=== PATIENT | female | born 1980 | race Caucasian/White ===

== ENCOUNTER 2017-02-01 12:00 | Emergency (ER) | payer OTHER ==
[2017-02-01] MEDS ORDERED: SODIUM CHLORIDE 0.9% 1,000 ML IV STA (12:34)
[2017-02-01] MEDS ORDERED: HYDROmorphone 1 MG/ML 1 ML SYRINGE IVP STA (12:34)
[2017-02-01] MEDS ORDERED: ONDANSETRON 4 MG/2 ML VIAL IVP STA (12:34)
--- NOTE | 2017-02-01 12:37 | ED ---
General Adult HPI - General Chief complaint: Abdominal Pain Stated complaint: ABDOMINAL PAIN, POSS CYST Time Seen by Provider: 02/01/17 12:31 Source: patient, RN notes reviewed Mode of arrival: ambulatory Limitations: no limitations - History of Present Illness Initial comments: Patient 36-year-old female who presents emergency room today with a chief complaint of abdominal pain 4 days. Patient does admit to Some Pain Located in the Left Lower Quadrant. She States Feels Similar to Her Ovarian Cysts That She's Had in the past. She Does Admit to Feeling Nauseated. States That She Went to the Family Doctor Earlier This Morning Was Advised Coming Here to the Emergency Room for Further Evaluation. Patient Denies Any Other Complaints or Associated Symptoms. Patient denies any recent fever, chills, shortness of breath, chest pain, back pain, vomiting, numbness or tingling, dysuria or hematuria, constipation or diarrhea, headaches or visual changes, or any other complaints. - Related Data Home Medications Medication Instructions Recorded Confirmed Cetirizine HCl [Zyrtec] 10 mg PO DAILY 03/10/14 02/01/17 Cholecalciferol [Vitamin D3] 2,000 unit PO BID 02/01/17 02/01/17 Montelukast [Singulair] 10 mg PO DAILY 02/01/17 02/01/17 Omeprazole [PriLOSEC] 20 mg PO DAILY 02/01/17 02/01/17 Qvo-Qoux-Smvme Acid 1 cap PO DAILY 02/01/17 02/01/17 [-U Capsule (formulary)] Previous Rx's Medication Instructions Recorded Hydrocodone/Acetaminophen [[place] 1 each PO Q6HR PRN #10 tab 02/01/17 5-325] Allergies Allergy/AdvReac Type Severity Reaction Status Date / Time promethazine HCl AdvReac JITTERY Verified 02/01/17 12:50 [From Phenergan] topiramate [From Topamax] AdvReac ANXIETY Verified 02/01/17 12:50 Review of Systems ROS Statement: Those systems with pertinent positive or pertinent negative responses have been documented in the HPI. ROS Other: All systems not noted in ROS Statement are negative. Past Medical History Past Medical History: Hyperlipidemia History of Any Multi-Drug Resistant Organisms: None Reported Past Surgical History: Appendectomy Additional Past Surgical History / Comment(s): laproscopy, ovarian cysts removed Past Anesthesia/Blood Transfusion Reactions: No Reported Reaction Past Psychological History: Anxiety, Depression Smoking Status: Former smoker Past Alcohol Use History: None Reported Past Drug Use History: None Reported General Exam - General Exam Comments Initial Comments: General: The patient is awake and alert, in no distress, and does not appear acutely ill. Eye: Pupils are equal, round and reactive to light, extra-ocular movements are intact. No nystagmus. There is normal conjunctiva bilaterally. No signs of icterus. Ears, nose, mouth and throat: There are moist mucous membranes and no oral lesions. Neck: The neck is supple, there is no tenderness or JVD. Cardiovascular: There is a regular rate and rhythm. No murmur, rub or gallop is appreciated. Respiratory: Lungs are clear to auscultation, respirations are non-labored, breath sounds are equal. No wheezes, stridor, rales, or rhonchi. Gastrointestinal: Normal appearance them. Normal bowel sounds. Abdomen soft on palpation. Patient does have mild tenderness left lower quadrant. Mild tenderness right lower quadrant. No rebound tenderness. No Guarding. No CVA tenderness. Musculoskeletal: Normal ROM, no tenderness. Strength 5/5. Sensation intact. Pulses equal bilaterally 2+. Neurological: A&O x 3. CN II-XII intact, There are no obvious motor or sensory deficits. Coordination appears grossly intact. Speech is normal. Skin: Skin is warm and dry and no rashes or lesions are noted. Psychiatric: Cooperative, appropriate mood & affect, normal judgment. Limitations: no limitations Course Vital Signs 02/01/17 02/01/17 12:23 13:45 Temperature 98.1 F Pulse Rate 78 66 Respiratory 22 20 Rate Blood Pressure 108/68 122/71 O2 Sat by Pulse 99 99 Oximetry Medical Decision Making - Medical Decision Making Patient reexamined at this time shows no signs of stress she sitting up in bed. Patient's labs been reviewed. Ultrasound does show evidence for a right- sided ovarian cyst. Does show evidence for possible fibroid and thickened endometrium. Patient does have history of endometriosis. Patient x-ray unremarkable. Patient does have follow-up with the family doctor who is having her follow-up with [facility]. At this time was discussed about possibility of a CT of the abdomen and pelvis. Patient feels comfortable being discharged home. This felt that her symptoms are consistent with the ovarian cyst at this time as there is no nausea no vomiting or diarrhea and advised to follow-up the family doctor and [facility] over the next 2 days. Will be given short prescription of pain medication. Advised return if any symptoms increase or worsen. - Lab Data Result diagrams: 02/01/17 12:55 02/01/17 12:55 Lab Results 02/01/17 02/01/17 02/01/17 Range/Units 12:45 12:45 12:55 WBC 7.3 (3.8-10.6) k/uL RBC 5.01 (3.80-5.40) m/uL Hgb 14.5 (11.4-16.0) gm/dL Hct 41.7 (34.0-46.0) % MCV 83.2 (80.0-100.0) fL MCH 29.0 (25.0-35.0) pg MCHC 34.8 (31.0-37.0) g/dL RDW 13.3 (11.5-15.5) % Plt Count 283 (150-450) k/uL Neutrophils % 64 % Lymphocytes % 27 % Monocytes % 6 % Eosinophils % 1 % Basophils % 1 % Neutrophils # 4.7 (1.3-7.7) k/uL Lymphocytes # 1.9 (1.0-4.8) k/uL Monocytes # 0.5 (0-1.0) k/uL Eosinophils # 0.1 (0-0.7) k/uL Basophils # 0.0 (0-0.2) k/uL Sodium (137-145) mmol/L Potassium (3.5-5.1) mmol/L Chloride (98-107) mmol/L Carbon Dioxide (22-30) mmol/L Anion Gap mmol/L BUN (7-17) mg/dL Creatinine (0.52-1.04) mg/dL Est GFR (MDRD) Af Amer (>60 ml/min/1.73 sqM) Est GFR (MDRD) Non-Af (>60 ml/min/1.73 sqM) Glucose (74-99) mg/dL Calcium (8.4-10.2) mg/dL Total Bilirubin (0.2-1.3) mg/dL AST (14-36) U/L ALT (9-52) U/L Alkaline Phosphatase (38-126) U/L Total Protein (6.3-8.2) g/dL Albumin (3.5-5.0) g/dL Amylase (30-110) U/L Lipase (23-300) U/L Urine Color Light Yellow Urine Appearance Clear (Clear) Urine pH 7.0 (5.0-8.0) Ur Specific [place] 1.003 (1.001-1.035) Urine Protein Negative (Negative) Urine Glucose (UA) Negative (Negative) Urine Ketones Negative (Negative) Urine Blood Negative (Negative) Urine Nitrite Negative (Negative) Urine Bilirubin Negative (Negative) Urine Urobilinogen <2.0 (<2.0) mg/dL Ur Leukocyte Esterase Negative (Negative) Urine HCG, Qual Not Detected (Not Detectd) 02/01/17 Range/Units 12:55 WBC (3.8-10.6) k/uL RBC (3.80-5.40) m/uL Hgb (11.4-16.0) gm/dL Hct (34.0-46.0) % MCV (80.0-100.0) fL MCH (25.0-35.0) pg MCHC (31.0-37.0) g/dL RDW (11.5-15.5) % Plt Count (150-450) k/uL Neutrophils % % Lymphocytes % % Monocytes % % Eosinophils % % Basophils % % Neutrophils # (1.3-7.7) k/uL Lymphocytes # (1.0-4.8) k/uL Monocytes # (0-1.0) k/uL Eosinophils # (0-0.7) k/uL Basophils # (0-0.2) k/uL Sodium 141 (137-145) mmol/L Potassium 4.2 (3.5-5.1) mmol/L Chloride 108 H (98-107) mmol/L Carbon Dioxide 23 (22-30) mmol/L Anion Gap 10 mmol/L BUN 9 (7-17) mg/dL Creatinine 0.70 (0.52-1.04) mg/dL Est GFR (MDRD) Af Amer >60 (>60 ml/min/1.73 sqM) Est GFR (MDRD) Non-Af >60 (>60 ml/min/1.73 sqM) Glucose 72 L (74-99) mg/dL Calcium 10.1 (8.4-10.2) mg/dL Total Bilirubin 0.6 (0.2-1.3) mg/dL AST 24 (14-36) U/L ALT 35 (9-52) U/L Alkaline Phosphatase 129 H (38-126) U/L Total Protein 7.0 (6.3-8.2) g/dL Albumin 3.9 (3.5-5.0) g/dL Amylase 51 (30-110) U/L Lipase 60 (23-300) U/L Urine Color Urine Appearance (Clear) Urine pH (5.0-8.0) Ur Specific [place] (1.001-1.035) Urine Protein (Negative) Urine Glucose (UA) (Negative) Urine Ketones (Negative) Urine Blood (Negative) Urine Nitrite (Negative) Urine Bilirubin (Negative) Urine Urobilinogen (<2.0) mg/dL Ur Leukocyte Esterase (Negative) Urine HCG, Qual (Not Detectd) Disposition Clinical Impression: Abdominal pain Disposition: HOME SELF-CARE Condition: Good Instructions: Abdominal Pain (ED) Additional Instructions: Please use medication as discussed. Please follow-up with [facility]/family doctor in the next 2 days of symptoms have not improved. Please return to emergency room if the symptoms increase or worsen or for any other concerns. Prescriptions: Hydrocodone/Acetaminophen [[place] 5-325] 1 each PO Q6HR PRN #10 tab PRN Reason: Pain Referrals: Mike De León DO [Primary Care Provider] - 1-2 days Time of Disposition: 14:33
[2017-02-01 12:53] LABS: Appearance,Urine Clear (Clear); Bilirubin,Urine Negative (Negative); Glucose,Urine (UA) Negative (Negative); Ketones,Urine Negative (Negative); Leukocyte Esterase,Urine Negative (Negative); Nitrite,Urine Negative (Negative); Protein,Urine Negative (Negative); Specific Gravity,Urine 1.003 (1.001-1.035); UA Billing (MACRO vs. MICRO) CHEM; Urobilinogen,Urine <2.0 mg/dL (<2.0)
[2017-02-01 13:16] LABS: Basophils % (A) 1 %; CH 29.6; CHCM 35.8; Eosinophils # (A) 0.1 k/uL (0-0.7); Eosinophils % (A) 1 %; HCT 41.7 % (34.0-46.0); HDW 2.78; HGB 14.5 gm/dL (11.4-16.0); Luc # (Auto) 0.15; Luc % (Auto) 2; Lymphocytes # (A) 1.9 k/uL (1.0-4.8); Lymphocytes % (A) 27 %; MCHC 34.8 g/dL (31.0-37.0); MCV 83.2 fL (80.0-100.0); Mean Platelet Volume 6.6; Monocytes # (A) 0.5 k/uL (0-1.0); Monocytes % (A) 6 %; Neutrophils # (A) 4.7 k/uL (1.3-7.7); Neutrophils % (A) 64 %; RBC 5.01 m/uL (3.80-5.40); RDW 13.3 % (11.5-15.5); WBC 7.3 k/uL (3.8-10.6); WBC (Perox) 7.26
[2017-02-01 13:33] LABS: ALT 35 U/L (9-52); AST 24 U/L (14-36); Alkaline Phosphatase 129 U/L (38-126); Amylase 51 U/L (30-110); Anion Gap 10 mmol/L; Blood Urea Nitrogen 9 mg/dL (7-17); Calcium 10.1 mg/dL (8.4-10.2); Carbon Dioxide 23 mmol/L (22-30); Chloride 108 mmol/L (98-107); Glucose 72 mg/dL (74-99); Non-African American GFR(MDRD) >60 (>60 ml/min/1.73 sqM); Potassium 4.2 mmol/L (3.5-5.1); Sodium 141 mmol/L (137-145); Total Bilirubin 0.6 mg/dL (0.2-1.3)
--- NOTE | 2017-02-01 14:03 | US ---
EXAMINATION TYPE: US transvaginal DATE OF EXAM: 02/01/2017 COMPARISON: US 2014 CLINICAL HISTORY: pain. EC patient with pelvic pain x 5 days, Lt pain > Rt side; endometriosis TECHNIQUE: Transvaginal (TV) Date of LMP: 01/31/2017 EXAM MEASUREMENTS: Uterus: 7.0 x 3.9 x 3.4 cm Endometrial Stripe: 0.5 cm Right Ovary: 3.2 x 2.1 x 2.3 cm Left Ovary: 2.7 x 1.8 x 1.7 cm 1. Uterus: Anteverted; multiple Nabothian cysts in CX with largest = 0.5 x 0.5 x 0.3cm; uterine fibr oid at superior myometrium noted as oval hypoechoic mass with peripheral color flow = 0.9 x 0.8 x 0.8 cm 2. Endometrium: thickness is wnl for Day 2 LMP; hyperechoic focus in upper right = 0.2 x 0.2 x 0.2cm may be related current menstrual cycle; small complex area additionally seen in upper endo may also be related to current menses 3. Right Ovary: thick walled cyst is noted = 1.8 x 1.5 x 1.6cm 4. Left Ovary: multiple small follicles Spectral, color and waveform Doppler imaging shows good arterial and venous flow within the ovaries ; there is no evidence for ovarian torsion. 5. Bilateral Adnexa: wnl 6. Posterior cul-de-sac: wnl There is no ascites. IMPRESSION: There may be endometrioma associated with the right ovary. No ovarian torsion. Endometriu m is somewhat irregular and may be related to patient's menstrual cycle, consider short interval foll ow-up.
--- NOTE | 2017-02-01 14:04 | XR ---
Abdomen HISTORY: Left lower quadrant pain and nausea Frontal view of the abdomen submitted on 2 images and correlated to prior abdomen and CT abdomen and pelvis 05/22/2014 Lung bases are clear. There is a mild spinal curvature. There is no pneumoperitoneum or bowel obstruc tion. Bone mineralization is normal. IMPRESSION: No abnormalities evident
[2017-02-01 14:50] VITALS: BP 127/86; PULSE 64; RESP 16; TEMP 98.2
== END 2017-02-01 14:55 | disposition home or self-care (01) ==
LOC: EC 12:00
DX: R10.32 Left lower quadrant pain (principal); R10.31 Right lower quadrant pain; R11.0 Nausea; Z90.49 Acquired absence of other specified parts of digestive tract; Z87.42 Personal history of other diseases of the female genital tract; Z87.891 Personal history of nicotine dependence; Z88.8 Allergy status to other drugs, medicaments and biological substances; Z79.899 Other long term (current) drug therapy
CPT/HCPCS: 99284; 96374; 96375; 96361; 36415; 80053; 82150; 83690; 85025; 81003; 81025; 74000; 93975; 76830; J2405; J1170

== ENCOUNTER → 2017-04-07 | Outpatient (CLI) | payer OTHER ==
--- NOTE | 2017-04-07 15:44 | FL ---
EXAMINATION TYPE: FL hysterosalpingography DATE OF EXAM: 04/07/2017 HISTORY: Fallopian tube occlusion. Informed consent was obtained and all the patient's questions were answered. A speculum was introduce d and the external cervical os was localize. The external cervical os was cleansed and a Betadine so lution on 2 occasions. Hysterosalpingography catheter was introduced into the uterus and balloon ins ufflation device deployed. Approximately 8 cc of Omnipaque 240 was injected in a retrograde manner. 54 seconds of fluoroscopy time was utilized. The uterus has a normal size shape and appearance. No persistent uterine filling defects are seen. Both fallopian tubes fill with contrast normally. There is spill of contrast into the peritoneal cav ity bilaterally left greater than right. IMPRESSION: Normal hysterosalpingogram with bilateral spill of contrast into the peritoneal cavity. No evidence of occlusion.
== END | disposition home or self-care (01) ==
LOC: RADFLMAIN 13:02
PROVIDERS: ATTEND Obstetrics & Gynecology
DX: Z30.49 Encounter for surveillance of other contraceptives (principal); Z98.51 Tubal ligation status
CPT/HCPCS: 36415; 58340; 74740; 84702

== ENCOUNTER → 2019-01-17 | Outpatient (CLI) | payer OTHER ==
--- NOTE | 2019-01-17 08:31 | CT ---
EXAMINATION TYPE: CT facial bones wo/w con DATE OF EXAM: 01/17/2019 COMPARISON: None HISTORY: 38-year-old female Chronic sinusitis CT DLP: 1225.3 mGycm Automated exposure control for dose reduction was used. TECHNIQUE: Pre and postcontrast axial views of the paranasal sinuses were obtained with administratio n of 100 mL Isovue 300 IV contrast. Coronal reconstructions were performed. FINDINGS: PARANASAL SINUSES: The frontal, ethmoid, maxillary and sphenoid sinuses are clear and well pneumatized. There is no mucosal thickening or air-fluid level. Reactive nestor- osteogenesis is not seen. There is no destruction of the osseous dale of the paranasal sinuses. THE NASAL CAVITY: The osteomeatal complexes are patent. The anterior nasal septum is deviated towards the right. Visualized intracranial structures and orbits and globes appear clear. Mastoid air cells and middle ear cavities are well pneumatized. Reformatted images confirm above findings. IMPRESSION: No significant paranasal sinus disease appreciated. Focal deviation of the anterior nasal septum towa rds the right.
== END | disposition home or self-care (01) ==
LOC: RADCTMAIN 07:05
DX: J34.2 Deviated nasal septum (principal)
CPT/HCPCS: 70488

== ENCOUNTER 2019-07-15 16:07 | Emergency (ER) | payer OTHER ==
[2019-07-15 16:16] VITALS: RESP 18; TEMP 97.7
[2019-07-15] MEDS ORDERED: SODIUM CHLORIDE 0.9% 1,000 ML IV STA (17:36)
[2019-07-15] MEDS ORDERED: LORazepam 1 MG TAB PO STA (17:36)
--- NOTE | 2019-07-15 18:13 | XR ---
EXAMINATION TYPE: XR chest 2V DATE OF EXAM: 07/15/2019 COMPARISON: NONE HISTORY: Chest pain TECHNIQUE: 2 views FINDINGS: Heart and mediastinum are normal. Lungs are clear. Diaphragm is normal. Bony thorax is inta ct. IMPRESSION: Normal chest.
[2019-07-15 18:14] LABS: Appearance,Urine Clear (Clear); Bilirubin,Urine Negative (Negative); Blood,Urine Negative (Negative); Color,Urine Yellow; Glucose,Urine (UA) Negative (Negative); Ketones,Urine Negative (Negative); Leukocyte Esterase,Urine Negative (Negative); Nitrite,Urine Negative (Negative); PH, Urine 6.5 (5.0-8.0); Protein,Urine Negative (Negative); Specific Gravity,Urine 1.016 (1.001-1.035); Urobilinogen,Urine <2.0 mg/dL (<2.0)
[2019-07-15 18:28] VITALS: PULSE 90
[2019-07-15 18:38] LABS: Basophils # (A) 0.2 k/uL (0-0.2); Basophils % (A) 3 %; Eosinophils # (A) 0.1 k/uL (0-0.7); Eosinophils % (A) 2 %; HCT 43.5 % (34.0-46.0); HGB 15.1 gm/dL (11.4-16.0); Lymphocytes # (A) 2.9 k/uL (1.0-4.8); Lymphocytes % (A) 35 %; MCH 29.7 pg (25.0-35.0); MCHC 34.6 g/dL (31.0-37.0); Mean Platelet Volume 7.1; Monocytes # (A) 0.5 k/uL (0-1.0); Monocytes % (A) 6 %; Neutrophils # (A) 4.4 k/uL (1.3-7.7); Neutrophils % (A) 53 %; Platelet Count 289 k/uL (150-450); RBC 5.06 m/uL (3.80-5.40); WBC 8.2 k/uL (3.8-10.6)
[2019-07-15 18:47] LABS: ALT 91 U/L (4-34); AST 67 U/L (14-36); African American GFR (CKD) >90 (>60 ml/min/1.73 sqM); Albumin 4.1 g/dL (3.5-5.0); Alkaline Phosphatase 123 U/L (38-126); Anion Gap 8 mmol/L; Blood Urea Nitrogen 11 mg/dL (7-17); Calcium 9.5 mg/dL (8.4-10.2); Carbon Dioxide 24 mmol/L (22-30); Chloride 106 mmol/L (98-107); Glucose 95 mg/dL (74-99); Magnesium 1.8 mg/dL (1.6-2.3); Non-African American GFR(CKD) 86 (>60 ml/min/1.73 sqM); Potassium 4.4 mmol/L (3.5-5.1); Sodium 138 mmol/L (137-145); Total Bilirubin 0.5 mg/dL (0.2-1.3); Total Protein 7.5 g/dL (6.3-8.2)
[2019-07-15 18:53] LABS: D-Dimer 0.3 mg/L FEU (<0.60); INR 0.9 (<1.2); Partial Thromboplastin Time 30.3 sec (22.0-30.0); Prothrombin Time 10.2 sec (9.0-12.0)
--- NOTE | 2019-07-15 19:25 | ED ---
General Adult HPI - General Chief complaint: Chest Pain Stated complaint: chest pain Time Seen by Provider: 07/15/19 17:26 Source: patient, RN notes reviewed, old records reviewed Mode of arrival: wheelchair Limitations: no limitations - History of Present Illness Initial comments: 38-year-old female patient past history significant for anxiety presents to ED for chief complaint of evaluation of chest tightness, racing heart, some mild shortness of breath. Patient reports that she was talking to her sister on the phone about Ellery plans and became very stressed and overwhelmed. Patient reports he then began to experience these symptoms. This occurred approximately around 2 PM. Patient does believe that this may be anxiety related. Patient does report however that she had an EKG done at her primary care office that displayed a reported T-wave inversions she is supposed to see cardiology first of July. Denies any other complaints at this time. Systemic: Pt denies fatigue, fever/chills, rash. Pt denies weakness, night sweats, weight loss. Neuro: Pt denies headache, visual disturbances, syncope or pre-syncope. HEENT: Pt denies ocular discharge or irritation, otalgia, rhinorrhea, pharyngitis or notable lymphadenopathy. Cardiopulmonary: Pt denies chest pain, dyspnea on exertion. Abdominal/GI: Pt denies abdominal pain, n/v/d. : Pt denies dysuria, burning w/ urination, frequency/urgency. Denies new onset urinary or bowel incontinence. MSK: Pt denies myalgia, loss of strength or function in extremities. Neuro: Pt denies new onset weakness, paresthesias. - Related Data Home Medications Medication Instructions Recorded Confirmed Cetirizine HCl [Zyrtec] 10 mg PO DAILY 03/10/14 02/01/17 Cholecalciferol [Vitamin D3] 2,000 unit PO BID 02/01/17 02/01/17 Montelukast [Singulair] 10 mg PO DAILY 02/01/17 02/01/17 Omeprazole [PriLOSEC] 20 mg PO DAILY 02/01/17 02/01/17 Ckv-Vxej-Ovyhq Acid 1 cap PO DAILY 02/01/17 02/01/17 [-U Capsule (formulary)] Previous Rx's Medication Instructions Recorded Hydrocodone/Acetaminophen [[place] 1 each PO Q6HR PRN #10 tab 02/01/17 5-325] Allergies Allergy/AdvReac Type Severity Reaction Status Date / Time promethazine HCl AdvReac JITTERY Verified 07/15/19 16:16 [From Phenergan] topiramate [From Topamax] AdvReac ANXIETY Verified 07/15/19 16:16 Review of Systems ROS Statement: Those systems with pertinent positive or pertinent negative responses have been documented in the HPI. ROS Other: All systems not noted in ROS Statement are negative. Past Medical History Past Medical History: Hyperlipidemia History of Any Multi-Drug Resistant Organisms: None Reported Past Surgical History: Appendectomy Additional Past Surgical History / Comment(s): laproscopy, ovarian cysts removed Past Anesthesia/Blood Transfusion Reactions: No Reported Reaction Past Psychological History: Anxiety, Depression Smoking Status: Former smoker Past Alcohol Use History: None Reported Past Drug Use History: None Reported General Exam - General Exam Comments Initial Comments: Constitutional: NAD, AOX3, Pt has pleasant affect. HEENT: NC/AT, trachea midline, neck supple, no lymphadenopathy. Posterior pharynx non erythematous, without exudates. External ears appear normal, without discharge. Mucous membranes moist. Eyes PERRLA, EOM intact. There is no scleral icterus. No pallor noted. Cardiopulmonary: RRR, no murmurs, rubs or gallops, no JVD noted. Lungs CTAB in anterior and posterior [place]. No peripheral edema. Abdominal exam: Abdomen soft and non-distended. Abdomen non-tender to palpation in all 4 quadrants. Bowel sounds active in LLQ. No hepatosplenomegaly. No ecchymosis Neuro: CN II-XII grossly intact. No nuchal rigidity. No raccon eyes, no wakefield sign, no hemotympanum. No cervical spinal tenderness. MSK: No posterior calf tenderness bilaterally, homans sign negative bilaterally. Posterior tibialis and radial pulse +2 bilaterally. Sensation intact in upper and lower extremities. Full active ROM in upper and lower extremities, 5/5 str egnth. Limitations: no limitations Course Vital Signs 07/15/19 07/15/19 16:13 18:24 Temperature 97.7 F Pulse Rate 101 H 90 Respiratory 18 18 Rate Blood Pressure 123/91 123/92 O2 Sat by Pulse 98 98 Oximetry Medical Decision Making - Medical Decision Making 38-year-old female patient presents to ED for evaluation of chest tightness, some very mild shortness of breath, heart palpitations after becoming upset arranging Jennifer plans. Patient will signs are stable, afebrile. Physical exam did not display acute pathology. Laboratory investigations overall unremarkable. Mildly elevated liver enzymes, troponin negative, d-dimer negative. EKG nonischemic. No change from prior EKG July 04. Patient was administered anti anxiolytic, is presently symptom-free at this time. Believes this is most likely anxiety. Patient was discharged with follow-up with primary care riding linemarker as scheduled. Return to ER if condition worsens. Case discussed with Dr. Sol. - Lab Data Result diagrams: 07/15/19 16:25 07/15/19 16:25 Lab Results 07/15/19 07/15/19 07/15/19 Range/Units 16:25 16:25 16:25 WBC 8.2 (3.8-10.6) k/uL RBC 5.06 (3.80-5.40) m/uL Hgb 15.1 (11.4-16.0) gm/dL Hct 43.5 (34.0-46.0) % MCV 86.0 (80.0-100.0) fL MCH 29.7 (25.0-35.0) pg MCHC 34.6 (31.0-37.0) g/dL RDW 13.0 (11.5-15.5) % Plt Count 289 (150-450) k/uL Neutrophils % 53 % Lymphocytes % 35 % Monocytes % 6 % Eosinophils % 2 % Basophils % 3 % Neutrophils # 4.4 (1.3-7.7) k/uL Lymphocytes # 2.9 (1.0-4.8) k/uL Monocytes # 0.5 (0-1.0) k/uL Eosinophils # 0.1 (0-0.7) k/uL Basophils # 0.2 (0-0.2) k/uL PT 10.2 (9.0-12.0) sec INR 0.9 (<1.2) APTT 30.3 H (22.0-30.0) sec D-Dimer 0.30 (<0.60) mg/L FEU Sodium 138 (137-145) mmol/L Potassium 4.4 (3.5-5.1) mmol/L Chloride 106 (98-107) mmol/L Carbon Dioxide 24 (22-30) mmol/L Anion Gap 8 mmol/L BUN 11 (7-17) mg/dL Creatinine 0.87 (0.52-1.04) mg/dL Est GFR (CKD-EPI)AfAm >90 (>60 ml/min/1.73 sqM) Est GFR (CKD-EPI)NonAf 86 (>60 ml/min/1.73 sqM) Glucose 95 (74-99) mg/dL Calcium 9.5 (8.4-10.2) mg/dL Magnesium 1.8 (1.6-2.3) mg/dL Total Bilirubin 0.5 (0.2-1.3) mg/dL AST 67 H (14-36) U/L ALT 91 H (4-34) U/L Alkaline Phosphatase 123 (38-126) U/L Troponin I (0.000-0.034) ng/mL Total Protein 7.5 (6.3-8.2) g/dL Albumin 4.1 (3.5-5.0) g/dL Urine Color Urine Appearance (Clear) Urine pH (5.0-8.0) Ur Specific [place] (1.001-1.035) Urine Protein (Negative) Urine Glucose (UA) (Negative) Urine Ketones (Negative) Urine Blood (Negative) Urine Nitrite (Negative) Urine Bilirubin (Negative) Urine Urobilinogen (<2.0) mg/dL Ur Leukocyte Esterase (Negative) Urine HCG, Qual (Not Detectd) 07/15/19 07/15/19 07/15/19 Range/Units 16:25 17:15 17:15 WBC (3.8-10.6) k/uL RBC (3.80-5.40) m/uL Hgb (11.4-16.0) gm/dL Hct (34.0-46.0) % MCV (80.0-100.0) fL MCH (25.0-35.0) pg MCHC (31.0-37.0) g/dL RDW (11.5-15.5) % Plt Count (150-450) k/uL Neutrophils % % Lymphocytes % % Monocytes % % Eosinophils % % Basophils % % Neutrophils # (1.3-7.7) k/uL Lymphocytes # (1.0-4.8) k/uL Monocytes # (0-1.0) k/uL Eosinophils # (0-0.7) k/uL Basophils # (0-0.2) k/uL PT (9.0-12.0) sec INR (<1.2) APTT (22.0-30.0) sec D-Dimer (<0.60) mg/L FEU Sodium (137-145) mmol/L Potassium (3.5-5.1) mmol/L Chloride (98-107) mmol/L Carbon Dioxide (22-30) mmol/L Anion Gap mmol/L BUN (7-17) mg/dL Creatinine (0.52-1.04) mg/dL Est GFR (CKD-EPI)AfAm (>60 ml/min/1.73 sqM) Est GFR (CKD-EPI)NonAf (>60 ml/min/1.73 sqM) Glucose (74-99) mg/dL Calcium (8.4-10.2) mg/dL Magnesium (1.6-2.3) mg/dL Total Bilirubin (0.2-1.3) mg/dL AST (14-36) U/L ALT (4-34) U/L Alkaline Phosphatase (38-126) U/L Troponin I <0.012 (0.000-0.034) ng/mL Total Protein (6.3-8.2) g/dL Albumin (3.5-5.0) g/dL Urine Color Yellow Urine Appearance Clear (Clear) Urine pH 6.5 (5.0-8.0) Ur Specific [place] 1.016 (1.001-1.035) Urine Protein Negative (Negative) Urine Glucose (UA) Negative (Negative) Urine Ketones Negative (Negative) Urine Blood Negative (Negative) Urine Nitrite Negative (Negative) Urine Bilirubin Negative (Negative) Urine Urobilinogen <2.0 (<2.0) mg/dL Ur Leukocyte Esterase Negative (Negative) Urine HCG, Qual Not Detected (Not Detectd) Disposition Clinical Impression: Anxiety, Atypical chest pain Disposition: HOME SELF-CARE Condition: Stable Instructions (If sedation given, give patient instructions): Chest Pain (ED), Anxiety (ED) Additional Instructions: Follow-up with primary care provider tomorrow and linemarker as scheduled. Return to ER if condition worsens in any way. Is patient prescribed a controlled substance at d/c from ED?: No Referrals: [facility],Clinic [Primary Care Provider] - 1-2 days
--- NOTE | 2019-07-15 19:26 | ED ---
Medical Decision Making - Lab Data Result diagrams: 07/15/19 16:25 07/15/19 16:25 Lab Results 07/15/19 07/15/19 07/15/19 Range/Units 16:25 16:25 16:25 WBC 8.2 (3.8-10.6) k/uL RBC 5.06 (3.80-5.40) m/uL Hgb 15.1 (11.4-16.0) gm/dL Hct 43.5 (34.0-46.0) % MCV 86.0 (80.0-100.0) fL MCH 29.7 (25.0-35.0) pg MCHC 34.6 (31.0-37.0) g/dL RDW 13.0 (11.5-15.5) % Plt Count 289 (150-450) k/uL Neutrophils % 53 % Lymphocytes % 35 % Monocytes % 6 % Eosinophils % 2 % Basophils % 3 % Neutrophils # 4.4 (1.3-7.7) k/uL Lymphocytes # 2.9 (1.0-4.8) k/uL Monocytes # 0.5 (0-1.0) k/uL Eosinophils # 0.1 (0-0.7) k/uL Basophils # 0.2 (0-0.2) k/uL PT 10.2 (9.0-12.0) sec INR 0.9 (<1.2) APTT 30.3 H (22.0-30.0) sec D-Dimer 0.30 (<0.60) mg/L FEU Sodium 138 (137-145) mmol/L Potassium 4.4 (3.5-5.1) mmol/L Chloride 106 (98-107) mmol/L Carbon Dioxide 24 (22-30) mmol/L Anion Gap 8 mmol/L BUN 11 (7-17) mg/dL Creatinine 0.87 (0.52-1.04) mg/dL Est GFR (CKD-EPI)AfAm >90 (>60 ml/min/1.73 sqM) Est GFR (CKD-EPI)NonAf 86 (>60 ml/min/1.73 sqM) Glucose 95 (74-99) mg/dL Calcium 9.5 (8.4-10.2) mg/dL Magnesium 1.8 (1.6-2.3) mg/dL Total Bilirubin 0.5 (0.2-1.3) mg/dL AST 67 H (14-36) U/L ALT 91 H (4-34) U/L Alkaline Phosphatase 123 (38-126) U/L Troponin I (0.000-0.034) ng/mL Total Protein 7.5 (6.3-8.2) g/dL Albumin 4.1 (3.5-5.0) g/dL Urine Color Urine Appearance (Clear) Urine pH (5.0-8.0) Ur Specific [place] (1.001-1.035) Urine Protein (Negative) Urine Glucose (UA) (Negative) Urine Ketones (Negative) Urine Blood (Negative) Urine Nitrite (Negative) Urine Bilirubin (Negative) Urine Urobilinogen (<2.0) mg/dL Ur Leukocyte Esterase (Negative) Urine HCG, Qual (Not Detectd) 07/15/19 07/15/19 07/15/19 Range/Units 16:25 17:15 17:15 WBC (3.8-10.6) k/uL RBC (3.80-5.40) m/uL Hgb (11.4-16.0) gm/dL Hct (34.0-46.0) % MCV (80.0-100.0) fL MCH (25.0-35.0) pg MCHC (31.0-37.0) g/dL RDW (11.5-15.5) % Plt Count (150-450) k/uL Neutrophils % % Lymphocytes % % Monocytes % % Eosinophils % % Basophils % % Neutrophils # (1.3-7.7) k/uL Lymphocytes # (1.0-4.8) k/uL Monocytes # (0-1.0) k/uL Eosinophils # (0-0.7) k/uL Basophils # (0-0.2) k/uL PT (9.0-12.0) sec INR (<1.2) APTT (22.0-30.0) sec D-Dimer (<0.60) mg/L FEU Sodium (137-145) mmol/L Potassium (3.5-5.1) mmol/L Chloride (98-107) mmol/L Carbon Dioxide (22-30) mmol/L Anion Gap mmol/L BUN (7-17) mg/dL Creatinine (0.52-1.04) mg/dL Est GFR (CKD-EPI)AfAm (>60 ml/min/1.73 sqM) Est GFR (CKD-EPI)NonAf (>60 ml/min/1.73 sqM) Glucose (74-99) mg/dL Calcium (8.4-10.2) mg/dL Magnesium (1.6-2.3) mg/dL Total Bilirubin (0.2-1.3) mg/dL AST (14-36) U/L ALT (4-34) U/L Alkaline Phosphatase (38-126) U/L Troponin I <0.012 (0.000-0.034) ng/mL Total Protein (6.3-8.2) g/dL Albumin (3.5-5.0) g/dL Urine Color Yellow Urine Appearance Clear (Clear) Urine pH 6.5 (5.0-8.0) Ur Specific [place] 1.016 (1.001-1.035) Urine Protein Negative (Negative) Urine Glucose (UA) Negative (Negative) Urine Ketones Negative (Negative) Urine Blood Negative (Negative) Urine Nitrite Negative (Negative) Urine Bilirubin Negative (Negative) Urine Urobilinogen <2.0 (<2.0) mg/dL Ur Leukocyte Esterase Negative (Negative) Urine HCG, Qual Not Detected (Not Detectd) Disposition Clinical Impression: Anxiety, Atypical chest pain Disposition: HOME SELF-CARE Condition: Stable Instructions (If sedation given, give patient instructions): Chest Pain (ED), Anxiety (ED) Additional Instructions: Follow-up with primary care provider tomorrow and 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 Your liver enzymes were very mildly elevated, have them rechecked by her primary care provider. Return to ER if condition worsens in any way. Is patient prescribed a controlled substance at d/c from ED?: No Referrals: [facility],Clinic [Primary Care Provider] - 1-2 days
[2019-07-15 19:44] VITALS: BP 101/62
== END 2019-07-15 19:44 | disposition home or self-care (01) ==
LOC: EC 16:07
DX: F41.9 Anxiety disorder, unspecified (principal); R07.89 Other chest pain; R06.02 Shortness of breath; R00.0 Tachycardia, unspecified; R74.8 Abnormal levels of other serum enzymes; E78.5 Hyperlipidemia, unspecified; Z88.8 Allergy status to other drugs, medicaments and biological substances; Z87.891 Personal history of nicotine dependence
CPT/HCPCS: 36415; 71046; 80053; 81003; 81025; 83735; 84484; 85025; 85379; 85610; 85730; 93005; 99285

== ENCOUNTER → 2020-08-19 | Outpatient (CLI) | payer OTHER ==
[2020-08-19 09:14] VITALS: BP 111/70; PULSE 109; RESP 16; TEMP 98.1
--- NOTE | 2020-08-19 09:29 | P.CONS ---
History of Present Illness - Reason for Consult Consult date: 08/19/20 - Chief Complaint Headache - History of Present Illness This is a 49-year-old lady with a history of chronic headache which starts in the occipital area and radiates around her head. She describes this headache as embolize around her head. The patient has been treated for migraine headaches with no improvement. This headache is associated with nausea and photophobia. The patient failed to respond to Topamax previously she also failed to respond to Imitrex. She did not notice any exacerbating or relieving factors this headache happens frequently. The patient states that when the headache is bad she cannot touch the back of her head. The patient says that her pain does not increase by moving her neck. The patient was referred to our clinic to try occipital nerve block. Past Medical History Past Medical History: Hyperlipidemia Additional Past Medical History / Comment(s): left sided head pain primarily from front to back, interstitial cystitis, current tx. for infertility History of Any Multi-Drug Resistant Organisms: None Reported Past Surgical History: Appendectomy Additional Past Surgical History / Comment(s): laproscopy, ovarian cysts removed, colonoscopy Past Anesthesia/Blood Transfusion Reactions: No Reported Reaction Past Psychological History: Anxiety, Depression Smoking Status: Former smoker Past Alcohol Use History: Rare Additional Past Alcohol Use History / Comment(s): quit smoking 2014, smoked on & off since age of 19, usually was <ppd Past Drug Use History: None Reported Medications and Allergies Home Medications Medication Instructions Recorded Confirmed Type Cholecalciferol [Vitamin D3] 2,000 unit PO BID 02/01/17 08/13/20 History Montelukast [Singulair] 10 mg PO DAILY 02/01/17 08/13/20 History Omeprazole [PriLOSEC] 20 mg PO DAILY 02/01/17 08/13/20 History [id number] Acid 1 cap PO DAILY 02/01/17 08/13/20 History [-U Capsule (formulary)] Amitriptyline HCl [Elavil] 20 mg PO HS 08/13/20 08/13/20 History Fluticasone Nasal [place] [Flonase 2 spr EA NOSTRIL DAILY 08/13/20 08/13/20 History Nasal [place]] Loratadine [Claritin] 10 mg PO DAILY 08/13/20 08/13/20 History Pentosan Polysulfate Sodium 100 mg PO BID 08/13/20 08/13/20 History [Elmiron] clomiPHENE CITRATE 50 mg PO DIRECTED 08/13/20 08/13/20 History Allergies Allergy/AdvReac Type Severity Reaction Status Date / Time promethazine HCl AdvReac JITTERY Verified 08/13/20 12:23 [From Phenergan] topiramate [From Topamax] AdvReac ANXIETY Verified 08/13/20 12:23 Physical Exam Vitals: Vital Signs Temp Pulse Resp BP Pulse Ox 08/19/20 09:11 98.1 F 109 H 16 111/70 96 - Constitutional General appearance: morbidly obese - EENT Eyes: PERRLA - Neurologic Muscle strength exam of the upper extremities is within normal limits Postoperative tenderness in the occipital area bilaterally more on the left side than the right side. She has normal range of motion of the cervical spine. Cerebellar signs are normal in the upper extremities. Neurologic: CNII-XII intact Assessment and Plan Plan: This is a 39-year-old lady with chronic headache. The patient diagnosis includes migraine headache, occipital neuralgia. The patient's brain MRI was perfectly normal The patient will be scheduled for occipital nerve block bilaterally. The procedure was explained to the patient and her questions were answered. I thank you for the referral
== END | disposition home or self-care (01) ==
LOC: PNWHC3 08:52
PROVIDERS: ATTEND Anesthesiology
DX: Z53.9 Procedure and treatment not carried out, unspecified reason (principal)

== ENCOUNTER 2020-08-25 08:18 | Day surgery (SDC) | payer OTHER ==
[2020-08-21 15:56] VITALS: BMI 37.4
[2020-08-25] MEDS ORDERED: LIDOCAINE 1% (10MG/ML) FOR IV START INTRADERMA ONE (08:57)
[2020-08-25] MEDS ORDERED: LACTATED RINGERS 1,000 ML IV ONE (08:57)
[2020-08-25 09:00] VITALS: RESP 16; TEMP 97
[2020-08-25] MEDS ORDERED: ROPIVACAINE 5MG/ML 20ML VIAL ONE (09:02)
[2020-08-25] MEDS ORDERED: MIDAZOLAM 2 MG/2 ML VIAL ONE (09:02)
[2020-08-25] MEDS ORDERED: methylPREDNISolone ACETATE 40 MG/ML 1 ML VIAL ONE (09:02)
--- NOTE | 2020-08-25 09:11 | P.PCN ---
Date of Procedure: 08/25/20 Description of Procedure: Pre-operative diagnosis: bilateral occipital neuralgia Post Operative Diagnosis same Procedure: bilateral occipital nerve block ANESTHESIA: 2 mg versed, sedation time 5 min EBL: Minimal PROCEDURE INDICATION: The patient with neck pain and headache secondary to occipital neuralgia unresponsive to conservative treatments. PROCEDURE DESCRIPTION / TECHNIQUE: The patient was seen and identified in the preoperative area. Risks, benefits, complications, and alternatives were discussed with the patient, the patient agreed to proceed with the procedure and signed the consent. IV was started. Vital signs remained stable throughout the procedure. Patient was taken to the OR and time out was completed. The patient was placed in the seated position on the procedure table. The cervical area and bilateral occiptial area were prepped with alcohol swab. Vital signs were closely monitored during the procedure. The bilateral occiptal ridge was palpated and was then accessed with a 25 G needle. Then after negative aspiration, 3 ml of the block solution containing 5 ml of ropivacaine 0.5% and Kenalog 40 mg was injected to the region of each occipital nerve. total of 80 mg kenalog given. Needle was withdrawn intact. Patient tolerated procedure well. No acute complications.
[2020-08-25] MEDS ORDERED: IV FLUID CONTINUATION 1,000 ML IV ONE (09:15)
[2020-08-25 09:31] VITALS: BP 110/73; PULSE 85
== END 2020-08-25 09:53 | disposition home or self-care (01) ==
LOC: ORPAIN 08:18
PROVIDERS: ATTEND Anesthesiology
DX: M54.81 Occipital neuralgia (principal)
CPT/HCPCS: 81025; 64405; J2250; J1030; J2795

== ENCOUNTER 2020-09-15 09:23 | Day surgery (SDC) | payer OTHER ==
[2020-09-10 11:26] VITALS: BMI 37.4
[~2020-09-15 09:23] MED LIST: LACTATED RINGERS 1,000 ML IV SCH
[2020-09-15] MEDS ORDERED: LIDOCAINE 1% (10MG/ML) FOR IV START INTRADERMA ONE (10:16)
[2020-09-15] MEDS ORDERED: MIDAZOLAM 2 MG/2 ML VIAL ONE (11:10)
[2020-09-15] MEDS ORDERED: ROPIVACAINE 5MG/ML 20ML VIAL ONE (11:10)
[2020-09-15] MEDS ORDERED: fentaNYL (PF) 50 MCG/ML 2 ML AMP ONE (11:10)
[2020-09-15] MEDS ORDERED: methylPREDNISolone ACETATE 40 MG/ML 1 ML VIAL ONE (11:10)
--- NOTE | 2020-09-15 11:21 | P.PCN ---
Date of Procedure: 09/15/20 Procedure(s) Performed: Preoperative diagnoses= 1- Greater occipital neuralgia Postoperative diagnoses= same as preoperative diagnosis. Procedure= Bilateral Greater occipital nerve block Anesthesia= moderate sedation with Versed 2 mg and fentanyl 100 micrograms and local infiltration with lidocaine 1% 4 ml Estimated blood loss=minimal. Procedure indication= the patient had a history of severe chronic neck pain ,and headache, diagnosed with occipital neuralgia exam was positive for severe tenderness over the occipital nerve bilaterally, she will be a good candidate occipital nerve block, patient failed conservative management Procedure description= the patient was seen and identified in the preoperative holding area, risks and benefits and alternative of the procedure and possible complications discussed with the patient, and he agreed with the preceding, patient signed the consent, an IV was started, and vital signs were monitored and were stable throughout the procedure, patient was placed in the sitting position or table and the neck area was prepped and draped with a sterile fash ion, vital signs were closely monitored during the procedure, 25-gauge needle advanced 1 inch lateral to the occipital protuberance on the right side, at the location of the right occipital nerve , then after negative aspiration for heme and CSF and there was no paresthesia during the injection, 5 ml of Robivacaine 0.5% and 40 mg of Depo-Medrol injected after negative aspiration, the needle rem lottie, and the entire same procedure was repeated for the left Greater occipital nerve. Patient tolerated the procedure well without any complication, The patient returned to supine position after the back was cleaned and a Band- Aid applied, the patient transported to recovery room in stable condition and he was monitored for 30 minutes before he was discharged home and then patient was reexamined before going home and patient was discharged in stable condition and patient will follow up with the pain clinic in a few weeks.
[2020-09-15] MEDS ORDERED: IV FLUID CONTINUATION 1,000 ML IV ONE (11:26)
[2020-09-15 11:29] VITALS: RESP 18
[2020-09-15 11:42] VITALS: BP 125/77; PULSE 84
== END 2020-09-15 12:10 | disposition home or self-care (01) ==
LOC: ORPAIN 09:23
PROVIDERS: ATTEND Specialist
DX: G89.29 Other chronic pain (principal); M54.81 Occipital neuralgia; Z88.8 Allergy status to other drugs, medicaments and biological substances
CPT/HCPCS: 81025; 64405; J2250; J1030; J3010; J2795

== ENCOUNTER → 2020-09-30 | Outpatient (CLI) | payer OTHER ==
[2020-09-30 10:08] VITALS: BP 110/72; PULSE 109; RESP 18; TEMP 97.3
--- NOTE | 2020-09-30 10:09 | P.PAINPG ---
Subjective Progress Note Date: 09/30/20 - History of Present Illness This is a 49-year-old lady with a history of chronic headache which starts in the occipital area and radiates around her head. She describes this headache as embolize around her head. The patient has been treated for migraine headaches with no improvement. This headache is associated with nausea and photophobia. The patient failed to respond to Topamax previously she also failed to respond to Imitrex. Most recently had occipital nerve block x 2. Here for follow up today. She noted that she did not get much meaningful relief from occipital nerve blocks, only a few days with about 20% relief. Pain is located mostly in the frontal aspect of her head described as sharp and throbbing. Patient is over appointment with Dr. Wray at the end of the month. Currently a 7/10, at its worst a 10/10, at its best a 6/10. In addition to above, 13-point review of systems is also negative for chest pain, shortness of breath, changes in vision, changes in hearing, new onset weakness, abdominal pain, diarrhea, extreme fatigue, malaise, fever, skin changes, homicidal or suicidal ideation, or bowel or bladder incontinence. - Constitutional General appearance: morbidly obese - EENT Eyes: PERRLA - Neurologic Muscle strength exam of the upper extremities is within normal limits tenderness in the occipital area bilaterally more on the left side than the right side. She has normal range of motion of the cervical spine. Cerebellar signs are normal in the upper extremities. Neurologic: CNII-XII intact Assessment and Plan Plan: This is a 39-year-old lady with chronic headache. The patient diagnosis includes migraine headache, occipital neuralgia. The patient's brain MRI was perfectly normal Bilateral occipital nerve blocks did not provide clinically meaningful relief. She does have pain in the region of the C2-C3 and C3-C4 facet joints, I did mention that we could get a cervical MRI to see if we could consider medial branch workup. At this point patient would like to follow with Dr. Wray before getting an MRI. She has an appointment at the end of the month I spent 25 minutes on patient care today. The time was used to review medical records including relevant urine studies and prescription history (MAPs), review of the available imaging, evaluation and examination the patient, coordination of care at the medical staff and if applicable referring physicians, as well as creation of the medical record. PQRS Measure Charge Sheet PQRS Narrative: Smoking Status Former smoker Hx Alcohol Use (MH) Yes: rare Home Medications: Ambulatory Orders Cholecalciferol [Vitamin D3] 2,000 unit PO BID 02/01/17 Montelukast [Singulair] 10 mg PO DAILY 02/01/17 Omeprazole [PriLOSEC] 20 mg PO DAILY 02/01/17 [id number] Acid [-U Capsule (formulary)] 1 cap PO DAILY 02/01/17 Amitriptyline HCl [Elavil] 20 mg PO HS 08/13/20 Fluticasone Nasal [place] [Flonase Nasal [place]] 2 spr EA NOSTRIL DAILY 08/13/20 Loratadine [Claritin] 10 mg PO DAILY 08/13/20 Pentosan Polysulfate Sodium [Elmiron] 100 mg PO BID 08/13/20 Controlled Substance Measures - Controlled Substance Measures Is patient prescribed a controlled substance at discharge?: No
== END ==
LOC: PNWHC3 09:54
PROVIDERS: ATTEND Anesthesiology
DX: G43.909 Migraine, unspecified, not intractable, without status migrainosus (principal); M54.2 Cervicalgia; M54.81 Occipital neuralgia; Z87.891 Personal history of nicotine dependence; Z79.899 Other long term (current) drug therapy
CPT/HCPCS: 99211

== ENCOUNTER → 2020-11-11 | Outpatient (CLI) | payer OTHER ==
--- NOTE | 2020-11-12 07:26 | MR ---
MRI CERVICAL SPINE: CLINICAL HISTORY: Headaches and neck pain for 15 years. TECHNIQUE: Multiplanar, multisequence imaging of the cervical spine is performed without IV contrast. COMPARISON: None. FINDINGS: Exam slightly suboptimal assess degraded by patient motion. Sagittal images of the cervical spine show the craniocervical junction to appear within normal limits. The cervical and upper thora cic spinal cord is normal in course, caliber, and signal. Slight grade 1 retrolisthesis C4 on C5. Th e vertebral body and intravertebral disk heights are normal. The bone marrow signal intensity is wit hin normal limits. Axial images show C2-C3 level to appear within normal limits. Axial images at C3-C4 level showing tiny right paracentral disc protrusion mildly facing anterior the janiya sac, patent bilateral neural foramina. Axial images at C4-C5 level show less prominent tiny central disc protrusion minimally effacing anter ior thecal sac on axial image 26, patent bilateral neural foramina. Axial images at C5-C6 level showed mild uncovertebral facet degenerative changes bilaterally causing mild right greater than left bilateral neural foraminal narrowing. Axial images at C6-C7 and C7-T1 levels are within normal limits. IMPRESSION: Mild multilevel degenerative changes in the cervical spine as detailed above.
== END | disposition home or self-care (01) ==
LOC: RADMRIMAIN 19:46
PROVIDERS: ATTEND Physician Assistant Medical
DX: M47.812 Spondylosis without myelopathy or radiculopathy, cervical region (principal)
CPT/HCPCS: 72141

== ENCOUNTER → 2021-05-07 | Outpatient (CLI) | payer OTHER ==
--- NOTE | 2021-05-07 13:04 | US ---
EXAMINATION TYPE: US venous doppler duplex LE DATE OF EXAM: 05/07/2021 12:50 PM COMPARISON: NONE CLINICAL HISTORY: [id number] VARICOSE VEINS OF OTHER SPECIFIED SITES. Patient states no pain or swelling SIDE PERFORMED: Bilateral TECHNIQUE: The lower extremity deep venous system is examined utilizing real time linear array sonog jerrica with graded compression, doppler sonography and color-flow sonography. VESSELS IMAGED: Common Femoral Vein Deep Femoral Vein Greater Saphenous Vein * Femoral Vein Popliteal Vein Small Saphenous Vein * Proximal Calf Veins (* superficial vessels) Right Leg: Appears negative for DVT Left Leg: Appears negative for DVT Grayscale, color doppler, spectral doppler imaging performed of the deep veins of the bilateral lower extremities. There is normal flow, compressibility, vascular waveforms. IMPRESSION: No ultrasound evidence for acute DVT in either lower extremity.
== END | disposition home or self-care (01) ==
LOC: RADUSWWP 11:30
PROVIDERS: ATTEND Family Medicine
DX: I86.8 Varicose veins of other specified sites (principal)
CPT/HCPCS: 93970

== ENCOUNTER → 2021-05-07 | Outpatient (CLI) | payer OTHER ==
--- NOTE | 2021-05-07 10:31 | MR ---
EXAMINATION TYPE: MR pelvis wo con DATE OF EXAM: 05/07/2021 COMPARISON: CT abdomen and pelvis May 22, 2014 and pelvic ultrasound August 08, 2014 HISTORY: LLQ pelvic pain Standard multiplanar, multisequence MRI departmental protocol Multiplanar, multisequence images of the pelvis were acquired without contrast. FINDINGS: There is anteverted uterus. There is a 10 mm round T2 hypointense lesion in the uterine fun dus superiorly consistent with small intramural fibroid extending near serosal surface sagittal image 14. Junctional zone appears within normal limits. No free fluid in pelvic cul-de-sac. Cervix has lob ulated contour with central T2 hyperintense prominent component. There is multicystic appearance and prominence on axial images. No definitive solid component on noncontrast MRI. Both ovaries are seen and normal in size. Right ovary is slightly more prominent. Scattered periphera l follicles bilaterally. There is 1.1 cm dominant round T2 hyperintense lesion right ovary axial imag e 20 favoring simple ovarian cyst or prominent follicle, inferior to this there is more irregular 1.5 x 1.1 cm thin-walled cyst or cystic lesion favoring corpus luteal cyst from lobulation axial image 1 4. Small amount of free fluid posterior to the right ovary is noted axial image 19. This is no suspicious bowel dilatation. Bladder poorly distended otherwise unremarkable. No concernin g pelvic adenopathy. Visualized osseous structures are intact. IMPRESSION: Prominent multicystic appearance of the cervix. Differential includes deep nabothian cys ts, florid endocervical hyperplasia, but neoplasm such as adenoma malignum needs to be excluded. Carlos elate clinically with physical exam and more recent ultrasound is advised.
== END | disposition home or self-care (01) ==
LOC: RADMRIMAIN 09:27
DX: R10.2 Pelvic and perineal pain (principal); R10.32 Left lower quadrant pain
CPT/HCPCS: 72195

== ENCOUNTER → 2021-06-02 | Outpatient (CLI) | payer OTHER ==
--- NOTE | 2021-06-10 12:16 | MM ---
Reason for exam: screening (asymptomatic). History: Patient is nulliparous. Family history of breast cancer in maternal grandmother at age 28 and breast cancer in paternal aunt. Took hormonal contraceptives for 5 years. Physical Findings: A clinical breast exam by your physician is recommended on an annual basis and results should be correlated with mammographic findings. MG Screening Mammo w CAD Bilateral CC and MLO view(s) were taken. No prior studies available for comparison. The breast tissue is heterogeneously dense. This may lower the sensitivity of mammography. Bilateral asymmetric densities for which spot compression views are recommended. Right upper outer quadrant nodule likely intramammary lymph node. Stability can be confirmed on a 6 months follow up. ASSESSMENT: Incomplete: need additional imaging evaluation, BI-RAD 0 RECOMMENDATION: Special view mammogram of both breasts. (3D) If lesion persists on supplemental views, image directed ultrasound is recommended. [facility] will attempt to contact patient to return for supplemental views and ultrasound if indicated.
== END | disposition home or self-care (01) ==
LOC: RADMAMWWP 09:30
DX: Z12.31 Encounter for screening mammogram for malignant neoplasm of breast (principal); Z80.3 Family history of malignant neoplasm of breast
CPT/HCPCS: 77067

== ENCOUNTER → 2021-06-14 | Outpatient (CLI) | payer OTHER ==
--- NOTE | 2021-06-14 15:03 | MM ---
Reason for exam: additional evaluation requested from abnormal screening. Last mammogram was performed less than 1 month ago. History: Patient is nulliparous. Family history of breast cancer in maternal grandmother at age 28 and breast cancer in paternal aunt. Took hormonal contraceptives for 5 years. Physical Findings: Nurse did not find any significant physical abnormalities on exam. MG Work Up Mamm w CAD BILAT Bilateral spot compression CC and ML view(s) were taken. CC with magnification and ML with magnification view(s) were taken of the left breast. Prior study comparison: June 02, 2021, bilateral MG screening mammo w CAD. The breast tissue is heterogeneously dense. This may lower the sensitivity of mammography. Subareolar asymmetric density resolves. Upper outer quadrant nodule probably intrammary node, 6 month follow up. Left areas of asymmetric density disperse. 2-3 o'clock microcalcifications are very faint on magnification views and punctate. 6 month follow up recommended. These results were verbally communicated with the patient and result sheet given to the patient on 06/14/21. ASSESSMENT: Probably benign, BI-RAD 3 RECOMMENDATION: Follow-up diagnostic mammogram of both breasts in 6 months. (right upper outer quadrant nodule, left 2-3 o'clock punctate calcifications)
== END | disposition home or self-care (01) ==
LOC: RADMAMWWP 08:12
DX: N63.21 Unspecified lump in the left breast, upper outer quadrant (principal); R92.0 Mammographic microcalcification found on diagnostic imaging of breast
CPT/HCPCS: 77066

== ENCOUNTER → 2021-11-29 | Outpatient (CLI) | payer OTHER ==
--- NOTE | 2021-11-29 11:08 | MM ---
Reason for exam: follow-up at short interval from prior study. Last mammogram was performed 6 months ago. History: Patient is nulliparous. Family history of breast cancer in maternal grandmother at age 28 and breast cancer in paternal aunt. Took hormonal contraceptives for 5 years. Physical Findings: A clinical breast exam by your physician is recommended on an annual basis and results should be correlated with mammographic findings. MG Diagnostic Mammo w CAD CARLOS Bilateral CC and MLO view(s) were taken. Prior study comparison: June 14, 2021, bilateral MG work up mamm w CAD BILAT. June 02, 2021, bilateral MG screening mammo w CAD. The breast tissue is heterogeneously dense. This may lower the sensitivity of mammography. There is chronic nodularity in the right upper outer quadrant, stable. There is no discrete abnormality. Results were given to the patient verbally at the time of the exam. ASSESSMENT: Benign, BI-RAD 2 RECOMMENDATION: Routine screening mammogram of both breasts in 1 year. Some advise bilateral ultrasound surveillance in patient with dense tissue.
== END | disposition home or self-care (01) ==
LOC: RADMAMWWP 10:24
DX: R92.8 Other abnormal and inconclusive findings on diagnostic imaging of breast (principal); Z80.3 Family history of malignant neoplasm of breast
CPT/HCPCS: 77066

== ENCOUNTER 2022-02-18 10:35 | Emergency (ER) | payer OTHER ==
[2022-02-18 11:17] VITALS: BP 90/63; PULSE 72; RESP 18; TEMP 98.4
--- NOTE | 2022-02-18 11:36 | ED ---
GI Bleed HPI - General Chief complaint: GI Bleed Stated complaint: GI Bleed Time Seen by Provider: 02/18/22 11:18 Source: patient Mode of arrival: ambulatory - History of Present Illness Initial comments: Patient is a 41-year-old female presenting with chief complaint of bright red blood per rectum. Patient states that she noticed some bleeding last night as well as pain near the rectum. Patient admits to pain when she sits. She was initially wearing a sanitary napkin before the bleeding was occurring last night. States that today it has mostly resolved and there is only been some spotting after a bowel movement. Patient has known history of hemorrhoids. Denies abdominal pain, dizziness, weakness, chest pain, shortness of breath, nausea, vomiting, diarrhea, constipation, melena, dysuria, hematuria, urgency, frequency. - Related Data Home Medications Medication Instructions Recorded Confirmed Cholecalciferol [Vitamin D3] 2,000 unit PO BID 02/01/17 09/29/20 Montelukast [Singulair] 10 mg PO DAILY 02/01/17 09/29/20 Omeprazole [PriLOSEC] 20 mg PO DAILY 02/01/17 09/29/20 Ega-Zuze-Ewfyu Acid 1 cap PO DAILY 02/01/17 09/29/20 [-U Capsule (formulary)] Amitriptyline HCl [Elavil] 20 mg PO HS 08/13/20 09/29/20 Fluticasone Nasal [place] [Flonase 2 spr EA NOSTRIL DAILY 08/13/20 09/29/20 Nasal [place]] Loratadine [Claritin] 10 mg PO DAILY 08/13/20 09/29/20 Pentosan Polysulfate Sodium 100 mg PO BID 08/13/20 09/29/20 [Elmiron] Allergies Allergy/AdvReac Type Severity Reaction Status Date / Time promethazine HCl AdvReac JITTERY Verified 02/18/22 11:17 [From Phenergan] Review of Systems ROS Statement: Those systems with pertinent positive or pertinent negative responses have been documented in the HPI. ROS Other: All systems not noted in ROS Statement are negative. Past Medical History Past Medical History: Hyperlipidemia Additional Past Medical History / Comment(s): Left sided head pain primarily from front to back, interstitial cystitis, current tx. for infertility. History of Any Multi-Drug Resistant Organisms: None Reported Past Surgical History: Appendectomy Additional Past Surgical History / Comment(s): Laproscopy, ovarian cysts removed, colonoscopy. PAIN CLINIC PROCEDURE Past Anesthesia/Blood Transfusion Reactions: No Reported Reaction Past Psychological History: Anxiety, Depression Smoking Status: Former smoker Past Alcohol Use History: None Reported Past Drug Use History: None Reported - Past Family History Mother Family Medical History: No Reported History General Exam Limitations: no limitations General appearance: alert, in no apparent distress Head exam: Present: atraumatic, normocephalic, normal inspection Eye exam: Present: normal appearance, EOMI. Absent: scleral icterus, periorbital swelling GI/Abdominal exam: Present: soft. Absent: distended, tenderness, guarding, rebound, rigid Rectal exam: Present: normal rectal tone, hemorrhoids Neurological exam: Present: alert, oriented X3, CN II-XII intact Psychiatric exam: Present: normal affect, normal mood Skin exam: Present: warm, dry, intact, normal color. Absent: rash Course Vital Signs 02/18/22 11:11 Temperature 98.4 F Pulse Rate 72 Respiratory 18 Rate Blood Pressure 90/63 O2 Sat by Pulse 96 Oximetry Medical Decision Making - Medical Decision Making Patient is a 41-year-old female presenting with chief complaint of bright red blood per rectum. Patient states that last night she was having bleeding from the rectum in pain when she sat down. She states that today the bleeding has improved but there is still significant pain with sitting. She has a history of hemorrhoids. On examination there is one visible hemorrhoid with very mild bleeding. Normal rectal tone, no melena. No abdominal pain. Patient is instructed on supportive treatment for hemorrhoids, including Anusol suppositories which she has at home, fiber, MiraLAX, sitz bath. Follow-up with PCP in one to 2 days. Report back to ER with any new or worsening symptoms. Discussed return parameters answered all questions. Patient conveyed verbal understanding and agreed to the plan. I discussed this case with my attending Dr. Britton Disposition Clinical Impression: Hemorrhoid Disposition: HOME SELF-CARE Condition: Good Instructions (If sedation given, give patient instructions): Hemorrhoids (ED) Additional Instructions: Follow-up with PCP in one to 2 days. Report back to ER with any new or worsening symptoms. Utilize suppositories, Preparation H cream, [id number] fiber supplements such as Metamucil, MiraLAX, sits baths as needed. Reducing the hemorrhoid back into the rectum may help with pain. Avoid sitting for long periods of time on the toilet. Follow-up with surgery for hemorrhoid removal. Is patient prescribed a controlled substance at d/c from ED?: No Referrals: [facility],Clinic [Primary Care Provider] - 1-2 days Henna Fisher MD [STAFF PHYSICIAN] - 1-2 days Time of Disposition: 11:36
== END 2022-02-18 11:47 | disposition home or self-care (01) ==
LOC: EC 10:35
DX: K64.9 Unspecified hemorrhoids (principal); E78.5 Hyperlipidemia, unspecified; Z87.891 Personal history of nicotine dependence; Z88.8 Allergy status to other drugs, medicaments and biological substances
CPT/HCPCS: 99284

== ENCOUNTER 2022-08-10 11:01 | Emergency (ER) | payer OTHER ==
[2022-08-10 11:06] VITALS: TEMP 98.8
[2022-08-10] MEDS ORDERED: SODIUM CHLORIDE 0.9% 1,000 ML IV STA ×2 (11:16→13:49)
[2022-08-10] MEDS ORDERED: ONDANSETRON 4 MG/2 ML VIAL IVP STA (11:16)
[2022-08-10] MEDS ORDERED: HYDROmorphone 0.5 MG/0.5 ML SYRINGE IVP STA (11:23)
[2022-08-10] MEDS ORDERED: fentaNYL (PF) 50 MCG/ML 2 ML AMP IVP STA ×2 (12:08→14:55)
[2022-08-10 12:10] LABS: Basophils # (A) 0.1 k/uL (0-0.2); Basophils % (A) 1 %; Eosinophils # (A) 0.1 k/uL (0-0.7); Eosinophils % (A) 1 %; HCT 35.5 % (34.0-46.0); HGB 11.8 gm/dL (11.4-16.0); Lymphocytes # (A) 1.3 k/uL (1.0-4.8); Lymphocytes % (A) 11 %; MCH 28.5 pg (25.0-35.0); MCHC 33.3 g/dL (31.0-37.0); MCV 85.8 fL (80.0-100.0); Mean Platelet Volume 7.3; Monocytes # (A) 0.5 k/uL (0-1.0); Monocytes % (A) 4 %; Neutrophils # (A) 9.5 k/uL (1.3-7.7); Neutrophils % (A) 82 %; Platelet Count 455 k/uL (150-450); RBC 4.14 m/uL (3.80-5.40); RDW 14.2 % (11.5-15.5); WBC 11.6 k/uL (3.8-10.6)
[2022-08-10 12:23] LABS: ALT 18 U/L (4-34); AST 21 U/L (14-36); African American GFR (CKD) >90 (>60 ml/min/1.73 sqM); Albumin 4.1 g/dL (3.5-5.0); Alkaline Phosphatase 103 U/L (38-126); Anion Gap 12 mmol/L; Blood Urea Nitrogen 11 mg/dL (7-17); Calcium 8.8 mg/dL (8.4-10.2); Carbon Dioxide 21 mmol/L (22-30); Chloride 104 mmol/L (98-107); Glucose 88 mg/dL (74-99); Lipase 284 U/L (23-300); Non-African American GFR(CKD) >90 (>60 ml/min/1.73 sqM); Potassium 3.9 mmol/L (3.5-5.1); Sodium 137 mmol/L (137-145); Total Bilirubin 0.5 mg/dL (0.2-1.3); Total Protein 7.2 g/dL (6.3-8.2)
--- NOTE | 2022-08-10 13:36 | CT ---
EXAMINATION TYPE: CT abdomen pelvis w con DATE OF EXAM: 08/10/2022 COMPARISON: 05/22/2014 HISTORY: 41-year-old female pain/vomiting s/p gastric sleeve 08/02 TECHNIQUE: Contiguous axial scanning of the abdomen and pelvis following administration of 100 ml Iso vinicius 300 IV contrast. Delayed images through the kidneys and coronal/sagittal reconstructions perform ed. CT DLP: 1385.7 mGycm Automated exposure control for dose reduction was used. FINDINGS: Heart normal size without pericardial effusion. Some mild dependent hazy atelectasis in the lower lungs without pleural effusion. No focal liver lesion. Portal venous system is patent. No biliary ductal dilatation. Gallbladder, adrenal glands, kidneys, spleen, and pancreas within normal limits. There are postsurgical changes of sleeve gastrectomy. Some mild omental fat stranding along the anter ior left upper quadrant. No abnormal fluid collection is seen. No dilated small bowel, free fluid, or free air. Laparoscopy ports along the paramedian infraumbilical regions. Appears to be some mild fat stranding along the left-sided port and mild thickening here. Correlate to exclude any infection at the site. No mesenteric or retroperitoneal lymphadenopathy. Circumaortic left renal vein. Surgical material at the cecum suggesting prior appendectomy. Scattered mild stool. No some nonspecific vague 8 mm density left paracolic gutter, likely some mild inflammatory change tr acking from the left upper quadrant. Bladder partially distended. Uterus anteverted. Both ovaries are visualized. There is a 1.3 cm domina nt follicle or functional cyst right ovary. Left-sided pelvic phlebolith. No abnormal fluid collectio n in the pelvis or pelvic lymphadenopathy. Bones: Mild degenerative change of the hips. No osseous destructive process. IMPRESSION: 1. STATUS POST HYSTERECTOMY. THERE IS SOME OMENTAL FAT STRANDING IN THE ADJACENT LEFT UPPER QUADRANT THAT COULD REFLECT SOME RESIDUAL MILD POSTOPERATIVE INFLAMMATION. NO ABNORMAL FLUID COLLECTION. 2. CHANGES RELATING TO LAPAROSCOPY PORTS ALONG THE PARAMEDIAN INFRAUMBILICAL REGION. THERE IS SOME FA T STRANDING AND MILD THICKENING ALONG THE LEFT-SIDED PORT SITE. CORRELATE TO EXCLUDE ANY CELLULITIS/I NFECTION AT THIS SITE.
[2022-08-10 14:04] LABS: Appearance,Urine Clear (Clear); Bilirubin,Urine Negative (Negative); Blood,Urine Negative (Negative); Color,Urine Yellow; Glucose,Urine (UA) Negative (Negative); Ketones,Urine 4+ (Negative); Leukocyte Esterase,Urine Negative (Negative); Nitrite,Urine Negative (Negative); PH, Urine 5.5 (5.0-8.0); Protein,Urine Trace (Negative); Urobilinogen,Urine <2.0 mg/dL (<2.0)
[2022-08-10 14:08] LABS: Specific Gravity,Urine >1.050 (1.001-1.035)
[2022-08-10] MEDS ORDERED: CEPHALEXIN 250 MG CAP PO STA (14:59)
[2022-08-10] MEDS ORDERED: CEPHALEXIN 500 MG CAP PO STA (14:59)
--- NOTE | 2022-08-10 15:04 | ED ---
General Adult HPI - General Chief complaint: Nausea/Vomiting/Diarrhea Stated complaint: post op-abd pain & vomiting Time Seen by Provider: 08/10/22 11:16 Source: patient Mode of arrival: ambulatory Limitations: no limitations - History of Present Illness Initial comments: Patient is a 41-year-old female presenting with abdominal pain and vomiting s/p gastric sleeve on Aug 02, 2022. Surgeon Dr. Park at [facility]. Patient states surgery was complicated by internal bleeding and they had to perform another procedure to fix it They also gave her a unit of blood. States she has had pain since the surgery and was only told to take Tylenol. Pain not improving, mostly in her left upper abdomen. She has been nauseous since the surgery with 2 episodes of vomiting today nonbloody. Patient reports normal size bowel movements however has had difficulty going and reports hard stools, nonbloody. She denies fever, chills. Patient on clear liquid diet. She does not have any SIMBA drains anymore but did have a left-sided drain in the hospital. - Related Data Home Medications Medication Instructions Recorded Confirmed Montelukast [Singulair] 10 mg PO HS 02/01/17 08/10/22 Omeprazole [PriLOSEC] 20 mg PO DAILY 02/01/17 08/10/22 Amitriptyline HCl [Elavil] 20 mg PO HS 08/13/20 08/10/22 Fluticasone Nasal [place] [Flonase 1 spr EA NOSTRIL BID 08/13/20 08/10/22 Nasal [place]] Loratadine [Claritin] 10 mg PO DAILY 08/13/20 08/10/22 Pentosan Polysulfate Sodium 100 mg PO TID 08/13/20 08/10/22 [Elmiron] Atorvastatin [Lipitor] 80 mg PO HS 08/10/22 08/10/22 Docusate [Colace] 100 mg PO BID 08/10/22 08/10/22 Propranolol LA [Inderal LA] 60 mg PO DAILY 08/10/22 08/10/22 Rimegepant Sulfate [Nurtec Odt] 75 mg PO DAILY PRN 08/10/22 08/10/22 Rivaroxaban [Xarelto] 2.5 mg PO BID 08/10/22 08/10/22 norgestimate-ethinyl estradioL 1 tab PO DAILY 08/10/22 08/10/22 [Ortho Tri-Cyclen 28 Tablet] Previous Rx's Medication Instructions Recorded Cephalexin [Keflex] 500 mg PO Q6HR 5 Days #20 cap 08/10/22 Docusate [Colace] 100 mg PO BID #10 capsule 08/10/22 HYDROcodone/APAP 7.5-325MG [[place] 1 tab PO Q4HR PRN #18 tab 08/10/22 7.5-325] Ondansetron Odt [Zofran Odt] 4 mg PO Q8HR PRN #12 tab 08/10/22 Allergies Allergy/AdvReac Type Severity Reaction Status Date / Time niacin AdvReac flushing Verified 08/10/22 14:19 promethazine HCl AdvReac tremor/anxi Verified 08/10/22 14:19 [From Phenergan] ety topiramate [From Topamax] AdvReac See Verified 08/10/22 14:19 comment - tremor/anxiety Review of Systems ROS Statement: Those systems with pertinent positive or pertinent negative responses have been documented in the HPI. ROS Other: All systems not noted in ROS Statement are negative. Past Medical History Past Medical History: Hyperlipidemia Additional Past Medical History / Comment(s): Left sided head pain primarily from front to back, interstitial cystitis, current tx. for infertility. History of Any Multi-Drug Resistant Organisms: None Reported Past Surgical History: Appendectomy, Bariatric Surgery Additional Past Surgical History / Comment(s): Laproscopy, ovarian cysts rem lottie, colonoscopy. PAIN CLINIC PROCEDURE Past Anesthesia/Blood Transfusion Reactions: No Reported Reaction Past Psychological History: Anxiety, Depression Smoking Status: Former smoker Past Alcohol Use History: None Reported Past Drug Use History: None Reported - Past Family History Mother Family Medical History: No Reported History General Exam Limitations: no limitations General appearance: alert Head exam: Present: atraumatic, normocephalic, normal inspection Eye exam: Present: normal appearance, PERRL, EOMI. Absent: scleral icterus, conjunctival injection, periorbital swelling Respiratory exam: Present: normal lung sounds bilaterally. Absent: respiratory distress, wheezes, rales, rhonchi, stridor Cardiovascular Exam: Present: regular rate, normal rhythm, normal heart sounds. Absent: systolic murmur, diastolic murmur, rubs, gallop, clicks GI/Abdominal exam: Present: soft, tenderness (moderate LUQ and to a lesser extent, LLQ. Incisions healing nicely, no surrounding erythema, swelling, drainage ), normal bowel sounds. Absent: distended, guarding, rebound, rigid Extremities exam: Present: normal inspection Neurological exam: Present: alert, oriented X3, CN II-XII intact Psychiatric exam: Present: normal affect, normal mood Skin exam: Present: warm, dry, intact, normal color. Absent: rash Course Vital Signs 08/10/22 08/10/22 08/10/22 11:02 12:04 12:31 Temperature 98.8 F Pulse Rate 99 92 90 Respiratory 22 22 20 Rate Blood Pressure 114/78 89/61 93/56 O2 Sat by Pulse 100 97 98 Oximetry 08/10/22 08/10/22 08/10/22 12:55 13:00 14:00 Temperature Pulse Rate 95 90 90 Respiratory 20 16 20 Rate Blood Pressure 95/60 100/60 98/56 O2 Sat by Pulse 98 98 98 Oximetry 08/10/22 08/10/22 15:00 15:43 Temperature Pulse Rate 85 86 Respiratory 16 16 Rate Blood Pressure 100/58 100/60 O2 Sat by Pulse 98 98 Oximetry Medical Decision Making - Medical Decision Making Was pt. sent in by a medical professional or institution ([facility], [facility], urgent care, hospital, or detention...) When possible be specific @ -[No] Did you speak to anyone other than the patient for history (EMS, parent, family, police, friend...)? What history was obtained from this source @ -[No] Did you review nursing and triage notes (agree or disagree)? Why? @ -[I reviewed and agree with nursing and triage notes] Were old charts reviewed (outside hosp., previous admission, EMS record, old EKG, old radiological studies, urgent care reports/EKG's, detention records)? Report findings @ -[No old charts were reviewed] Differential Diagnosis (chest pain, altered mental status, abdominal pain women, abdominal pain men, vaginal bleeding, weakness, fever, dyspnea, syncope, headache, dizziness, GI bleed, back pain, seizure, CVA, palpatations, mental health)? @ -Differential Abdominal Pain Women: Appendicitis, Cholecystitis, diverticulosis, ischemic bowel, pancreatitis, hepatitis, UTI, gastroenteritis, AAA, incarcerated hernia, bowel obstruction, constipation, inflammatory bowel, hepatitis, peptic ulcer disease, splenic infarction, perforated viscus, vulvitis, ovarian torsion, PID, kidney stone, placenta abruption, this is not meant to be an all-inclusive list EKG interpreted by me (3pts min.). @ -[As above] X-rays interpreted by me (1pt min.). @ -[None done] CT interpreted by me (1pt min.). @ -Yes, CT abdomen pelvis with contrast shows some omental fat stranding in the left upper quadrant that could reflect some residual mild postoperative inflammation. There is no abnormal fluid collection. There are changes relating to laparoscopic ports along the paramedian infraumbilical region. There is some stranding and mild thickening along the left-sided port site, correlates to exclude cellulitis and infection at the site U/S interpreted by me (1pt. min.). @ -[None done] What testing was considered but not performed or refused? (CT, X-rays, U/S, labs)? Why? @ -[None] What meds were considered but not given or refused? Why? @ -[None] Did you discuss the management of the patient with other professionals (zach saleem i.e. , PA, [facility], lab, RT, psych nurse, manager social media, [employer] police coxswain, teacher, patrol community service officer, housing case manager)? Give summary @ -[No] Was smoking cessation discussed for >3mins.? @ -[No] Was critical care preformed (if so, how long)? @ -[No] Were there social determinants of health that impacted care today? How? (Homelessness, low income, unemployed, alcoholism, drug addiction, transpor tation, low edu. Level, literacy, decrease access to med. care, mcc, rehab)? @ -[No] Was there de-escalation of care discussed even if they declined (Discuss DNR or withdrawal of care, Hospice)? DNR status @ -[No] What co-morbidities impacted this encounter? (DM, HTN, Smoking, COPD, CAD, Cancer, CVA, ARF, Chemo, Hep., AIDS, mental health diagnosis, sleep apnea, morbid obesity)? @ -[None] Was patient admitted / discharged? Hospital course, mention meds given and route, prescriptions, significant lab abnormalities, going to OR and other pertinent info. @ -This is a 41-year-old female presenting with abdominal pain and vomiting status post gastric sleeve 10 days ago. Patient does appear to be in pain. Afebrile. Blood pressure on the lower end, 100/60. No tachycardia. Laboratory studies obtained. There is mild leukocytosis at 11.6. CT abdomen and pelvis with contrast shows some omental fat stranding in the left upper quadrant that could reflect some mild postoperative inflammation. There is no abnormal fluid collection. There are some changes near the left port incision which could reflect cellulitis. There is no obvious cellulitis on physical exam however patient does report possible drainage from the incision site a few days ago. Pain and nausea controlled. Patient given large fluid bolus with improvement of blood pressure. Remained stable during ED visit. I did speak to CORNELIUS García who works with patient's surgeon. We discussed the case in detail and she agrees with my plan. Patient will be discharged with short course of [place] for severe pain and Zofran for nausea. She will also be sent home with Keflex for possible cellulitis. Patient has follow-up appointment on Monday. Strict return parameters discussed. Undiagnosed new problem with uncertain prognosis? @ -[No] Drug Therapy requiring intensive monitoring for toxicity (Heparin, Nitro, Insulin, Cardizem)? @ -[No] Were any procedures done? @ -[No] Diagnosis/symptom? @ -cellulitis Acute, or Chronic, or Acute on Chronic? @ -acute Uncomplicated (without systemic symptoms) or Complicated (systemic symptoms)? @ -uncomplicated Side effects of treatment? @ -[No] Exacerbation, Progression, or Severe Exacerbation? @ -[No] Poses a threat to life or bodily function? How? (Chest pain, USA, VT, pneumonia, PE, COPD, DKA, ARF, appy, cholecystitis, CVA, Diverticulitis, Homicidal, Suicidal, threat to staff... and all critical care pts) @ -[No] Dr. Harrison is my attending, - Lab Data Result diagrams: 08/10/22 11:33 08/10/22 11:33 Lab Results 08/10/22 08/10/22 08/10/22 Range/Units 11:33 11:33 11:33 WBC 11.6 H (3.8-10.6) k/uL RBC 4.14 (3.80-5.40) m/uL Hgb 11.8 (11.4-16.0) gm/dL Hct 35.5 (34.0-46.0) % MCV 85.8 (80.0-100.0) fL MCH 28.5 (25.0-35.0) pg MCHC 33.3 (31.0-37.0) g/dL RDW 14.2 (11.5-15.5) % Plt Count 455 H (150-450) k/uL MPV 7.3 Neutrophils % 82 % Lymphocytes % 11 % Monocytes % 4 % Eosinophils % 1 % Basophils % 1 % Neutrophils # 9.5 H (1.3-7.7) k/uL Lymphocytes # 1.3 (1.0-4.8) k/uL Monocytes # 0.5 (0-1.0) k/uL Eosinophils # 0.1 (0-0.7) k/uL Basophils # 0.1 (0-0.2) k/uL Sodium 137 (137-145) mmol/L Potassium 3.9 (3.5-5.1) mmol/L Chloride 104 (98-107) mmol/L Carbon Dioxide 21 L (22-30) mmol/L Anion Gap 12 mmol/L BUN 11 (7-17) mg/dL Creatinine 0.79 (0.52-1.04) mg/dL Est GFR (CKD-EPI)AfAm >90 (>60 ml/min/1.73 sqM) Est GFR (CKD-EPI)NonAf >90 (>60 ml/min/1.73 sqM) Glucose 88 (74-99) mg/dL Plasma Lactic Acid [place] (0.7-2.0) mmol/L Calcium 8.8 (8.4-10.2) mg/dL Total Bilirubin 0.5 (0.2-1.3) mg/dL AST 21 (14-36) U/L ALT 18 (4-34) U/L Alkaline Phosphatase 103 (38-126) U/L Total Protein 7.2 (6.3-8.2) g/dL Albumin 4.1 (3.5-5.0) g/dL Lipase 284 (23-300) U/L Urine Color Yellow Urine Appearance Clear (Clear) Urine pH 5.5 (5.0-8.0) Ur Specific [place] >1.050 H (1.001-1.035) Urine Protein Trace H (Negative) Urine Glucose (UA) Negative (Negative) Urine Ketones 4+ H (Negative) Urine Blood Negative (Negative) Urine Nitrite Negative (Negative) Urine Bilirubin Negative (Negative) Urine Urobilinogen <2.0 (<2.0) mg/dL Ur Leukocyte Esterase Negative (Negative) 08/10/22 Range/Units 11:33 WBC (3.8-10.6) k/uL RBC (3.80-5.40) m/uL Hgb (11.4-16.0) gm/dL Hct (34.0-46.0) % MCV (80.0-100.0) fL MCH (25.0-35.0) pg MCHC (31.0-37.0) g/dL RDW (11.5-15.5) % Plt Count (150-450) k/uL MPV Neutrophils % % Lymphocytes % % Monocytes % % Eosinophils % % Basophils % % Neutrophils # (1.3-7.7) k/uL Lymphocytes # (1.0-4.8) k/uL Monocytes # (0-1.0) k/uL Eosinophils # (0-0.7) k/uL Basophils # (0-0.2) k/uL Sodium (137-145) mmol/L Potassium (3.5-5.1) mmol/L Chloride (98-107) mmol/L Carbon Dioxide (22-30) mmol/L Anion Gap mmol/L BUN (7-17) mg/dL Creatinine (0.52-1.04) mg/dL Est GFR (CKD-EPI)AfAm (>60 ml/min/1.73 sqM) Est GFR (CKD-EPI)NonAf (>60 ml/min/1.73 sqM) Glucose (74-99) mg/dL Plasma Lactic Acid [place] 0.7 (0.7-2.0) mmol/L Calcium (8.4-10.2) mg/dL Total Bilirubin (0.2-1.3) mg/dL AST (14-36) U/L ALT (4-34) U/L Alkaline Phosphatase (38-126) U/L Total Protein (6.3-8.2) g/dL Albumin (3.5-5.0) g/dL Lipase (23-300) U/L Urine Color Urine Appearance (Clear) Urine pH (5.0-8.0) Ur Specific [place] (1.001-1.035) Urine Protein (Negative) Urine Glucose (UA) (Negative) Urine Ketones (Negative) Urine Blood (Negative) Urine Nitrite (Negative) Urine Bilirubin (Negative) Urine Urobilinogen (<2.0) mg/dL Ur Leukocyte Esterase (Negative) Disposition Clinical Impression: Post-op pain, Cellulitis Disposition: HOME SELF-CARE Condition: Fair Instructions (If sedation given, give patient instructions): Abdominal Pain (ED), Nutrition after Bariatric Surgery (DC) Additional Instructions: Take medication as directed. Please increase fluid intake as tolerated. Follow up on Monday with your surgeon as planned. Return to the emergency department if you experience new, concerning, or worsening symptoms. Prescriptions: Docusate [Colace] 100 mg PO BID #10 capsule Cephalexin [Keflex] 500 mg PO Q6HR 5 Days #20 cap HYDROcodone/APAP 7.5-325MG [[place] 7.5-325] 1 tab PO Q4HR PRN #18 tab PRN Reason: Pain Ondansetron Odt [Zofran Odt] 4 mg PO Q8HR PRN #12 tab PRN Reason: Nausea Is patient prescribed a controlled substance at d/c from ED?: No Referrals: [facility],Clinic [Primary Care Provider] - 1-2 days
[2022-08-10 15:33] VITALS: RESP 16
[2022-08-10 15:45] VITALS: BP 100/60; PULSE 86
== END 2022-08-10 15:49 | disposition home or self-care (01) ==
LOC: EC 11:01
DX: G89.18 Other acute postprocedural pain (principal); L03.90 Cellulitis, unspecified; E78.5 Hyperlipidemia, unspecified; F41.9 Anxiety disorder, unspecified; F32.A Depression, unspecified; Z87.891 Personal history of nicotine dependence; Z88.3 Allergy status to other anti-infective agents; Z88.8 Allergy status to other drugs, medicaments and biological substances; Z79.899 Other long term (current) drug therapy
CPT/HCPCS: 36415; 80053; 83605; 83690; 85025; 81003; 87040; 74177; 99284; 96374; 96375; 96376; 96361 ×2; J2405; J3010; Q9967

== ENCOUNTER 2022-11-21 09:07 | Day surgery (SDC) | payer OTHER ==
--- NOTE | 2022-11-21 08:13 | P.GSHP ---
History of Present Illness H&P Date: 11/21/22 CHIEF COMPLAINT: GERD and colon screen HISTORY OF PRESENT ILLNESS: The patient is a 42-year-old female who presents with gastroesophageal reflux disease and need for colon screen. Upper and lower endoscopy were offered for further evaluation and management. PAST MEDICAL HISTORY: Please see list. PAST SURGICAL HISTORY: Please see list. MEDICATIONS: Please see list. ALLERGIES: Please see list. SOCIAL HISTORY: No illicit drug use FAMILY HISTORY: No reports of Crohn disease or ulcerative colitis. REVIEW OF ORGAN SYSTEMS: CONSTITUTIONAL: No reports of fevers or chills. GI: Denies any blood in stools or constipation. PHYSICAL EXAM: VITAL SIGNS: Stable GENERAL: Well-developed pleasant in no acute distress. HEENT: No scleral icterus. Extraocular movements grossly intact. Moist buccal mucosa. NECK: Supple without lymphadenopathy. CHEST: Unlabored respirations. Equal bilateral excursions. CARDIOVASCULAR: Regular rate and rhythm. Distal 2+ pulses. ABDOMEN: Soft, nondistended. MUSCULOSKELETAL: No clubbing, cyanosis, or edema. ASSESSMENT: 1. Gastroesophageal reflux disease 2. Colon screen. PLAN: 1. Recommend proceeding with an upper and lower endoscopy Past Medical History Past Medical History: Hyperlipidemia Additional Past Medical History / Comment(s): Left sided head pain primarily from front to back, interstitial cystitis, current tx. for infertility. History of Any Multi-Drug Resistant Organisms: None Reported Past Surgical History: Appendectomy, Bariatric Surgery Additional Past Surgical History / Comment(s): Laproscopy, ovarian cysts removed, colonoscopy. PAIN CLINIC PROCEDURE Past Anesthesia/Blood Transfusion Reactions: No Reported Reaction Past Psychological History: Anxiety, Depression Smoking Status: Former smoker Past Alcohol Use History: None Reported Past Drug Use History: None Reported - Past Family History Mother Family Medical History: No Reported History Medications and Allergies Home Medications Medication Instructions Recorded Confirmed Type Montelukast [Singulair] 10 mg PO HS 02/01/17 08/10/22 History Omeprazole [PriLOSEC] 20 mg PO DAILY 02/01/17 08/10/22 History Amitriptyline HCl [Elavil] 20 mg PO HS 08/13/20 08/10/22 History Fluticasone Nasal [place] [Flonase 1 spr EA NOSTRIL BID 08/13/20 08/10/22 History Nasal [place]] Loratadine [Claritin] 10 mg PO DAILY 08/13/20 08/10/22 History Pentosan Polysulfate Sodium 100 mg PO TID 08/13/20 08/10/22 History [Elmiron] Atorvastatin [Lipitor] 80 mg PO HS 08/10/22 08/10/22 History Cephalexin [Keflex] 500 mg PO Q6HR 5 Days #20 cap 08/10/22 Rx Docusate [Colace] 100 mg PO BID 08/10/22 08/10/22 History Docusate [Colace] 100 mg PO BID #10 capsule 08/10/22 Rx HYDROcodone/APAP 7.5-325MG [[place] 1 tab PO Q4HR PRN #18 tab 08/10/22 Rx 7.5-325] Ondansetron Odt [Zofran Odt] 4 mg PO Q8HR PRN #12 tab 08/10/22 Rx Propranolol LA [Inderal LA] 60 mg PO DAILY 08/10/22 08/10/22 History Rimegepant Sulfate [Nurtec Odt] 75 mg PO DAILY PRN 08/10/22 08/10/22 History Rivaroxaban [Xarelto] 2.5 mg PO BID 08/10/22 08/10/22 History norgestimate-ethinyl estradioL 1 tab PO DAILY 08/10/22 08/10/22 History [Ortho Tri-Cyclen 28 Tablet] Allergies Allergy/AdvReac Type Severity Reaction Status Date / Time niacin AdvReac flushing Verified 09/01/22 18:25 promethazine HCl AdvReac tremor/anxi Verified 09/01/22 18:25 [From Phenergan] ety topiramate [From Topamax] AdvReac See Verified 09/01/22 18:25 comment - tremor/anxiety
[2022-11-21] MEDS ORDERED: LACTATED RINGERS 1,000 ML IV ONE ×2 (10:04)
[2022-11-21 10:06] VITALS: RESP 16; TEMP 97.8
[2022-11-21] MEDS ORDERED: PROPOFOL 10 MG/ML 20 ML VIAL IV ONE (10:26)
[2022-11-21] MEDS ORDERED: LIDOCAINE 2% INJ 20 MG/ML (2 ML VIAL) ONE (10:26)
[2022-11-21 11:28] VITALS: BP 103/69; PULSE 64
--- NOTE | 2022-11-21 11:29 | P.PCN ---
Date of Procedure: 11/21/22 Description of Procedure: PREOPERATIVE DIAGNOSIS: GI bleed Status post sleeve gastrectomy. Gastroesophageal reflux disease. Epigastric abdominal pain. POSTOPERATIVE DIAGNOSIS: Acute gastritis with intermittent bleeding Gastroesophageal reflux disease. Erosive esophagitis, chronic. Diaphragmatic hiatal hernia without obstruction. Duodenitis OPERATION: Esophagogastroduodenoscopy with cold forceps biopsies along the antrum and duodenal SURGEON: Henna Fisher MD ANESTHESIA: MAC. INDICATIONS: The patient is a 42-year-old female who presents with a history of sleeve gastrectomy with abdominal pain and GI bleed. Benefits and risks of the procedure were described. Informed consent was obtained. DESCRIPTION: The patient was brought into the endoscopy suite and laid in the left lateral decubitus position. An Olympus gastroscope was passed along the posterior oropharynx down to the distal esophagus where the squamocolumnar junction was at 35 centimeters from the incisors remarkable for chronic erosive esophagitis, LA grade A without ulceration. The stomach was entered where she had a 3-cm hiatal hernia with a diaphragmatic hiatus found at 38 cm. The sleeve reservoir moderately large allowing easy retroflexion of the scope to view the lower esophageal valve. Chronic gastritis albeit mild was found along the antrum with cold biopsies obtained. The first through third portion of the duodenum was examined and unremarkable. The scope again had easily retroflexed along the antrum. The stomach was desufflated. The patient tolerated the procedure well. FINDINGS: Acute gastritis with bleeding found along slowly [place] sleeve gastrectomy. Squamocolumnar junction at 35 cm from the incisors. Diaphragmatic hiatus at 38 cm. Moderate large gastric reservoir with prior history of sleeve gastrectomy allowing easy retroflexion of the gastroscope to view the lower esophageal valve . Hiatal hernia 3 cm LA grade A erosive esophagitis. Duodenitis and biopsies obtained RECOMMENDATIONS: Upper endoscopy as needed. Increase omeprazole from 20 mg to 40 mg daily
--- NOTE | 2022-11-21 11:30 | P.PCN ---
Date of Procedure: 11/21/22 Description of Procedure: PREOPERATIVE DIAGNOSIS: GI bleed POSTOPERATIVE DIAGNOSIS: History of GI bleed OPERATION: Colonoscopy to the cecum, ileocecal valve and appendiceal orifice. SURGEON: Henna Fisher MD. ANESTHESIA: MAC. INDICATIONS: The patient is a 42-year-old female who presents with rectal bleeding, GI bleed. Benefits and risks were described and informed consent was obtained. DESCRIPTION OF PROCEDURE: The patient had undergone Sutab prep. The patient had been brought into the operating room and laid in the left lateral decubitus position. After adequate intravenous sedation, the rectum was examined with 2% lidocaine jelly. No external hemorrhoids were encountered. The rectal tone was within normal limits. No lesions were palpated in the rectal vault. An Olympus colonoscope was advanced until the cecum, ileocecal valve and appendiceal orifice were clearly viewed. The prep was excellent. No scattered diverticulosis was encountered. No colonic polyps were found. No evidence of focal colitis was found. Retroflexion of the scope demonstrated grade 1 internal hemorrhoids without active bleeding or inflammation. The colon was desufflated. The patient had tolerated the procedure well. Withdrawal time was over 6 minutes. FINDINGS: Aronchick preparation quality scale 1 (1-5) Internal hemorrhoids, grade 1 No external prolapsed hemorrhoids. No arteriovenous malformations. No adenomatous polyps. No focal colitis. RECOMMENDATIONS: Lower endoscopy in 10 years, 2032 Plan - Discharge Summary New Discharge Prescriptions: New Omeprazole [PriLOSEC] 40 mg PO DAILY #14 cap Continue Montelukast [Singulair] 10 mg PO HS Fluticasone Nasal [place] [Flonase Nasal [place]] 1 spr EA NOSTRIL BID Loratadine [Claritin] 10 mg PO DAILY Amitriptyline HCl [Elavil] 20 mg PO HS Pentosan Polysulfate Sodium [Elmiron] 100 mg PO TID norgestimate-ethinyl estradioL [Ortho Tri-Cyclen 28 Tablet] 1 tab PO DAILY Propranolol LA [Inderal LA] 60 mg PO DAILY Atorvastatin [Lipitor] 80 mg PO HS Rimegepant Sulfate [Nurtec Odt] 75 mg PO DAILY PRN PRN Reason: Migraine Headache Discontinued Omeprazole [PriLOSEC] 20 mg PO DAILY Discharge Medication List Montelukast [Singulair] 10 mg PO HS 02/01/17 [History] Amitriptyline HCl [Elavil] 20 mg PO HS 08/13/20 [History] Fluticasone Nasal [place] [Flonase Nasal [place]] 1 spr EA NOSTRIL BID 08/13/20 [His tory] Loratadine [Claritin] 10 mg PO DAILY 08/13/20 [History] Pentosan Polysulfate Sodium [Elmiron] 100 mg PO TID 08/13/20 [History] Atorvastatin [Lipitor] 80 mg PO HS 08/10/22 [History] Propranolol LA [Inderal LA] 60 mg PO DAILY 08/10/22 [History] Rimegepant Sulfate [Nurtec Odt] 75 mg PO DAILY PRN 08/10/22 [History] norgestimate-ethinyl estradioL [Ortho Tri-Cyclen 28 Tablet] 1 tab PO DAILY 08/10/22 [History] Omeprazole [PriLOSEC] 40 mg PO DAILY #14 cap 11/21/22 [Rx] Follow up Appointment(s)/Referral(s): Henna Fisher MD [STAFF PHYSICIAN] - 12/06/22 9:30 am Patient Instructions/Handouts: *Surgery [facility] - (Anesthesia) Discharge Instructions Outpatient Surgery, Gastritis (DC) Discharge Disposition: HOME SELF-CARE
== END 2022-11-21 11:49 | disposition home or self-care (01) ==
LOC: ORWHC2ENDO 09:07
PROVIDERS: ATTEND Surgery Plastic and Reconstructive Surgery
DX: K29.50 Unspecified chronic gastritis without bleeding (principal); K64.0 First degree hemorrhoids; K21.9 Gastro-esophageal reflux disease without esophagitis; K22.10 Ulcer of esophagus without bleeding; K44.9 Diaphragmatic hernia without obstruction or gangrene; F41.9 Anxiety disorder, unspecified; F32.A Depression, unspecified; E78.5 Hyperlipidemia, unspecified; Z98.84 Bariatric surgery status; Z90.49 Acquired absence of other specified parts of digestive tract; Z98.890 Other specified postprocedural states; Z87.891 Personal history of nicotine dependence; Z79.01 Long term (current) use of anticoagulants; Z88.8 Allergy status to other drugs, medicaments and biological substances; Z79.899 Other long term (current) drug therapy
CPT/HCPCS: 81025; 88305; 45378; 43239; J2704; J2001

== ENCOUNTER → 2022-12-26 | Outpatient (CLI) | payer OTHER ==
--- NOTE | 2022-12-27 19:51 | MM ---
Reason for Exam: Screening (asymptomatic). Last mammogram was performed 1 year(s) and 1 month(s) ago. Patient History: Menarche at age 10. Patient has no children. Currently using Hormonal Contraceptives, for 5 years. Maternal grandmother had breast cancer, age 28. Paternal aunt had breast cancer. Last menstrual period: 12/14/2022 Risk Values: Deya 5 year model risk: 0.7%. NCI Lifetime model risk: 12.0%. Prior Study Comparison: 06/02/2021 Bilateral Screening Mammogram, [facility]. 06/14/2021 Bilateral Diagnostic Mammogram, [facility]. 11/29/2021 Bilateral Diagnostic Mammogram, [facility]. Tissue Density: The breast tissue is heterogeneously dense. This may lower the sensitivity of mammography. Findings: Analyzed By CAD. Chronic nodularity upper outer quadrant right breast. There is no suspicious group of microcalcifications or new suspicious mass in either breast. Overall Assessment: Benign, BI-RAD 2 Management: Screening Mammogram of both breasts in 1 year. . Patient should continue monthly self-breast exams. A clinical breast exam by your physician is recommended on an annual basis. This exam should not preclude additional follow-up of suspicious palpable abnormalities. Note on Deya scores and lifetime risk: 1. A Deya score greater than 3% is considered moderate risk. If this is the case, consider specialist referral to assess eligibility for a risk reducing agent. 2. If overall lifetime risk for the development of breast cancer is 20% or higher, the patient may qualify for future screening with alternating mammogram and breast MRI. Electronically signed and approved by: Puneet Gonzales M.D. Radiologist
== END | disposition home or self-care (01) ==
LOC: RADMAMWWP 07:32
DX: Z12.31 Encounter for screening mammogram for malignant neoplasm of breast (principal); Z80.3 Family history of malignant neoplasm of breast
CPT/HCPCS: 77063; 77067

== ENCOUNTER → 2023-03-20 | Outpatient (CLI) | payer OTHER ==
[2023-03-20 15:44] LABS: HCT 45.5 % (37.2-46.3); MCH 29.3 pg (27.0-32.0); MCV 88.9 FL (80.0-97.0); Mean Platelet Volume 10.4 FL (9.5-12.2); NRBC Per 100 WBC 0 X 10*3/uL (0.00-0.01); Platelet Count 313 X 10*3/uL (140-440); RBC 5.12 X 10*6/uL (4.10-5.20); RDW 12.5 % (11.5-14.5); WBC 5.86 X 10*3/uL (4.50-10.00)
== END | disposition home or self-care (01) ==
LOC: LABPAT 09:27
PROVIDERS: ATTEND Surgery Plastic and Reconstructive Surgery
DX: Z01.818 Encounter for other preprocedural examination (principal); K46.9 Unspecified abdominal hernia without obstruction or gangrene
CPT/HCPCS: 85027

== ENCOUNTER 2023-03-23 08:16 | Day surgery (SDC) | payer OTHER ==
[~2023-03-23 08:16] MED LIST changes: +ACETAMINOPHEN TAB 500 MG TAB PO PRN; +CHLORHEXIDINE GLUCONATE 15 ML CUP MUCOUS MEM PRN; +HEPARIN SODIUM,PORCINE/PF 5,000 UNIT/0.5 ML SYRINGE SQ PRN; -LACTATED RINGERS 1,000 ML IV SCH; +ONDANSETRON 4 MG/2 ML VIAL IVP PRN; +PANTOPRAZOLE 40 MG/10 ML VIAL IVP PRN
[2023-03-23] MEDS ORDERED: MIDAZOLAM 2 MG/2 ML VIAL IV PRN (08:28)
--- NOTE | 2023-03-23 09:04 | P.GSHP ---
History of Present Illness H&P Date: 03/23/23 CHIEF COMPLAINT: Paraesophageal hiatal hernia with gastroesophageal reflux disease. HISTORY OF PRESENT ILLNESS: The patient is a 42-year-old female who presents with symptomatic paraesophageal hiatal hernia over one year with gastroesophageal reflux disease. She has completed upper endoscopy workup. Now she presents for surgical intervention. PAST MEDICAL HISTORY: Please see list. PAST SURGICAL HISTORY: Please see list. MEDICATIONS: Please see list. ALLERGIES: Please see list. AC SOCIAL HISTORY: No illicit drug use FAMILY HISTORY: No reports of Crohn disease or ulcerative colitis. REVIEW OF ORGAN SYSTEMS: CONSTITUTIONAL: No reports of fevers or chills. GI: Denies any blood in stools or constipation. PHYSICAL EXAM: VITAL SIGNS: Stable GENERAL: Well-developed pleasant and in no acute distress. HEENT: No scleral icterus. Extraocular movements grossly intact. Moist buccal mucosa. NECK: Supple without lymphadenopathy. CHEST: Unlabored respirations. Equal bilateral excursions. CARDIOVASCULAR: Regular rate and rhythm. Distal 2+ pulses. ABDOMEN: Soft, nondistended. No peritoneal signs. MUSCULOSKELETAL: No clubbing, cyanosis, or edema. SKIN: Well-perfused. Good skin turgor. REPORTS: Upper endoscopy demonstrates paraesophageal hiatal hernia BARIUM SWALLOW: Images reviewed demonstrating paraesophageal hiatal hernia. This is my independent interpretation. REPORTS: Cardiology risk assessment obtained. Please see chart. ASSESSMENT: 1. Diaphragmatic paraesophageal hiatal hernia with severe gastroesophageal reflux disease. PLAN: 1. Recommend proceeding with a robotic paraesophageal hiatal hernia with possible mesh. 2. Benefits and risks of surgical intervention was discussed including possibility of open technique. 3. Inpatient hospitalization recommended of 2 nights 4. DVT prophylaxis. 5. Antibiotic prophylaxis. 6. She has also completed a very low caloric high-protein diet to address underlying hepatomegaly. 7. Non narcotic pain management including abdominal wall block described 8. Blood sugar glucose described. 9. Weight loss management described. Past Medical History Past Medical History: GERD/Reflux Additional Past Medical History / Comment(s): SEASONAL ALLERGIES. HX HEMMORHAGE POST GASTRIC SLEEVE-08/02/22. MIGRAINES. ENDOMETRIOSIS. INTERSTITAL CYSTITIS History of Any Multi-Drug Resistant Organisms: None Reported Past Surgical History: Appendectomy, Bariatric Surgery Additional Past Surgical History / Comment(s): MULTIPLE LaproscopIES, ovarian cysts removed, colonoscopy. PAIN CLINIC PROCEDURE, EGD, GASTRIC SLEEVE, Past Anesthesia/Blood Transfusion Reactions: No Reported Reaction Smoking Status: Former smoker - Past Family History Mother Family Medical History: Cancer Medications and Allergies Home Medications Medication Instructions Recorded Confirmed Type Montelukast [Singulair] 10 mg PO HS 02/01/17 03/17/23 History Amitriptyline HCl [Elavil] 20 mg PO HS 08/13/20 03/17/23 History Fluticasone Nasal [place] [Flonase 1 spr EA NOSTRIL BID 08/13/20 03/17/23 History Nasal [place]] Loratadine [Claritin] 10 mg PO DAILY 08/13/20 03/17/23 History Pentosan Polysulfate Sodium 100 mg PO BID 08/13/20 03/17/23 History [Elmiron] Rimegepant Sulfate [Nurtec Odt] 75 mg PO DAILY PRN 08/10/22 03/17/23 History norgestimate-ethinyl estradioL 1 tab PO DAILY 08/10/22 03/17/23 History [Ortho Tri-Cyclen 28 Tablet] Omeprazole [PriLOSEC] 40 mg PO DAILY #14 cap 11/21/22 03/17/23 Rx Acetaminophen [Tylenol Extra 1,000 mg PO BID 03/17/23 03/17/23 History Strength] Calcium Citrate/Vitamin D3 1 each PO TID 03/17/23 03/17/23 History [Calcium Cit 315-Vit D3 6.25 Mcg (250 Iu)] Magnesium 250 mg PO HS 03/17/23 03/17/23 History Multivit with Calcium,Iron,Min 1 each PO DAILY 03/17/23 03/17/23 History [Women's Multivitamin] Propranolol [Inderal] 10 mg PO BID 03/17/23 03/17/23 History Topiramate [Topiramate ER] 75 mg PO DAILY 03/17/23 03/17/23 History ursodioL [Ursodiol] 300 mg PO BID 03/17/23 03/17/23 History Allergies Allergy/AdvReac Type Severity Reaction Status Date / Time niacin AdvReac flushing Verified 03/17/23 10:57 promethazine HCl AdvReac tremor/anxi Verified 03/17/23 10:57 [From Phenergan] ety Surgical - Exam Vital Signs Temp Pulse Resp BP Pulse Ox 97.7 F 76 16 107/80 99 03/23/23 08:50 03/23/23 08:50 03/23/23 08:50 03/23/23 08:50 03/23/23 08:50
[2023-03-23] MEDS ORDERED: droPERidol 5 MG/2 ML VIAL IVP ONE (09:05)
[2023-03-23] MEDS: LACTATED RINGERS 1,000 ML IV SCH (09:08)
[2023-03-23] MEDS ORDERED: DEXAMETHASONE SOD PHOSPHATE 4 MG/ML 1 ML VIAL IVP ONE (09:11)
[2023-03-23] MEDS ORDERED: SCOPOLAMINE 1 MG/72 HR PATCH TRANSDERM SCH (09:15)
[2023-03-23] MEDS ORDERED: MIDAZOLAM 2 MG/2 ML VIAL IVP ONE (09:38)
[2023-03-23 09:43] LABS: Basophils % (A) 1 %; Eosinophils # (A) 0.1 k/uL (0-0.7); Eosinophils % (A) 1 %; HCT 46.4 % (34.0-46.0); HGB 15.9 gm/dL (11.4-16.0); Lymphocytes # (A) 1.9 k/uL (1.0-4.8); Lymphocytes % (A) 25 %; MCH 30.1 pg (25.0-35.0); MCHC 34.3 g/dL (31.0-37.0); MCV 87.9 fL (80.0-100.0); Mean Platelet Volume 7.7; Monocytes # (A) 0.4 k/uL (0-1.0); Monocytes % (A) 6 %; Neutrophils # (A) 4.8 k/uL (1.3-7.7); Neutrophils % (A) 66 %; Platelet Count 240 k/uL (150-450); RBC 5.28 m/uL (3.80-5.40); WBC 7.3 k/uL (3.8-10.6)
[2023-03-23 10:03] LABS: ALT 23 U/L (4-34); AST 28 U/L (14-36); African American GFR (CKD) >90 (>60 ml/min/1.73 sqM); Albumin 4.2 g/dL (3.5-5.0); Alkaline Phosphatase 75 U/L (38-126); Anion Gap 10 mmol/L; Blood Urea Nitrogen 16 mg/dL (7-17); Calcium 9.9 mg/dL (8.4-10.2); Carbon Dioxide 25 mmol/L (22-30); Chloride 104 mmol/L (98-107); Glucose 79 mg/dL (74-99); Non-African American GFR(CKD) 85 (>60 ml/min/1.73 sqM); Potassium 4.7 mmol/L (3.5-5.1); Sodium 139 mmol/L (137-145); Total Bilirubin 0.5 mg/dL (0.2-1.3); Total Protein 7.8 g/dL (6.3-8.2)
[2023-03-23] MEDS ORDERED: GLYCOPYRROLATE 0.2 MG/ML 2 ML VIAL ONE (10:34)
[2023-03-23] MEDS ORDERED: NEOSTIGMINE 1 MG/ML 10 ML VIAL ONE (10:34)
[2023-03-23] MEDS ORDERED: LIDOCAINE 2% INJ 20 MG/ML (2 ML VIAL) ONE (10:34)
[2023-03-23] MEDS ORDERED: SUCCINYLCHOLINE CHLORIDE 200 MG/10 ML VIAL IV ONE (10:34)
[2023-03-23] MEDS ORDERED: MIDAZOLAM 2 MG/2 ML VIAL ONE (10:34)
[2023-03-23] MEDS ORDERED: PROPOFOL 10 MG/ML 20 ML VIAL IV ONE (10:34)
[2023-03-23] MEDS ORDERED: HYDROmorphone (PF) 1 MG/ML ONE (10:34)
[2023-03-23] MEDS ORDERED: fentaNYL (PF) 50 MCG/ML 2 ML AMP ONE (10:34)
[2023-03-23] MEDS ORDERED: ROCURONIUM 10 MG/ML (5 ML VIAL) IV ONE (10:34)
[2023-03-23] MEDS ORDERED: LIDOCAINE 1%-EPI 1:100,000 50 ML VIAL SQ ONE (11:02)
[2023-03-23] MEDS ORDERED: LACTATED RINGERS 1,000 ML IV ONE ×2 (11:23)
--- NOTE | 2023-03-23 12:03 | P.OP ---
Date of Procedure: 03/23/23 Description of Procedure: SURGEON: KATHLEEN ASHER MD PREOPERATIVE DIAGNOSES: 1. Symptomatic paraesophageal diaphragmatic hiatal hernia. 2. Gastroesophageal reflux disease. 3. Hypertensive heart disease 4. Generalized anxiety disorder POSTOPERATIVE DIAGNOSES: 1. Paraesophageal midline diaphragmatic hernia, 3 cm, without incarceration. 2. Gastroesophageal reflux disease. 3. Hypertensive heart disease 4. Generalized anxiety disorder 5. Esophageal dysmotility with ineffective esophageal motility OPERATION: 1. Robotic-assisted da Robert Xi laparoscopic repair of incarcerated paraesophageal hiatal hernia, 3 x 3 cm, with Hope Biopatch A 8 x 8 cm. 2. Intraoperative esophagogastroduodenoscopy ANESTHESIA: General with local anesthetic. ESTIMATED BLOOD LOSS: 5 mL SPECIMENS REMOVED: None COMPLICATIONS: None. Condition: stable Disposition: floor FINDINGS: 1. Midline incarcerated paraesophageal hiatal hernia 2 x 2 cm 2. Intraoperative upper endoscopy confirms complete closure of hiatal hernia from Hill grade 3 to Hill grade 1 3. Intraesophageal length over 2 cm Large sleeve gastrectomy Severe [erigastric adhesions INDICATIONS: The patient is a 42-year-old female who presents with gastroesophageal reflux disease poorly controlled despite medications, and a symptomatic diaphragmatic hiatal hernia. Preoperative workup including upper endoscopy demonstrated a sliding hiatal hernia. The patient completed an esophageal manometry. Given the severity of symptoms, the patient had elected for surgical intervention. Benefits and risks including bleeding, infection, recurrence, dysphagia, injury to the lung, need for further surgery was described at length. Informed consent was obtained. DESCRIPTION: The patient was brought into the operating room and placed in supine position. Preoperatively the patient had received heparin subcutaneously for DVT pr ophylaxis. After general induction, the abdomen was prepped and draped in standard sterile fashion. The patient had previously voided prior to coming to the operating room. Ioban draping was placed along the abdomen. A timeout protocol was confirmed with the surgical team, for which the patient's name, procedure to be performed including DVT prophylaxis with bilateral SCDs, and preoperative antibiotics were also confirmed. A robotic da Robert Xi system was prepped and primed. At 12 cm from the xiphoid to just below the umbilicus, proposed port sites were marked with indelible marker along the left axillary line, left mid-clavicular line with each ports were marked 10 cm from each other. A 5 mm 0 degrees laparoscopic trocar entry was performed along the left upper quadrant. The abdomen was insufflated to 15 mmHg pressure was tolerated well. Diagnostic laparoscopy demonstrated no injury to bowel, viscera, or mesentery. No injury had occurred to the small bowel or viscera. The liver was smooth consistent with two-week high-protein low-carb diet. Previous trochar sites from cholecystectomy were used. Next, one 8 mm robotic port was placed along the right upper abdomen. An 8-mm port was were placed along the right lateral lateral abdominal wall. The camera 8-mm port was maintained along the epigastrium. Another 12 mm port was placed along the left upper abdominal wall after exchanging the 5 mm port. Please note that the ports were placed at least 20 cm away from the target anatomy. Care was taken to check that each robotic arm were safely away from collision with the bed or the patient. At the epigastrium, a medium sized Marv liver retractor was placed under direct visualization with the Iron Seam Closer placed under the right shoulder of the patient. All robotic arms were used. The patient was repositioned in reverse Trendelenburg position at 21-degrees after lowering the bed. The robot was docked above the right side of the patient. Using a grasper for arm 3, a grasper for arm 1, including vessel sealer for arm 2, the robotic system was docked and primed as described. Instruments were interchanged by the urgent care physician assistant. I had sat at the console. The gastrohepatic ligament was cleaved using a vessel sealer. Next, the phrenoesophageal ligament was mobilized and the distal esophagus was mobilized circumferentially. The left and right cru ra was identified. Circumferentially, the hernia sac was excised and brought into the peritoneal cavity. Moderate dissection into the mediastinum was performed to release the esophagus into the abdominal cavity. The paraesophageal hiatal hernia sac was also incised and divided from the esophagus. Care was taken to avoid any gastrotomy. The measured defect was consistent with 3 cm axial length and 3 cm in width. After dissection, the distal esophagus of 2+ cm was brought into the abdominal cavity. Once the hiatus and crura was dissected, 2-0 VLOC nonabsorbable suture was placed to reapproximate the diaphragmatic hiatus posteriorly. To buttress the repair, a Hope Biopatch A was prepared along the back table and cut in half of a ferguson-hole fashion as to reinforce the repair as an underlay. The mesh was placed along the crural repair and tagged using horizontal mattress sutures using 2-0 VLOC. I went to the head of the bed to perform intraoperative esophagogastroduodenoscopy and placement of a 56Fr bougie. The bougie was passed along the posterior oropharynx into the stomach to address pre-existing esophageal dysmotility for 2 minutes then removed. An Olympus gastroscope was passed through posterior oropharynx. Retroflexion of the scope confirmed a Hill grade 1 lower esophageal valve. The stomach had been desufflated. No evidence of leaks were found of the esophagus or stomach. The GI tract with desufflated This concluded the endoscopic portion of the case. The robot was undocked from the patient. I re-scrubbed into the case. All instruments and pneumoperitoneum and specimens were evacuated from the abdominal cavity. Incisions were reapproximated using 4-0 Monocryl in an interrupted subcuticular fashion. Liquid glue was applied to the skin. Local anesthetic was infiltrated in all wounds for postop analgesia. At the end of the procedure, needle, sponge, and instrument count was verified correct by the surgical services director. The patient had tolerated the procedure well and was taken to the postanesthesia unit in stable condition.
[2023-03-23] MEDS: HYDROmorphone 0.5 MG/0.5 ML SYRINGE IVP PRN ×3 (12:16→21:57)
[2023-03-23] MEDS: ONDANSETRON 4 MG/2 ML VIAL IVP SCH ×3 (12:37→17:30)
[2023-03-23] MEDS ORDERED: KETOROLAC 15 MG/ML 1 ML VIAL IVP ONE (12:38)
[2023-03-23] MEDS ORDERED: diphenhydrAMINE 50 MG/ML 1 ML VIAL IVP ONE (13:40)
[2023-03-23] MEDS: DEXAMETHASONE SOD PHOSPHATE 4 MG/ML 1 ML VIAL IVP SCH ×2 (14:28→17:30)
[2023-03-23] MEDS: METOCLOPRAMIDE 5 MG/ML 2 ML VIAL IVP SCH ×2 (14:28→17:30)
[2023-03-23] MEDS: SIMETHICONE 80 MG CHEWABLE PO SCH ×3 (15:13→22:03)
[2023-03-23 15:24] VITALS: RESP 16
[2023-03-23] MEDS: ACETAMINOPHEN IV (For NPO) 1,000 MG in EMPTY BAG 1 BAG IVPB SCH ×2 (15:40→22:03)
[2023-03-23] MEDS: KETOROLAC 15 MG/ML 1 ML VIAL IVP SCH (17:30)
[2023-03-23] MEDS ORDERED: HYDROmorphone 1 MG/ML 1 ML SYRINGE IVP PRN (22:09)
[2023-03-23] MEDS: traMADol 50 MG TAB PO SCH (22:46)
[2023-03-24] MEDS: KETOROLAC 15 MG/ML 1 ML VIAL IVP SCH ×3 (00:46→13:37)
[2023-03-24] MEDS: ONDANSETRON 4 MG/2 ML VIAL IVP SCH ×3 (00:46→13:38)
[2023-03-24] MEDS: DEXAMETHASONE SOD PHOSPHATE 4 MG/ML 1 ML VIAL IVP SCH ×3 (00:46→13:39)
[2023-03-24] MEDS: METOCLOPRAMIDE 5 MG/ML 2 ML VIAL IVP SCH ×3 (00:46→13:39)
[2023-03-24] MEDS: ACETAMINOPHEN IV (For NPO) 1,000 MG in EMPTY BAG 1 BAG IVPB SCH ×2 (03:18→09:10)
[2023-03-24 07:41] VITALS: PULSE 74
[2023-03-24] MEDS ORDERED: ENOXAPARIN 30 MG/0.3 ML SYRINGE SQ SCH (09:00)
--- NOTE | 2023-03-24 09:00 | FL ---
EXAMINATION TYPE: FL esophagus cervic/pharynx DATE OF EXAM: 03/24/2023 HISTORY: Postsurgical changes from Yarely fundoplication. Prior gastric sleeve. COMPARISON: CT abdomen pelvis 08/10/2022 TECHNIQUE: A single contrast limited esophagram is performed utilizing 2 ounces [id number]-370. A total of 1 second of fluoroscopic time was utilized during procedure and 86 images obtained. Total dose a pepe product (DAP) in uGy*m?, mGy*cm? (or similar) : 2104.08. FINDINGS: Postsurgical changes from Yarely fundoplication and gastric sleeve. Normal motility and emptying into the stomach identified. No hiatal hernia or stricture noted. No evidence for obstruction or leak. IMPRESSION: Postsurgical changes without evidence for obstruction or leak.
[2023-03-24] MEDS: traMADol 50 MG TAB PO SCH ×2 (09:09→13:38)
[2023-03-24] MEDS: SIMETHICONE 80 MG CHEWABLE PO SCH ×2 (09:11→13:39)
[2023-03-24] MEDS: LACTATED RINGERS 1,000 ML IV SCH (09:18)
--- NOTE | 2023-03-24 12:12 | P.DS ---
Providers Expected date of discharge: 03/24/23 Attending physician: Henna Fisher Primary care physician: [facility] Hospital Course: Discharge diagnosis 1. Paraesophageal midline diaphragmatic hernia, 3 cm, without incarceration. 2. Gastroesophageal reflux disease. 3. Hypertensive heart disease 4. Generalized anxiety disorder 5. Esophageal dysmotility with ineffective esophageal motility Hospital course This is a 42-year-old female with history of GERD and symptomatic diaphragmatic hernia. She is status post Robotic-assisted da Robert Xi laparoscopic repair of incarcerated paraesophageal hiatal hernia with Gilbert Biopatch. Patient is tolerating diet. Upper GI showed no evidence for leak or obstruction. Her pain is controlled. She is having flatus. She has been up and ambulate in. She is stable for discharge. Physician Silver Wrapper note has been reviewed by physician. Signing provider agrees with the documented findings, assessment, and plan of care. Patient Condition at Discharge: Stable Plan - Discharge Summary Discharge Rx Participant: Yes New Discharge Prescriptions: New bisacodyL [Dulcolax] 5 mg PO DAILY PRN #10 tab PRN Reason: Constipation Simethicone 40 mg/0.6 ml Drops [Mylicon Drops] 40 mg PO PCHS PRN #30 ml PRN Reason: Gas Omeprazole [PriLOSEC] 40 mg PO DAILY #30 cap Acetaminophen Tab [Tylenol] 1,000 mg PO Q6HR PRN #30 tablet PRN Reason: Pain Ondansetron Odt [Zofran Odt] 4 mg PO Q8HR PRN #9 tab PRN Reason: Nausea Continue Montelukast [Singulair] 10 mg PO HS Fluticasone Nasal [place] [Flonase Nasal [place]] 1 spr EA NOSTRIL BID Loratadine [Claritin] 10 mg PO DAILY Amitriptyline HCl [Elavil] 20 mg PO HS norgestimate-ethinyl estradioL [Ortho Tri-Cyclen 28 Tablet] 1 tab PO DAILY Rimegepant Sulfate [Nurtec Odt] 75 mg PO DAILY PRN PRN Reason: Migraine Headache Omeprazole [PriLOSEC] 40 mg PO DAILY #14 cap Propranolol [Inderal] 10 mg PO BID Discontinued Pentosan Polysulfate Sodium [Elmiron] 100 mg PO BID Calcium Citrate/Vitamin D3 [Calcium Cit 315-Vit D3 6.25 Mcg (250 Iu)] 1 each PO TID Topiramate [Topiramate ER] 75 mg PO DAILY Multivit with Calcium,Iron,Min [Women's Multivitamin] 1 each PO DAILY Acetaminophen [Tylenol Extra Strength] 1,000 mg PO BID ursodioL [Ursodiol] 300 mg PO BID Magnesium 250 mg PO HS Discharge Medication List Montelukast [Singulair] 10 mg PO HS 02/01/17 [History] Amitriptyline HCl [Elavil] 20 mg PO HS 08/13/20 [History] Fluticasone Nasal [place] [Flonase Nasal [place]] 1 spr EA NOSTRIL BID 08/13/20 [History] Loratadine [Claritin] 10 mg PO DAILY 08/13/20 [History] Rimegepant Sulfate [Nurtec Odt] 75 mg PO DAILY PRN 08/10/22 [History] norgestimate-ethinyl estradioL [Ortho Tri-Cyclen 28 Tablet] 1 tab PO DAILY 08/10/22 [History] Omeprazole [PriLOSEC] 40 mg PO DAILY #14 cap 11/21/22 [Rx] Propranolol [Inderal] 10 mg PO BID 03/17/23 [History] Acetaminophen Tab [Tylenol] 1,000 mg PO Q6HR PRN #30 tablet 03/24/23 [Rx] Omeprazole [PriLOSEC] 40 mg PO DAILY #30 cap 03/24/23 [Rx] Ondansetron Odt [Zofran Odt] 4 mg PO Q8HR PRN #9 tab 03/24/23 [Rx] Simethicone 40 mg/0.6 ml Drops [Mylicon Drops] 40 mg PO PCHS PRN #30 ml 03/24/23 [Rx] bisacodyL [Dulcolax] 5 mg PO DAILY PRN #10 tab 03/24/23 [Rx] Follow up Appointment(s)/Referral(s): Henna Fisher MD [STAFF PHYSICIAN] - 03/28/23 Activity/Diet/Wound Care/Special Instructions: Liquid diet only for 2 weeks No lifting over 4 pounds in 4 weeks May Shower. No soaking in bath tubs for 2 weeks Please notify your surgeon if you develop nausea and vomiting including new onset of abdominal pain. Continue to use incentive spirometry to prevent pneumonias. Please continue to ambulate at home to prevent blood clots in legs. Follow-up at the bariatric center. May shower. Dressings to be discontinued by surgeon in the office. Drink 64 oz of fluid daily. Start protein shakes on . Notify Surgeon for temp over 101.0, increased pain, drainage from incisions. No straws or carbonated beverages. Liquid diet only. Sugar content should be less than 6 g to avoid dumping syndrome. Take MOM for constipation. CRUSH, OPEN, OR CUT TABLETS LARGER THAN A SIZE OF A TIC TAC Discharge Disposition: HOME SELF-CARE
[2023-03-24 13:41] VITALS: BP 97/62; TEMP 98.4
[2023-03-24 13:45] VITALS: BMI 28.3
== END 2023-03-24 15:15 | disposition home or self-care (01) ==
LOC: OR 08:16 → 4SSUR 14:49 → OR 03-24 15:15
PROVIDERS: ATTEND Surgery Plastic and Reconstructive Surgery
DX: K44.0 Diaphragmatic hernia with obstruction, without gangrene (principal); K21.9 Gastro-esophageal reflux disease without esophagitis; I11.9 Hypertensive heart disease without heart failure; F41.8 Other specified anxiety disorders; Z90.49 Acquired absence of other specified parts of digestive tract; Z98.890 Other specified postprocedural states; Z87.891 Personal history of nicotine dependence; Z88.8 Allergy status to other drugs, medicaments and biological substances; Z79.899 Other long term (current) drug therapy
CPT/HCPCS: 81025; 80053; 85025; 74210; 43281; C1781; J2250; J1200; J1100 ×2; J2765 ×2; J0690 ×2; J2405 ×2; J1650; J1170 ×2; J0131 ×2; J1885 ×2; C9113; Q9967; J1644

== ENCOUNTER → 2023-11-06 | Outpatient (CLI) | payer OTHER ==
--- NOTE | 2023-11-07 21:37 | MR ---
EXAMINATION TYPE: MR lumbar spine wo con DATE OF EXAM: 11/06/2023 COMPARISON: None HISTORY: Low back pain into buttocks CONTRAST: 0 mL intravenous Gadavist. TECHNIQUE: Multiplanar, multisequence images of the lumbar spine were acquired. FINDINGS: L5-S1: Is some left paracentral disc bulging. This has left S1 nerve root contact. Correlate with lef t S1 radicular symptoms. Disc desiccation is present. No spinal canal stenosis. Moderate narrowing o f the left foramen. L4-L5: No significant disc bulge or disc herniation. No spinal canal stenosis. No foraminal stenosi s. L3-L4: No significant disc bulge or disc herniation. No spinal canal stenosis. No foraminal stenosi s. L2-L3: No significant disc bulge or disc herniation. No spinal canal stenosis. No foraminal stenosi s. L1-L2: No significant disc bulge or disc herniation. No spinal canal stenosis. No foraminal stenosi s. T12-L1: No significant disc bulge or disc herniation. No spinal canal stenosis. No foraminal stenos is. IMPRESSION: 1. Small left paracentral disc bulge L5-S1 has contact with the left S1 exiting nerve root. Correlate with radicular symptoms. Moderate left foraminal narrowing is present at this level.
== END | disposition home or self-care (01) ==
LOC: RADMRIMAIN 10:49
PROVIDERS: ATTEND Family Medicine
DX: M99.73 Connective tissue and disc stenosis of intervertebral foramina of lumbar region (principal); M51.37 Other intervertebral disc degeneration, lumbosacral region
CPT/HCPCS: 72148

== ENCOUNTER → 2023-12-14 | Outpatient (CLI) | payer OTHER ==
[2023-12-14 11:13] VITALS: BP 106/62; PULSE 82; RESP 16
--- NOTE | 2023-12-14 14:48 | P.PAINPG ---
PQRS Measure Charge Sheet Comment: HISTORY OF PRESENT ILLNESS: A 43 yr oldfemale as a referral from the [facility] presents today w severe and chronic LBP > 1 yr secondary to DDD, spondylosis and facet arthropathy without myelopathy for evaluation. Pt states pain level is provoked at 6 /10 in intensity, constant, localized in the lower lumbar spine, predominantly axial, sharp in character w occasional shooting pain towards the R hip > L. Pain is provoked by walking/ standing for periods > 20 min. Pain is alleviated by PT x 6-8 wks in 2022, chiropractic treatments monthly x 1 yr w last visit in Sep 2023, physician guided home exercises/ stretches 5 times weekly since Jul 2023, heat, ice, medications (Tyl), topical CBD oil, repositioning and rest . Oswestry axial pain score at 25. PMH: OA, GERD, Endometriosis, IC, Seasonal Allergies, Migraines PSH: HH Repair (2022), Multiple Laparoscopies, Ovarian Cystectomy, Appendectomy, Gastric Sleeve Surgery, Colonoscopy/ EGD SH: Former tobacco user, No ETOH abuse, No illicit drug use FH: Mo- [place] All: See list Meds: See list REVIEW OF ORGAN SYSTEMS: CONSTITUTIONAL: No fevers or chills. No recent weight loss. NEUROLOGICAL: + numbness and tingling along the distal extremities. No seizure disorders or headaches. MUSCULOSKELETAL: + pain PSYCHIATRIC: Denies current depression or suicidal thoughts. Physical Examinations : Constitutional : Cooperative , not in acute distress . Neurologic : Cranial nerve II to XII intact. No focal neurological deficits. Psychiatric : alert & oriented x 3. Matching mood & appropriate affect. Judgment & insight intact. Musculoskeletal : Cervical Spine Motor strength in the deltoid and biceps: Normal right side. Normal Left side Motor strength biceps and the wrist extensors: Normal right side . Normal left side Motor strength in the triceps muscle: Normal right side. Normal left side Deep tendon reflexes: Normal at the biceps. Normal at Brachioradialis. Normal at triceps Vertebral body tenderness to deep palpation over Cervical facet loading test: positive bilaterally Spurling test: positive bilaterally Neck distraction test: positive bilaterally Renee sign: positive bilaterally Lumbar spine Motor strength lower extremities ,thigh and legs 5/5 Right side , 5/5 Left side Deep tendon reflexes : Normal Knee Jerk. Normal Ankle Jerk Vertebral body tenderness over Kidd Test positive Lumbar facet Loading Test: positive Right / positive Left Range of motion of the lumbar spine Flexion 30 degrees, extension 10 degrees Straight Leg Raise test: Left/ Right positive at degrees Rohith test: positive right / positive left. Severe tenderness over the Sacroiliac joint on the Right / Left sides Gaenslen test: positive bilaterally Seated flexion test: positive bilaterally. Sacral spine : Severe tenderness over the Sacroiliac joint: right side / left side Range of motion: Flexion of the lumbar spine <60 degrees Range of motion: Extension of the lumbar spine <20 degrees Gaenslen's Test positive BL Rohith test: positive right side < left side Thigh Thrust Test +BL positive Sacral Thrust Test Imaging: MRI noncontrast of the lumbar spine from 11/06/2023 reviewed Assessment/ Plan : Lumbar DDD, BL Sacroiliitis Recommendation of BL SI injection #1. May need a series of injections for optimal pain relief. Risks, benefits of procedure discussed and patient verbalized understanding. Admits to anti- coagulant use or medical history of diabetes. Protocol for discontinuation/ continuation of medications annel procedure discussed. All questions answered. I have spent greater than 30 minutes on patient care today. Dr Lyle was available by phone for the evaluation of this patient. The time was used to review the medical records including relevant urine studies and Prescription history (MAPs), review of the available imaging, evaluation and examination of the patient, coordination of care with the medical staff and if applicable referring physicians, as well as creation of the medical record PQRS Narrative: Smoking Status Former smoker Hx Alcohol Use (MH) Yes: rare Home Medications: Ambulatory Orders Montelukast [Singulair] 10 mg PO HS 02/01/17 Amitriptyline HCl [Elavil] 20 mg PO HS 08/13/20 Fluticasone Nasal [place] [Flonase Nasal [place]] 1 spr EA NOSTRIL BID 08/13/20 Loratadine [Claritin] 10 mg PO DAILY 08/13/20 Rimegepant Sulfate [Nurtec Odt] 75 mg PO DAILY PRN 08/10/22 norgestimate-ethinyl estradioL [Ortho Tri-Cyclen 28 Tablet] 1 tab PO DAILY 08/10/22 Omeprazole [PriLOSEC] 40 mg PO DAILY #14 cap 11/21/22 Propranolol [Inderal] 10 mg PO BID 03/17/23 Acetaminophen Tab [Tylenol] 1,000 mg PO Q6HR PRN #30 tablet 03/24/23 Omeprazole [PriLOSEC] 40 mg PO DAILY #30 cap 03/24/23 Ondansetron Odt [Zofran Odt] 4 mg PO Q8HR PRN #9 tab 03/24/23 Simethicone 40 mg/0.6 ml Drops [Mylicon Drops] 40 mg PO PCHS PRN #30 ml 03/24/23 bisacodyL [Dulcolax] 5 mg PO DAILY PRN #10 tab 03/24/23 Controlled Substance Measures - Controlled Substance Measures Is patient prescribed a controlled substance at discharge?: No
== END ==
LOC: PNWHC3 09:01
PROVIDERS: ATTEND Specialist
DX: M51.36 Other intervertebral disc degeneration, lumbar region (principal); Z87.891 Personal history of nicotine dependence; Z88.8 Allergy status to other drugs, medicaments and biological substances; Z88.1 Allergy status to other antibiotic agents
CPT/HCPCS: 99211

== ENCOUNTER → 2023-12-26 | Day surgery (SDC) | payer OTHER ==
[2023-12-21 18:49] VITALS: BMI 30.2
[~2023-12-26] MED LIST changes: -ACETAMINOPHEN TAB 500 MG TAB PO PRN; -CHLORHEXIDINE GLUCONATE 15 ML CUP MUCOUS MEM PRN; -HEPARIN SODIUM,PORCINE/PF 5,000 UNIT/0.5 ML SYRINGE SQ PRN; +LACTATED RINGERS 1,000 ML IV SCH; -ONDANSETRON 4 MG/2 ML VIAL IVP PRN; -PANTOPRAZOLE 40 MG/10 ML VIAL IVP PRN; +ROPIVACAINE 5MG/ML 20ML VIAL ONE; +TRIAMCINOLONE ACETONIDE 40 MG/ML 1 ML VIAL ONE
[2023-12-26 08:16] VITALS: RESP 16; TEMP 97.7
--- NOTE | 2023-12-26 09:04 | P.PCN ---
Date of Procedure: 12/26/23 Surgeon: Leonarda Vo Pathology: none sent Condition: stable Disposition: PACU Description of Procedure: Preoperative diagnoses= bilateral sacroiliac joint dysfunction and sacroiliitis Postoperative diagnoses= same as preoperative diagnosis. Procedure= bilateral sacroiliac joint steroid injection under fluoroscopic guidance. Anesthesia= local anesthesia only with lidocaine 1% Estimated blood loss=minimal. Procedure indication= the patient had a history of severe chronic low back pain, diagnosed with sacroiliitis and lumbar sacral facet arthropathy unresponsive to conservative treatment. Procedure description= the patient was seen and identified in the preoperative holding area, risks and benefits and alternative of the procedure and possible complications discussed with the patient, patient signed the consent. an IV was started, and vital signs were monitored and were stable throughout the procedure, patient was placed in the prone position or table and the lumbosacral area was prepped and draped with a sterile fashion, vital signs were closely monitored during the procedure.The sacroiliac joint was identified on the AP view of fluoroscopy then the C-arm was tilted to the contralateral oblique position to superimpose the anterior and posterior joint lines on each other and to have a unified joint line with the target point at the inferior one third of this line. I used 22-gauge 3-1/2 inch Quincke spinal needle for this procedure and after getting into the sacroiliac joint I injected 20 mg of Kenalog +2 MLS of Ropivacaine 0.5%. Patient tolerated the procedure well without any complication,the opposite side was done in the same manner. The patient returned to supine position after the back was cleaned and a Band- Aid applied, the patient transported to recovery room in stable condition and he was monitored for 30 minutes before she was discharged home in stable condition . patient will follow up with the pain clinic in a few weeks. A copy of the needle placement was saved to the C-arm machine.
[2023-12-26 09:36] VITALS: BP 115/77; PULSE 65
--- NOTE | 2023-12-26 12:32 | FL ---
EXAMINATION TYPE: FL guided pain mgmt statistic DATE OF EXAM: 12/26/2023 FLUOROSCOPY Fluoroscopy time of 8.8 seconds was used during bilateral SI joint injections. 2 image/s document/s the procedure. DAP [id number] mGycm2.
== END ==
LOC: ORPAIN 07:41
PROVIDERS: ATTEND Anesthesiology
DX: M46.1 Sacroiliitis, not elsewhere classified (principal); Z79.899 Other long term (current) drug therapy
CPT/HCPCS: 81025; 27096; J3301; J2795

== ENCOUNTER → 2023-12-28 | Outpatient (CLI) | payer OTHER ==
--- NOTE | 2023-12-28 13:23 | MM ---
Reason for Exam: Screening (asymptomatic). Last screening mammogram was performed 12 month(s) ago. Patient History: Menarche at age 10. Patient has no children. Currently using Hormonal Contraceptives, for 5 years. Maternal grandmother had breast cancer, age 28. Paternal aunt had breast cancer. Risk Values: Deya 5 year model risk: 0.8%. NCI Lifetime model risk: 11.9%. Prior Study Comparison: 06/14/2021 Bilateral Diagnostic Mammogram, [facility]. 11/29/2021 Bilateral Diagnostic Mammogram, [facility]. 12/26/2022 Bilateral MG 3D screening mammo w/cad, [facility]. Tissue Density: The breasts are heterogeneously dense, which may obscure small masses. Findings: Analyzed By CAD. Right breast: There is no suspicious group of microcalcifications or new suspicious mass. Left breast: There is no suspicious group of microcalcifications or new suspicious mass. Overall Assessment: Negative, BI-RAD 1 Management: Screening Mammogram of both breasts in [address] [facility] will attempt to contact patient to return for supplemental views and ultrasound if indicated. Patient should continue monthly self-breast exams. A clinical breast exam by your physician is recommended on an annual basis. This exam should not preclude additional follow-up of suspicious palpable abnormalities. Note on Deya scores and lifetime risk: 1. A Deya score greater than 3% is considered moderate risk. If this is the case, consider specialist referral to assess eligibility for a risk reducing agent. 2. If overall lifetime risk for the development of breast cancer is 20% or higher, the patient may qualify for future screening with alternating mammogram and breast MRI. Electronically signed and approved by: Kannan Zambrano DO
== END | disposition home or self-care (01) ==
LOC: RADMAMWWP 09:27
PROVIDERS: ATTEND Family Medicine
DX: Z12.31 Encounter for screening mammogram for malignant neoplasm of breast (principal); Z80.3 Family history of malignant neoplasm of breast
CPT/HCPCS: 77063; 77067

== ENCOUNTER → 2024-01-11 | Outpatient (CLI) | payer OTHER ==
[2024-01-11 09:34] VITALS: BP 104/72; PULSE 86; RESP 16
--- NOTE | 2024-01-11 14:18 | P.PAINPG ---
PQRS Measure Charge Sheet Comment: HISTORY OF PRESENT ILLNESS: A 43 yr old female presents today w severe and chronic LBP > 1 yr secondary to DDD, spondylosis and facet arthropathy without myelopathy for evaluation s/p BL SI injection #1. Pt states she experienced 0 % pain relief x 2-3 wks s/p procedure. Pt states pain level is provoked at 6 /10 in intensity, constant, localized in the lower lumbar spine, predominantly axial, sharp in character w occasional shooting pain towards the R hip > L. Pain is provoked by sitting for periods > 20 min. Pain is alleviated by PT x 6-8 wks in 2022, chiropractic treatments monthly x 1 yr w last visit in Sep 2023, physician guided home exercises/ stretches 5 times weekly since Jul 2023, heat, ice, medications, topical, repositioning and rest . Oswestry axial pain score at 25. Interventional procedures include BL SI injection x1 (Dec 2023) Medications include Tyl, CBD Oil REVIEW OF ORGAN SYSTEMS: CONSTITUTIONAL: No fevers or chills. No recent weight loss. NEUROLOGICAL: + numbness and tingling along the distal extremities. No seizure disorders or headaches. MUSCULOSKELETAL: + pain PSYCHIATRIC: Denies current depression or suicidal thoughts. Physical Examinations : Constitutional : Cooperative , not in acute distress . Neurologic : Cranial nerve II to XII intact. No focal neurological deficits. Psychiatric : alert & oriented x 3. Matching mood & appropriate affect. Judgment & insight intact. Musculoskeletal : Cervical Spine Motor strength in the deltoid and biceps: Normal right side. Normal Left side Motor strength biceps and the wrist extensors: Normal right side . Normal left side Motor strength in the triceps muscle: Normal right side. Normal left side Deep tendon reflexes: Normal at the biceps. Normal at Brachioradialis. Normal at triceps Vertebral body tenderness to deep palpation over Cervical facet loading test: positive bilaterally Spurling test: positive bilaterally Neck distraction test: positive bilaterally Renee sign: positive bilaterally Lumbar spine Motor strength lower extremities ,thigh and legs 5/5 Right side , 5/5 Left side Deep tendon reflexes : Normal Knee Jerk. Normal Ankle Jerk Vertebral body tenderness over L5 Kidd Test positive BL L5-S1 L> R Lumbar facet Loading Test: positive Right / positive Left Range of motion of the lumbar spine Flexion 30 degrees, extension 10 degrees Straight Leg Raise test: Left/ Right positive at degrees Rohith test: positive right / positive left. Severe tenderness over the Sacroiliac joint on the Right / Left sides Gaenslen test: positive bilaterally Seated flexion test: positive bilaterally. Sacral spine : Severe tenderness over the Sacroiliac joint: right side / left side Range of motion: Flexion of the lumbar spine <60 degrees Range of motion: Extension of the lumbar spine <20 degrees Gaenslen's Test positive BL Rohith test: positive right side < left side Thigh Thrust Test +BL positive Sacral Thrust Test Imaging: MRI noncontrast of the lumbar spine from 11/06/2023 reviewed Assessment/ Plan : Lumbar DDD, BL Sacroiliitis Recommendation of BL TFESI L5-S1 #1. May need a series of injections for optimal pain relief. Risks, benefits of procedure discussed and patient verbalized understanding. Admits to anti- coagulant use or medical history of diabetes. Protocol for discontinuation/ continuation of medications annel procedure discussed. Minimal anesthesia including Fentanyl and Versed if clinically indicated. All questions answered. I have spent greater than 30 minutes on patient care today. Dr Lyle was available by phone for the evaluation of this patient. The time was used to review the medical records including relevant urine studies and Prescription history (MAPs), review of the available imaging, evaluation and examination of the patient, coordination of care with the medical staff and if applicable referring physicians, as well as creation of the medical record PQRS Narrative: Smoking Status Former smoker Hx Alcohol Use (MH) Yes: rare Home Medications: Ambulatory Orders Montelukast [Singulair] 10 mg PO HS 02/01/17 Amitriptyline HCl [Elavil] 20 mg PO HS 08/13/20 Fluticasone Nasal [place] [Flonase Nasal [place]] 1 spr EA NOSTRIL BID 08/13/20 Loratadine [Claritin] 10 mg PO DAILY 08/13/20 Rimegepant Sulfate [Nurtec Odt] 75 mg PO DAILY PRN 08/10/22 Acetaminophen Tab [Tylenol] 1,000 mg PO Q6HR PRN #30 tablet 03/24/23 Omeprazole [PriLOSEC] 40 mg PO DAILY #30 cap 03/24/23 Atorvastatin Calcium 80 mg PO DAILY 12/21/23 Calcium Carb-Vit D 250Mg-125Un [Oscal 250+D 3.125 Mcg (125 Iu)] 1 each PO BID 12/21/23 Magnesium 250 mg PO DAILY 12/21/23 Pentosan Polysulfate Sodium [Elmiron] 100 mg PO BID 12/21/23 Vit No.179/Iron/Folic [ Tablet] 1 each PO DAILY 12/21/23 Controlled Substance Measures - Controlled Substance Measures Is patient prescribed a controlled substance at discharge?: No
== END ==
LOC: PNWHC3 08:58
PROVIDERS: ATTEND Specialist
DX: M46.1 Sacroiliitis, not elsewhere classified (principal); M51.36 Other intervertebral disc degeneration, lumbar region; Z87.891 Personal history of nicotine dependence; Z88.1 Allergy status to other antibiotic agents; Z88.8 Allergy status to other drugs, medicaments and biological substances
CPT/HCPCS: 99212

== ENCOUNTER 2024-02-09 07:42 | Day surgery (SDC) | payer OTHER ==
[2024-02-09] MEDS: IV FLUID CONTINUATION 1,000 ML IV ONE ×2 (08:04→09:14)
[2024-02-09 08:16] VITALS: TEMP 98.1
[2024-02-09] MEDS: LACTATED RINGERS 1,000 ML IV SCH (08:31)
[2024-02-09 08:36] LABS: Glucose,Whole Blood 83 mg/dL (70-110)
[2024-02-09] MEDS ORDERED: MIDAZOLAM 2 MG/2 ML VIAL ONE (08:47)
[2024-02-09] MEDS ORDERED: fentaNYL (PF) 50 MCG/ML 2 ML AMP ONE (08:47)
[2024-02-09] MEDS ORDERED: IOPAMIDOL M200 10 ML VIAL ONE (08:47)
[2024-02-09] MEDS ORDERED: DEXAMETHASONE SOD PHOSPHATE 10 MG/ML 1 ML VIAL ONE (08:47)
--- NOTE | 2024-02-09 09:09 | P.PCN ---
Date of Procedure: 02/09/24 Description of Procedure: PREOPERATIVE DIAGNOSIS: Lumbar radiculopathy POSTOPERATIVE DIAGNOSIS: Lumbar radiculopathy PROCEDURES: 1. bilateral L5-S1 Transforaminal epidural steroid injection under fluoroscopic guidance 2. Lumbar epidurogram. SURGEON: Dewey Barrera WORKERS COMPENSATION PARALEGAL: None ANESTHESIA: Local , IV sedation : Versed 2 mg, and fentanyl 100 g Patient was reevaluated before the signal maintainer Sedation supervision times: [phone]- [phone] EBL: None. PROCEDURE INDICATIONS: This patient with a history of lumbar radiculopathy. Failed with conservative therapy came here for intervention procedure management. So came here for the intervention procedure . PROCEDURE DESCRIPTION: The patient was seen and identified in the preoperative area. Risks, benefits, complications, and alternatives were discussed with the patient. The patient agreed to proceed with the procedure and signed the consent. IV was started, and vital signs were stable. Patient was taken to the OR and time out was completed. The patient was placed in the prone position on procedure table and a pillow was placed under the abdomen to reduce lumbar lordosis. The lumbosacral area was prepped with [id number] and draped in the usual sterile fashion. Critical pause was taken. Vital signs were closely monitored during the procedure. Using oblique fluoroscopy, the chin of the Fabian dog at right side L5 and the skin and deeper tissues just below was localized with 1% lidocaine. Subsequently, a 22-gauge 5- spinal needle was advanced under a tunneled view fluoroscopic guidance just underneath the chin of the Fabian dog at left L5. Under lateral fluoroscopy, the needle was then advanced to the posterior border of the L5 interforaminal space. After negative aspiration of CSF and blood and with no paresthesias, 1 mL of [id number] dye was injected good epidurogram and outlining of the L5 nerve root. After negative aspiration of CSF, blood and with no paresthesia 3 mL of block solution containing 10 MG of dexamethasone, mixed with 2 mL of normal saline preservative-free was injected. Needle was removed intact. entire procedure repeated on the left side L5 level. Needle was removed intact. Skin was cleansed, and bandages were applied. COMPLICATIONS: None. PREPROCEDURE VAS: 5 out of 10 postprocedure Procedure VAS;5 out of 10 DISPOSITION / PLANS: The patient was placed in a supine position and transferred to the recovery area in a stable condition for observation. There was no evidence of lower extremity motor or sensory deficit after the procedure. Patient was discharged from the recovery room after meeting discharge criteria. Home discharge instructions were given to the patient by the staff. The patient was reexamined prior to discharge. Patient can follow up with the pain clinic in 4 weeks duration.
[2024-02-09 09:16] VITALS: RESP 16
[2024-02-09 09:28] VITALS: BP 126/87; PULSE 82
--- NOTE | 2024-02-09 13:06 | FL ---
EXAMINATION TYPE: FL guided pain mgmt statistic DATE OF EXAM: 02/09/2024 FLUOROSCOPY Carlo Transforaminal Inj 25 sec fluoro time .[id number] Barrera 4 images submitted.
== END 2024-02-09 09:48 | disposition home or self-care (01) ==
LOC: ORPAIN 07:42
DX: M54.16 Radiculopathy, lumbar region (principal); G43.909 Migraine, unspecified, not intractable, without status migrainosus; K21.9 Gastro-esophageal reflux disease without esophagitis; Z79.899 Other long term (current) drug therapy; Z79.02 Long term (current) use of antithrombotics/antiplatelets; Z88.8 Allergy status to other drugs, medicaments and biological substances; Z88.1 Allergy status to other antibiotic agents
CPT/HCPCS: 81025; 64483; 99152; J2250; J1100; J3010; Q9966

== ENCOUNTER → 2024-02-28 | Outpatient (CLI) | payer OTHER | LOC: PNWHC3 08:52 | DX: M54.14 Radiculopathy, thoracic region | CPT/HCPCS: 99211 ==

== ENCOUNTER → 2024-07-03 | Outpatient (CLI) | payer OTHER ==
--- NOTE | 2024-07-04 09:02 | US ---
EXAMINATION TYPE: US abdomen limited DATE OF EXAM: 07/03/2024 COMPARISON: NONE CLINICAL INDICATION: Female, 43 years old with history of R10.10 ABD PAIN; RUQ and rt shoulder pain x months. Pt states concern for GB TECHNIQUE: Grayscale and color Doppler imaging of the right upper quadrant was performed. FINDINGS: EXAM MEASUREMENTS: Liver Length: 13.3 cm Gallbladder Wall: 0.30 cm CBD: 0.50 cm Right Kidney: 8.4 x 4.4 x 4.2 cm ANALYTICS SENIOR MANAGER NOTES: Pancreas: tail obscured by bowel gas, parts seen appear wnl Liver: wnl Gallbladder: wall appears upper limits of normal Evidence for sonographic Zavala's sign: No CBD: wnl Right Kidney: wnl IMPRESSION: 1. Borderline thickening of the gallbladder wall. Consider cholecystitis. No additional changes such as pericholecystic fluid or positive Zavala sign is a identified. [facility], , 07/04/2024 9:00 AM
== END | disposition home or self-care (01) ==
LOC: RADUSWWP 11:04
PROVIDERS: ATTEND Family Medicine
DX: K81.9 Cholecystitis, unspecified (principal); K82.8 Other specified diseases of gallbladder
CPT/HCPCS: 76705

== ENCOUNTER → 2024-07-11 | Day surgery (SDC) | payer OTHER ==
[~2024-07-11] MED LIST changes: +GLYCOPYRROLATE 0.2 MG/ML 2 ML VIAL ONE; +HYDROmorphone (PF) 1 MG/ML ONE; +INDOCYANINE GREEN 25 MG VIAL IV STA; -LACTATED RINGERS 1,000 ML IV SCH; +LIDOCAINE 1% (10MG/ML) FOR IV START INTRADERMA PRN; +LIDOCAINE 1% INJ 10MG/ML (20 ML MDV) ONE; +MEPERIDINE 50 MG/ML SYRINGE IVP ONE; +MIDAZOLAM 2 MG/2 ML VIAL ONE; +NEOSTIGMINE 1 MG/ML 10 ML VIAL ONE; +PROPOFOL 10 MG/ML 20 ML VIAL IV ONE; +ROCURONIUM 10 MG/ML (5 ML VIAL) IV ONE; -ROPIVACAINE 5MG/ML 20ML VIAL ONE; +SUCCINYLCHOLINE CHLORIDE 200 MG/10 ML VIAL IV ONE; -TRIAMCINOLONE ACETONIDE 40 MG/ML 1 ML VIAL ONE; +fentaNYL (PF) 50 MCG/ML 2 ML AMP IVP PRN; +fentaNYL (PF) 50 MCG/ML 2 ML AMP ONE
--- NOTE | 2024-07-11 07:06 | P.GSHP ---
History of Present Illness H&P Date: 07/11/24 CHIEF COMPLAINT: Cholecystitis HISTORY OF PRESENT ILLNESS: The patient is a 43-year-old female who presents with history of epigastric including right upper quadrant abdominal pain. She underwent diagnostic studies for her gallbladder. Separately her clinical picture was consistent with cholecystitis. Now she presents for surgical intervention. PAST MEDICAL HISTORY: Please see list PAST SURGICAL HISTORY: Please see list MEDICATIONS: Please see list ALLERGIES: Please see list SOCIAL HISTORY: Please see list FAMILY HISTORY: Please see list REVIEW OF ORGAN SYSTEMS: CONSTITUTIONAL: No reports of fevers or chills. HEENT: Denies any troubles with the vision or hearing. ENDOCRINE: No reports of hypothyroidism. No diabetes. RESPIRATORY: No recent pneumonias. CARDIOVASCULAR: Denies chest pain or palpitations GI: No blood in stools or constipation. MUSCULOSKELETAL: Has occasional joint pain including back pain. NEURO: No seizure disorders or headaches. No recent stroke. PSYCH: No depression or suicidal ideation. GENITOURINARY: No active blood in urine. No urinary hesitancy. HEMATOLOGIC: No personal or family history of DVTs or pulmonary emboli. SKIN: No skin cancer. PHYSICAL EXAM: VITAL SIGNS: Afebrile vital signs stable GENERAL: Well-developed pleasant in no acute distress. HEENT: No scleral icterus. Extraocular movements grossly intact. Moist buccal mucosa. NECK: Supple without lymphadenopathy. CHEST: Unlabored respirations. Equal bilateral excursions. CARDIOVASCULAR: Regular rate regular rhythm rhythm. Distal 2+ pulses. ABDOMEN: Soft, nondistended. Tender along the epigastrium and right upper quadrant. MUSCULOSKELETAL: No clubbing, cyanosis, or edema. NEURO: Cranial nerves II to XII within normal limits. No focal or lateralizing signs. PSYCH: Alert and oriented to person, place and time. SKIN: Well-perfused good skin turgor. ASSESSMENT: 1. Epigastric and right upper quadrant abdominal pain 2. Chronic cholecystitis 3. Symptomatic gallstones. PLAN: 1. Will need a robotic cholecystectomy possible open. Benefits and risks were described. 2. Heparin for DVT prophylaxis 5000 units. 3. Antibiotic prophylaxis. 4. CBC and CMP on day of procedure 5. Non-narcotic pre and post op pain management reviewed. 6. Indocyanine green for biliary imaging. Past Medical History Past Medical History: GERD/Reflux, Hyperlipidemia Additional Past Medical History / Comment(s): Chronic back pain,ovarian cysts,SEASONAL ALLERGIES. mild upper abd pain with eating and some nausea. HX HEMMORHAGE POST GASTRIC SLEEVE-08/02/22. MIGRAINES. ENDOMETRIOSIS. INTERSTITAL CYSTITIS History of Any Multi-Drug Resistant Organisms: None Reported Past Surgical History: Appendectomy, Bariatric Surgery Additional Past Surgical History / Comment(s): MULTIPLE LaproscopIES, ovarian cysts removed, colonoscopy. PAIN CLINIC PROCEDURE, EGD, GASTRIC SLEEVE Past Anesthesia/Blood Transfusion Reactions: No Reported Reaction Smoking Status: Former smoker - Past Family History Mother Family Medical History: Cancer Medications and Allergies Home Medications Medication Instructions Recorded Confirmed Type Montelukast [Singulair] 10 mg PO HS 02/01/17 07/09/24 History Amitriptyline HCl [Elavil] 20 mg PO HS 08/13/20 07/09/24 History Fluticasone Nasal [place] [Flonase 1 spr EA NOSTRIL BID 08/13/20 07/09/24 History Nasal [place]] Loratadine [Claritin] 10 mg PO DAILY 08/13/20 07/09/24 History Rimegepant Sulfate [Nurtec Odt] 75 mg PO DAILY PRN 08/10/22 07/09/24 History Acetaminophen Tab [Tylenol] 1,000 mg PO Q6HR PRN #30 tablet 03/24/23 07/09/24 Rx Omeprazole [PriLOSEC] 40 mg PO DAILY #30 cap 03/24/23 07/09/24 Rx Atorvastatin Calcium 80 mg PO HS 12/21/23 07/09/24 History Calcium Carb-Vit D 250Mg-125Un 1 each PO BID 12/21/23 07/09/24 History [Oscal 250+D 3.125 Mcg (125 Iu)] Magnesium 500 mg PO DAILY 12/21/23 07/09/24 History Pentosan Polysulfate Sodium 100 mg PO BID 12/21/23 07/09/24 History [Elmiron] Vit No.179/Iron/Folic 1 each PO DAILY 12/21/23 07/09/24 History [ Tablet] Allergies Allergy/AdvReac Type Severity Reaction Status Date / Time niacin AdvReac flushing Verified 07/09/24 15:26 promethazine HCl AdvReac tremor/anxi Verified 07/09/24 15:26 [From Phenergan] ety
[2024-07-11] MEDS: IV FLUID CONTINUATION 1,000 ML IV ONE ×2 (11:25→14:21)
[2024-07-11] MEDS: LACTATED RINGERS 1,000 ML IV SCH (11:34)
[2024-07-11] MEDS: ONDANSETRON 4 MG/2 ML VIAL IVP ONE (11:35)
[2024-07-11] MEDS: ACETAMINOPHEN TAB 500 MG TAB PO PRN (11:35)
[2024-07-11] MEDS: DEXAMETHASONE SOD PHOSPHATE 4 MG/ML 1 ML VIAL IV ONE (11:36)
[2024-07-11] MEDS: HEPARIN SODIUM,PORCINE 5,000 UNIT/ML 1 ML VIAL SQ PRN (11:36)
[2024-07-11] MEDS: FAMOTIDINE 20 MG/2 ML VIAL IV STA (11:37)
[2024-07-11 11:40] LABS: Basophils # (A) 0.1 k/uL (0-0.2); Basophils % (A) 1 %; Eosinophils # (A) 0.1 k/uL (0-0.7); Eosinophils % (A) 1 %; HCT 42.6 % (34.0-46.0); HGB 14.3 gm/dL (11.4-16.0); Lymphocytes # (A) 2.2 k/uL (1.0-4.8); Lymphocytes % (A) 32 %; MCH 29.2 pg (25.0-35.0); MCHC 33.4 g/dL (31.0-37.0); MCV 87.5 fL (80.0-100.0); Mean Platelet Volume 6.9; Monocytes # (A) 0.4 k/uL (0-1.0); Monocytes % (A) 5 %; Neutrophils # (A) 3.9 k/uL (1.3-7.7); Neutrophils % (A) 58 %; Platelet Count 242 k/uL (150-450); RBC 4.87 m/uL (3.80-5.40); RDW 12.9 % (11.5-15.5); WBC 6.7 k/uL (3.8-10.6)
[2024-07-11] MEDS: MIDAZOLAM 2 MG/2 ML VIAL IV PRN (11:49)
[2024-07-11 12:00] VITALS: TEMP 98.5
[2024-07-11 12:20] LABS: ALT 28 U/L (4-34); African American GFR (CKD) >90 (>60 ml/min/1.73 sqM); Anion Gap 7 mmol/L; Blood Urea Nitrogen 8 mg/dL (7-17); Calcium 9.5 mg/dL (8.4-10.2); Carbon Dioxide 25 mmol/L (22-30); Chloride 107 mmol/L (98-107); Glucose 73 mg/dL (74-99); Non-African American GFR(CKD) >90 (>60 ml/min/1.73 sqM); Sodium 139 mmol/L (137-145); Total Bilirubin 0.9 mg/dL (0.2-1.3)
[2024-07-11 12:32] LABS: AST 39 U/L (14-36); Albumin 4.7 g/dL (3.5-5.0); Alkaline Phosphatase 84 U/L (38-126)
[2024-07-11] MEDS: LIDOCAINE 1%-EPI 1:100,000 20 ML VIAL SQ ONE (12:38)
[2024-07-11] MEDS: HYDROmorphone 0.5 MG/0.5 ML SYRINGE IVP PRN (13:31)
[2024-07-11] MEDS: ONDANSETRON 4 MG/2 ML VIAL IVP PRN (13:41)
[2024-07-11] MEDS: MEPERIDINE 50 MG/ML SYRINGE IVP STA (14:00)
[2024-07-11] MEDS: MEPERIDINE 25 MG/ML SYRINGE IVP ONE (14:29)
[2024-07-11] MEDS: diphenhydrAMINE 50 MG/ML 1 ML VIAL IVP STA (14:34)
[2024-07-11 14:59] VITALS: RESP 14
[2024-07-11 15:09] VITALS: BP 111/74; PULSE 98
--- NOTE | 2024-07-11 21:50 | P.OP ---
Date of Procedure: 07/11/24 Description of Procedure: SURGEON: HENNA FISHER MD PREOPERATIVE DIAGNOSES: 1. Chronic cholecystitis 2. Right upper quadrant abdominal pain 3. Status post sleeve gastrectomy 4. Obesity excess calories, BMI 32.0 5. History esophageal reflux disease 6. Seasonal allergies 7. Hyperlipidemia 8. Intractable nausea vomiting 9. Generalized anxiety disorder 10. Depressive disorder 11. Chronic back pain 12. Migraines 13. Endometriosis POSTOPERATIVE DIAGNOSES: 1. Chronic cholecystitis 2. Right upper quadrant abdominal pain 3. Status post sleeve gastrectomy 4. Obesity excess calories, BMI 32.0 5. History esophageal reflux disease 6. Seasonal allergies 7. Hyperlipidemia 8. Intractable nausea vomiting 9. Generalized anxiety disorder 10. Depressive disorder 11. Chronic back pain 12. Migraines 13. Endometriosis 14. Peritoneal adhesions with pericholecystic adhesions 15. Mildly patent abdomen with fatty liver disease OPERATION: 1. Robotic-assisted da Robert Xi laparoscopic lysis of adhesions over 50% of the case 2. Robotic-assisted da Robert Xi laparoscopic cholecystectomy, multiport with FIREFLY ESTIMATED BLOOD LOSS: 5 mL. SPECIMENS REMOVED: Gallbladder. COMPLICATIONS: None. OPERATIVE FINDINGS: 1. Moderate scarring over entire gallbladder with peritoneal adhesions, pericholecystic with features of chronic cholecystitis, over 50% of the case 2. Mildly cardiomegaly with fatty liver disease INDICATIONS: The patient is a 43-year-old female who presents with chronic cholecystitis including tractable nausea and vomiting, gastroesophageal reflux disease and history of sleeve gastrectomy status post weight loss. Robotic assisted laparoscopic approach was described. Benefits and risks of the procedure including but not limited to bleeding, infection, injury to the biliary tree was described. Informed consent was obtained. DESCRIPTION OF PROCEDURE: Patient was brought to the operating room, placed in supine position. After general induction, the abdomen had been prepped and draped in standard sterile fashion. The robotic da Robert XI system was primed. After a timeout protocol was performed, the patient had been prepped and draped in standard sterile fashion. The patient was injected with indocyanine green. A 5 mm 0 degrees laparoscopic trocar entry was performed along the left upper quadrant. The abdomen insufflated to 15 mmHg pressure which was tolerated well. Diagnostic laparoscopy demonstrated no injury to bowel viscera or mesentery. The liver surface was unremarkable. Next, two 8 mm robotic ports were placed along the right upper abdomen. The camera 8-mm port was maintained along the epigastrium. Another 8 mm port was placed along the left upper abdominal wall after exchanging the 5 mm port. Please note that the ports were placed at least 10 to 15 cm away from the target anatomy of the gallbladder. The robot was docked along the left lateral abdomen. The patient was repositioned in reverse Trendelenburg position. Using a grasper for arm 3, a grasper for arm 4, including hook cautery for arm 1, the robotic system was docked and primed as described. Instruments were interchanged by the legal document assistant including hook cautery, Bovie cautery and clip appliers. I had sat at the console. The gallbladder was scarred with peritoneal adhesions. Lysis of adhesions was performed to free the gallbladder from the surrounding tissues was performed using hook artery involving pericholecystic adhesions as well as right upper quadrant peritoneal adhesions over 50% of the case. Down technique was performed from the gallbladder fundus toward the infundibulum. Next attention was brought to the infundibulum and cystic structures. The infundibulum and cystic duct were dissected free from surrounding tissues. The cystic duct was isolated. FIREFLY was used to identify the cystic artery and cystic structures. A critical view of safety was obtained. Large PLASTIC clips were used throughout the entire case. Using a clip wood and wood products labourer, 3 clips were placed at the junction of the infundibulum and cystic duct. The cystic duct was divided between clips. Next, the cystic artery was cauterized. Electro-Bovie cautery was used to remove the gallbladder from the hepatic fossa. Hemostasis was checked and found to be adequate. The robot was undocked. I re-scrubbed into the case. Using a 10 mm Endo Catch bag via the left upper quadrant incision, the specimen was removed from the abdominal cavity. All pneumoperitoneum instruments were evacuated from the abdominal cavity. The incisions were reapproximated using 4-0 Monocryl in an interrupted subcuticular fashion. Fascial defects were less than 8 mm in size. Please note along the trocar sites, local anesthetic was placed as a field block prior to insertion of all instruments. Liquid glue was applied to the skin. At the end of the procedure needle, sponge, and instrument count had been verified correct by the surgical elastic knitter. The patient was transferred to postanesthesia care unit in stable condition. Intraoperative films were shared with the patient's family. Plan - Discharge Summary Discharge Rx Participant: No New Discharge Prescriptions: New Simethicone [Gas-X] 125 mg PO AC-TID PRN #20 capsule PRN Reason: Pain Acetaminophen Tab [Tylenol Tab] 1,000 mg PO Q6HR PRN #30 tablet PRN Reason: Pain Continue Montelukast [Singulair] 10 mg PO HS Fluticasone Nasal [place] [Flonase Nasal [place]] 1 spr EA NOSTRIL BID Loratadine [Claritin] 10 mg PO DAILY Amitriptyline HCl [Elavil] 20 mg PO HS Vit No.179/Iron/Folic [ Tablet] 1 each PO DAILY Atorvastatin Calcium 80 mg PO HS Rimegepant Sulfate [Nurtec Odt] 75 mg PO DAILY PRN PRN Reason: Migraine Headache Omeprazole [PriLOSEC] 40 mg PO DAILY #30 cap Acetaminophen Tab [Tylenol] 1,000 mg PO Q6HR PRN #30 tablet PRN Reason: Pain Calcium Carb-Vit D 250Mg-125Un [Oscal 250+D 3.125 Mcg (125 Iu)] 1 each PO BID Pentosan Polysulfate Sodium [Elmiron] 100 mg PO BID Magnesium 500 mg PO DAILY Discharge Medication List Montelukast [Singulair] 10 mg PO HS 02/01/17 [History] Amitriptyline HCl [Elavil] 20 mg PO HS 08/13/20 [History] Fluticasone Nasal [place] [Flonase Nasal [place]] 1 spr EA NOSTRIL BID 08/13/20 [History] Loratadine [Claritin] 10 mg PO DAILY 08/13/20 [History] Rimegepant Sulfate [Nurtec Odt] 75 mg PO DAILY PRN 08/10/22 [History] Acetaminophen Tab [Tylenol] 1,000 mg PO Q6HR PRN #30 tablet 03/24/23 [Rx] Omeprazole [PriLOSEC] 40 mg PO DAILY #30 cap 03/24/23 [Rx] Atorvastatin Calcium 80 mg PO HS 12/21/23 [History] Calcium Carb-Vit D 250Mg-125Un [Oscal 250+D 3.125 Mcg (125 Iu)] 1 each PO BID 12/21/23 [History] Magnesium 500 mg PO DAILY 12/21/23 [History] Pentosan Polysulfate Sodium [Elmiron] 100 mg PO BID 12/21/23 [History] Vit No.179/Iron/Folic [ Tablet] 1 each PO DAILY 12/21/23 [History] Acetaminophen Tab [Tylenol Tab] 1,000 mg PO Q6HR PRN #30 tablet 07/11/24 [Rx] Simethicone [Gas-X] 125 mg PO AC-TID PRN #20 capsule 07/11/24 [Rx] Follow up Appointment(s)/Referral(s): Henna Fisher MD [STAFF PHYSICIAN] - 07/15/24 6:00 pm (Telehealth) Patient Instructions/Handouts: *[facility] - Managing Your Pain After Surgery Without Opioids, *[facility] - (Anesthesia) Discharge Instructions Outpatient Surgery, Low Fat Diet (DC), Laparoscopic Cholecystectomy (DC) Activity/Diet/Wound Care/Special Instructions: TELEHEALTH - DR WILL CALL YOU BETWEEN 9 am to 8 pm NO LONG DRIVES OR AIRPLANE RIDES OVER 60 MINUTES FOR THE NEXT 2 WEEKS, 07/25/24, DUE TO HIGH RISK OF PULMONARY EMBOLISM/DVTs May drive in 72 hrs, 07/13/24 Recommend low-fat diet for the next 2 days. No lifting over 10 pounds in 2 weeks until 07/25/24 May shower. No bath tub soaks for two weeks until 07/25/24 Diet as tolerated. Use Tylenol, simethicone scheduled for the next 24-48 hours for best pain re lief. Use ice along incisions for today to prevent swelling. Discharge Disposition: HOME SELF-CARE
== END | disposition home or self-care (01) ==
LOC: OR 10:28
PROVIDERS: ATTEND Surgery Plastic and Reconstructive Surgery
DX: K81.1 Chronic cholecystitis (principal); E66.811 Obesity, class 1; E78.5 Hyperlipidemia, unspecified; F32.A Depression, unspecified; F41.1 Generalized anxiety disorder; G89.29 Other chronic pain; K21.9 Gastro-esophageal reflux disease without esophagitis; J30.2 Other seasonal allergic rhinitis; K66.0 Peritoneal adhesions (postprocedural) (postinfection); N80.9 Endometriosis, unspecified; K76.0 Fatty (change of) liver, not elsewhere classified; Z68.32 Body mass index [BMI] 32.0-32.9, adult; Z79.899 Other long term (current) drug therapy; Z87.891 Personal history of nicotine dependence; Z88.8 Allergy status to other drugs, medicaments and biological substances; Z90.49 Acquired absence of other specified parts of digestive tract; Z98.84 Bariatric surgery status
CPT/HCPCS: 47562; S2900; 80053; 81025; 85025; 88304

== ENCOUNTER → 2024-07-18 | Outpatient (CLI) | payer OTHER ==
--- NOTE | 2024-07-18 09:51 | FL ---
EXAMINATION TYPE: FL barium swallow DATE OF EXAM: 07/18/2024 COMPARISON: CLINICAL INDICATION: Female, 43 years old with history of R13.10 DYSPHAGIA, UNSPECIFIED; PHH, TECHNIQUE: A double contrast esophagram is performed utilizing air and barium. A total of 1 minute and 8 seconds of fluoroscopic time was utilized during procedure and 29 images obtained. Total dose area product (DAP) in uGy*m?, mGy*cm? (or similar) Provided. COMPARISON: None FINDINGS: The esophagus shows normal motility and emptying into the stomach. No evidence of hiatal h ernia or stricture noted. No significant gastroesophageal reflux was seen during real time performanc e of this study. IMPRESSION: No significant abnormality is seen to account for patient's symptoms. [facility], , 07/18/2024 9:49 AM
== END | disposition home or self-care (01) ==
LOC: RADFLMAIN 08:57
PROVIDERS: ATTEND Surgery Plastic and Reconstructive Surgery
DX: R13.10 Dysphagia, unspecified (principal)
CPT/HCPCS: 74220

== ENCOUNTER → 2024-08-05 | Outpatient (CLI) | payer OTHER ==
[2024-08-05 11:47] VITALS: BP 96/62; PULSE 80; RESP 16
--- NOTE | 2024-08-05 15:43 | P.PAINPG ---
PQRS Measure Charge Sheet Comment: HISTORY OF PRESENT ILLNESS: A 43 yr old female presents today w severe and chronic LBP > 1 yr secondary to radiculopathy, spondylosis and facet arthropathy without myelopathy for evaluation. Pt states pain level is provoked at 6 /10 in intensity, constant, localized in the lower lumbar spine, predominantly axial, sharp in character w occasional shooting pain towards the hips, buttocks and LEs. Pain is provoked by sitting/ walking for periods > 20 min. Pain is alleviated by PT x 6-8 wks in 2022, chiropractic treatments monthly x 1 yr w last visit in Sep 2023, physician guided home exercises/ stretches 5 times weekly since Jul 2023, heat, ice, medications, topical, repositioning and rest . Interventional procedures include BL SI injection x1 (Dec 2023), BL TFESI L5-S1 x1 (Jan 2024) Medications include Tyl, CBD Oil REVIEW OF ORGAN SYSTEMS: CONSTITUTIONAL: No fevers or chills. No recent weight loss. NEUROLOGICAL: + numbness and tingling along the distal extremities. No seizure disorders or headaches. MUSCULOSKELETAL: + pain PSYCHIATRIC: Denies current depression or suicidal thoughts. Physical Examinations : Constitutional : Cooperative , not in acute distress . Neurologic : Cranial nerve II to XII intact. No focal anthony rological deficits. Psychiatric : alert & oriented x 3. Matching mood & appropriate affect. Judgment & insight intact. Musculoskeletal : Cervical Spine Motor strength in the deltoid and biceps: Normal right side. Normal Left side Motor strength biceps and the wrist extensors: Normal right side . Normal left side Motor strength in the triceps muscle: Normal right side. Normal left side Deep tendon reflexes: Normal at the biceps. Normal at Brachioradialis. Normal at triceps Vertebral body tenderness to deep pal pation over Cervical facet loading test: positive bilaterally Spurling test: positive bilaterally Neck distraction test: positive bilaterally Renee sign: positive bilaterally Lumbar spine Motor strength lower extremities ,thigh and legs 5/5 Right side , 5/5 Left side Deep tendon reflexes : Normal Knee Jerk. Normal Ankle Jerk Vertebral body tenderness over L5 Kidd Test positive BL L5-S1 L> R Lumbar facet Loading Test: positive Right / positive Left Range of motion of the lumbar spine Flexion 30 degrees, extension 10 degrees Straight Leg Raise test: Left/ Right positive at degrees Rohith test: positive right / positive left. Severe tenderness over the Sacroiliac joint on the Right / Left sides Gaenslen test: positive bilaterally Seated flexion test: positive bilaterally. Sacral spine : Severe tenderness over the Sacroiliac joint: right side / left side Range of motion: Flexion of the lumbar spine <60 degrees Range of motion: Extension of the lum bar spine <20 degrees Gaenslen's Test positive L Rohith test: positive right side < left side Thigh Thrust Test +L positive Sacral Thrust Test Imaging: MRI noncontrast of the lumbar spine from 11/06/2023 reviewed Assessment/ Plan : Lumbar radiculopathy, BL Sacroiliitis Recommendation of L SI #1. Risks, benefits of procedure discussed and patient verbalized understanding. Admits to anti- coagulant use or medical history of diabetes. Protocol for discontinuation/ continuation of medications annel procedure discussed. All questions answered. I have spent greater than 30 minutes on patient care today. Dr Lyle was available by phone for the evaluation of this patient. The time was used to review the medical records including relevant urine studies and Prescription history (MAPs), review of the available imaging, evaluation and examination of the patient, coordination of care with the medical staff and if applicable refer ring physicians, as well as creation of the medical record PQRS Narrative: Smoking Status Former smoker Hx Alcohol Use (MH) Yes: rare Home Medications: Ambulatory Orders Montelukast [Singulair] 10 mg PO HS 02/01/17 Amitriptyline HCl [Elavil] 20 mg PO HS 08/13/20 Fluticasone Nasal [place] [Flonase Nasal [place]] 1 spr EA NOSTRIL BID 08/13/20 Loratadine [Claritin] 10 mg PO DAILY 08/13/20 Rimegepant Sulfate [Nurtec Odt] 75 mg PO DAILY PRN 08/10/22 Acetaminophen Tab [Tylenol] 1,000 mg PO Q6HR PRN #30 tablet 03/24/23 Omeprazole [PriLOSEC] 40 mg PO DAILY #30 cap 03/24/23 Atorvastatin Calcium 80 mg PO HS 12/21/23 Calcium Carb-Vit D 250Mg-125Un [Oscal 250+D 3.125 Mcg (125 Iu)] 1 each PO BID 12/21/23 Magnesium 500 mg PO DAILY 12/21/23 Pentosan Polysulfate Sodium [Elmiron] 100 mg PO BID 12/21/23 Vit No.179/Iron/Folic [ Tablet] 1 each PO DAILY 12/21/23 Acetaminophen Tab [Tylenol Tab] 1,000 mg PO Q6HR PRN #30 tablet 07/11/24 Simethicone [Gas-X] 125 mg PO AC-TID PRN #20 capsule 07/11/24 Controlled Substance Measures - Controlled Substance Measures Is patient prescribed a controlled substance at discharge?: No
== END ==
LOC: PNWHC3 10:09
PROVIDERS: ATTEND Specialist
DX: M54.16 Radiculopathy, lumbar region (principal); M46.1 Sacroiliitis, not elsewhere classified; Z88.8 Allergy status to other drugs, medicaments and biological substances; Z88.1 Allergy status to other antibiotic agents; Z87.891 Personal history of nicotine dependence
CPT/HCPCS: 99211

== ENCOUNTER 2024-08-20 08:09 | Day surgery (SDC) | payer OTHER ==
[2024-08-20 08:52] VITALS: RESP 18; TEMP 98.3
[2024-08-20] MEDS: IV FLUID CONTINUATION 1,000 ML IV ONE ×2 (09:00→09:59)
[2024-08-20] MEDS: LACTATED RINGERS 1,000 ML IV SCH (09:00)
[2024-08-20] MEDS ORDERED: MIDAZOLAM 2 MG/2 ML VIAL ONE (09:44)
[2024-08-20] MEDS ORDERED: fentaNYL (PF) 50 MCG/ML 2 ML AMP ONE (09:44)
[2024-08-20] MEDS ORDERED: methylPREDNISolone ACETATE 80 MG/ML 1 ML VIAL ONE (09:44)
[2024-08-20] MEDS ORDERED: IOPAMIDOL M200 10 ML VIAL ONE (09:44)
[2024-08-20] MEDS ORDERED: ROPIVACAINE 5MG/ML 20ML VIAL ONE (09:44)
--- NOTE | 2024-08-20 09:55 | P.PCN ---
Date of Procedure: 08/20/24 Procedure(s) Performed: Procedure= Left sacroiliac joints steroid injection under fluoroscopy guidance (fluoroscopy image stored on file in the radiology Department ) Preoperative diagnosis= 1-sacroiliitis Postoperative diagnosis=Same as preop Diagnosis . Complication = none Condition= stable Anesthesia= moderate sedation with Versed 2 mg and fentanyl 100 mcg . (Sedation start time 09:44 , end time 09:50 ) Indication for the procedure= patient complaining of low back pain , examination was positive for severe tenderness over the Left sacroiliac joints , and patient diagnosed with sacroiliitis, for this reason she was good candidate for Left sacroiliac joint steroid injection. Description of the procedure= procedure risk and benefits discussed with the patient, including but not limited, risk of infection and bleeding, and ALLERGIC reaction to the medication and not complete pain relief and patient agreed with the preceding patient taken to the operating room, placed in prone position or standard monitors applied to the patient then after induction of anesthesia back prepped with chlorhexidine 3 times , the left sacroiliac joint steroid injection done under strict sterile technique local infiltration of the skin and subcu interstitial at the location of the left sacroiliac joint then a 22-gauge Quincke Needle advanced slowly under fluoroscopy time placed in the left sacroiliac joint, needle placement confirmed with AP and oblique and lateral view then after appropriate needle placement confirmed, with the AP and oblique and lateral then after negative aspiration Isovue 200 1 mL injected showed arthropathy of the left sacroiliac joint, and after negative aspiration 0.5% Ropivacaine 3 mL and 60 mg of Depo-Medrol injected in the left sacroiliac joint after negative aspiration patient tolerated the procedure well that any complications and she will follow up in clinic 3 weeks
--- NOTE | 2024-08-20 10:13 | FL ---
Intraoperative/procedural fluoroscopic services were provided for SI joint injection. Total fluorosco py time is 4.1 seconds with a total of 2 submitted images to PACS. Total DAP 0.77579 mGym2. Please s ee the operative note for further details. [facility], , 08/20/2024 10:11 AM
[2024-08-20 10:19] VITALS: BP 103/59; PULSE 82
== END 2024-08-20 10:34 | disposition home or self-care (01) ==
LOC: ORPAIN 08:09
PROVIDERS: ATTEND Specialist
DX: M46.1 Sacroiliitis, not elsewhere classified (principal)
CPT/HCPCS: 81025; 27096; J2250; J3010; Q9966; J2795; J1010

== ENCOUNTER 2024-09-13 11:17 | Day surgery (SDC) | payer OTHER ==
[2024-09-13 11:57] VITALS: TEMP 98
[2024-09-13] MEDS: LACTATED RINGERS 1,000 ML IV ONE (12:20)
[2024-09-13] MEDS: LACTATED RINGERS 1,000 ML IV SCH (12:55)
[2024-09-13] MEDS ORDERED: IOPAMIDOL M200 10 ML VIAL ONE (13:30)
[2024-09-13] MEDS ORDERED: fentaNYL (PF) 50 MCG/ML 2 ML AMP ONE (13:30)
[2024-09-13] MEDS ORDERED: methylPREDNISolone ACETATE 80 MG/ML 1 ML VIAL ONE (13:30)
[2024-09-13] MEDS ORDERED: MIDAZOLAM 2 MG/2 ML VIAL ONE (13:30)
--- NOTE | 2024-09-13 13:41 | P.PCN ---
Date of Procedure: 09/13/24 Procedure(s) Performed: PREOPERATIVE DIAGNOSIS: 1- Lumbar radiculopathy POSTOPERATIVE DIAGNOSIS: 1-lumbar radiculopathy PROCEDURE 1. Lumbar epidural steroid injection under fluoroscopic guidance at the L4-5 level. (Fluoroscopy imaging was available in radiology department) 2. Lumbar epidurogram. ANESTHESIA: Moderate sedation with Versed 2 mg and fentanyl 100 mcg , sedation was started at 13:30 ,ended at 13:37. EBL: Minimal PROCEDURE INDICATION: The patient with low back pain and radiculitis symptoms unresponsive to conservative treatment. Fluoroscopy was used to optimize visualization of the needle placement and to maximize safety. PROCEDURE DESCRIPTION / TECHNIQUE: The patient was seen and identified in the preoperative area. Risks, benefits, complications including but not limited to infections ,bleeding ,allergic reaction to the medications ,nerve damage and not complete pain releife , and alternatives were discussed with the patient. The patient agreed to proceed with the procedure and signed the consent, and vital signs were stable. Patient was taken to the OR and time out was completed. The patient was placed in the prone position on procedure table and a pillow was placed under the abdomen to reduce lumbar lordosis. The lumbosacral area was prepped and draped in the usual sterile fashion.ere closely monitored during the procedure. Vital signs was monitered during the entire procedure seadations was used to decrease the patient's anxiety. Using anterior-posterior fluoroscopy, the L4-5 interlaminar space was identified and the skin over this site was marked and then infiltrated with 1% lidocaine subcutaneously. Subsequently, a 20-gauge Tuohy epidural needle was inserted and advanced toward the epidural space using the ``Loss of resistance technique and guided by AP and lateral fluoroscopy. The correct needle position in the epidural space was verified with the injection of 2 mL of the water soluble contrast dye Isovue 200 contrast and observing an excellent epidurogram with the epidural spread of the dye, after negative aspiration for blood and CSF and in the absence of paresthesias. Again after negative aspiration, a 6 ml mixture containing 80 mg of Depo-medrol ( Preservetive Free ), and 2 ml of preservative free Normal Saline, and 2 ml of preservative free lidocaine 1% solution was injected and a washout of epidurogram was seen. Needle was withdrawn intact, skin was cleansed, and bandages were applied. COMPLICATIONS: None DISPOSITION / PLANS: The patient was placed in a supine position and transferred to the recovery area in a stable condition for observation. There was no evidence of lower extremity motor or sensory deficit after the procedure. Patient was discharged from the recovery room after meeting discharge criteria. Home discharge instructions were given to the patient by the staff. The patient was reexamined prior to discharge. The patient will schedule a follow up in the clinic in 2-4 weeks.
[2024-09-13] MEDS: IV FLUID CONTINUATION 1,000 ML IV ONE (13:47)
--- NOTE | 2024-09-13 13:49 | FL ---
Fluoroscopy INDICATION: Pain FINDINGS: Fluoroscopy time: 1.9 seconds. Total dose area product (DAP) in uGy*m?, mGy*cm? (or similar): 0.76355 Images obtained: 2. Images document needle directed towards the lumbar spine IMPRESSION: 1. Documentation of fluoroscopy. [facility], , 09/13/2024 1:47 PM
[2024-09-13 13:53] VITALS: RESP 18
[2024-09-13 14:10] VITALS: BP 102/57; PULSE 73
== END 2024-09-13 14:24 | disposition home or self-care (01) ==
LOC: ORPAIN 11:17
PROVIDERS: ATTEND Specialist
DX: M54.16 Radiculopathy, lumbar region (principal); Z88.1 Allergy status to other antibiotic agents; Z88.8 Allergy status to other drugs, medicaments and biological substances
CPT/HCPCS: 81025; 62323; J2250; J3010; Q9966; J1010

== ENCOUNTER → 2024-09-30 | Outpatient (CLI) | payer OTHER ==
[2024-09-30 08:28] VITALS: BP 109/76; PULSE 92; RESP 16; TEMP 97.3
--- NOTE | 2024-09-30 16:49 | P.PAINPG ---
PQRS Measure Charge Sheet Comment: HISTORY OF PRESENT ILLNESS: A 43 yr old female presents today w severe and chronic LBP > 1 yr secondary to radiculopathy, spondylosis and facet arthropathy without myelopathy for evaluation s/p TWILA L4-L5 #1. Pt states she experienced 50 % pain relief x 2-3 wks s/p procedure. Pt states pain level is provoked at 7 /10 in intensity, intermittent, localized in the lower lumbar spine, L> R, predominantly axial, sharp in character without shooting pain. Pain is provoked by walking for periods > 20 min. Pain is alleviated by PT x 6-8 wks in 2022, chiropractic treatments monthly x 1 yr w last visit in Jul 2024, physician guided home exercises/ stretches 5 times weekly since Jul 2023, heat, ice, medications, topical, repositioning and rest . Interventional procedures include BL SI injection x1 (Dec 2023), BL TFESI L5-S1 x1 (Jan 2024), L SI x1 Medications include Tyl, CBD Oil REVIEW OF ORGAN SYSTEMS: CONSTITUTIONAL: No fevers or chills. No recent weight loss. NEUROLOGICAL: + numbness and tingling along the distal extremities. No seizure disorders or headaches. MUSCULOSKELETAL: + pain PSYCHIATRIC: Denies current depression or suicidal thoughts. Physical Examinations : Constitutional : Cooperative , not in acute distress . Neurologic : Cranial nerve II to XII intact. No focal neurological deficits. Psychiatric : alert & oriented x 3. Matching mood & appropriate affect. Judgment & insight intact. Musculoskeletal : Cervical Spine Motor strength in the deltoid and biceps: Normal right side. Normal Left side Motor strength biceps and the wrist extensors: Normal right side . Normal left side Motor strength in the triceps muscle: Normal right side. Normal left side Deep tendon reflexes: Normal at the biceps. Normal at Brachioradialis. Normal at triceps Vertebral body tenderness to deep palpation over Cervical facet loading test: positive bilaterally Spurling test: positive bilaterally Neck distraction test: positive bilaterally Renee sign: positive bilaterally Lumbar spine Motor strength lower extremities ,thigh and legs 5/5 Right side , 5/5 Left side Deep tendon reflexes : Normal Knee Jerk. Normal Ankle Jerk Vertebral body tenderness over L4 Kidd Test positive BL L5-S1 L> R Lumbar facet Loading Test: positive Right < positive Left L5-S1 Range of motion of the lumbar spine Flexion 30 degrees, extension 10 degrees Straight Leg Raise test: Left/ Right positive at <35 degrees Rohith test: positive right / positive left. Severe tenderness over the Sacroiliac joint on the Right / Left sides Gaenslen test: positive bilaterally Seated flexion test: positive bilaterally. Sacral spine : Severe tenderness over the Sacroiliac joint: right side / left side Range of motion: Flexion of the lumbar spine <60 degrees Range of motion: Extension of the lumbar spine <20 degrees Gaenslen's Test positive L Rohith test: positive right side < left side Thigh Thrust Test +L positive Sacral Thrust Test Imaging: MRI noncontrast of the lumbar spine from 11/06/2023 reviewed Assessment/ Plan : Lumbar radiculopathy, BL Sacroiliitis Recommendation of L MBB L5-S1 #1. Risks, benefits of procedure discussed and patient verbalized understanding. Protocol for discontinuation/ continuation of medications annel procedure discussed. Minimal anesthesia including Fentanyl and Versed if clinically indicated. All questions answered. I have spent greater than 30 minutes on patient care today. Dr Lyle was available by phone for the evaluation of this patient. The time was used to revi ew the medical records including relevant urine studies and Prescription history (MAPs), review of the available imaging, evaluation and examination of the patient, coordination of care with the medical staff and if applicable referring physicians, as well as creation of the medical record PQRS Narrative: Smoking Status Former smoker Hx Alcohol Use (MH) Yes: rare Home Medications: Ambulatory Orders Montelukast [Singulair] 10 mg PO HS 02/01/17 Amitriptyline HCl [Elavil] 20 mg PO HS 08/13/20 Fluticasone Nasal [place] [Flonase Nasal [place]] 1 spr EA NOSTRIL BID 08/13/20 Loratadine [Claritin] 10 mg PO DAILY 08/13/20 Rimegepant Sulfate [Nurtec Odt] 75 mg PO DAILY PRN 08/10/22 Acetaminophen Tab [Tylenol] 1,000 mg PO Q6HR PRN #30 tablet 03/24/23 Omeprazole [PriLOSEC] 40 mg PO DAILY #30 cap 03/24/23 Atorvastatin Calcium 80 mg PO HS 12/21/23 Calcium Carb-Vit D 250Mg-125Un [Oscal 250+D 3.125 Mcg (125 Iu)] 1 each PO BID 05/30/24 Magnesium 500 mg PO DAILY 12/21/23 Pentosan Polysulfate Sodium [Elmiron] 100 mg PO BID 12/21/23 Vit No.179/Iron/Folic [ Tablet] 1 each PO DAILY 12/21/23 Controlled Substance Measures - Controlled Substance Measures Is patient prescribed a controlled substance at discharge?: No
== END ==
LOC: PNWHC3 08:05
PROVIDERS: ATTEND Specialist
DX: M54.16 Radiculopathy, lumbar region (principal); M46.1 Sacroiliitis, not elsewhere classified; F12.90 Cannabis use, unspecified, uncomplicated; Z88.8 Allergy status to other drugs, medicaments and biological substances; Z88.5 Allergy status to narcotic agent
CPT/HCPCS: 99211

== ENCOUNTER 2024-10-22 08:09 | Day surgery (SDC) | payer OTHER ==
[2024-10-18 14:59] VITALS: BMI 31.1
[2024-10-22] MEDS: IV FLUID CONTINUATION 1,000 ML IV ONE ×3 (08:40→09:46)
[2024-10-22 08:42] VITALS: TEMP 97
[2024-10-22] MEDS: LACTATED RINGERS 1,000 ML IV SCH (08:52)
[2024-10-22] MEDS ORDERED: MIDAZOLAM 2 MG/2 ML VIAL ONE (09:30)
[2024-10-22] MEDS ORDERED: ROPIVACAINE 5MG/ML 20ML VIAL ONE (09:30)
[2024-10-22] MEDS ORDERED: fentaNYL (PF) 50 MCG/ML 2 ML AMP ONE (09:30)
--- NOTE | 2024-10-22 09:43 | P.PCN ---
Date of Procedure: 10/22/24 Procedure(s) Performed: PREOPERATIVE DIAGNOSIS : 1- Lumbar spondylosis with Facet Arthropathy with out myelopathy . 2- Lumber radiculopathy POSTOPERATIVE DIAGNOSIS: 1- Lumbar spondylosis with Facet Arthropathy without myelopathy . 2- Lumber radiculopathy PROCEDURE: Diagnostic bilateral L4 , L5 medial branch block under fluoroscopy guidance(fluoroscopy images available in the radiology Department ) ( To target the facet joint between Bilateral L5-S1 )#1st ANESTHESIA:moderate sedation with intravenous Versed 4 mg and Fentanyl 100 mcg.(sedations start time 09:30, time 09:38 ) EBL: Minimal COMPLICATION: None PROCEDURE INDICATION: Chronic low back pain secondary to Facet arthropathy unresponsive to conservative treatment. PROCEDURE DESCRIPTION: the patient was seen and identified in the preop holding area , risks and benefits and possible complications of the procedure and alternative were discussed with the patient, and the patient agreed to proceed with the procedure and signed the consent and vital signs monitored during the procedure and fluoroscopy was used to maximize the benefit and accuracy of the needle placement, and sedation was given to decrease patient anxiety, patient was taken to the procedure room and placed in prone position vital signs monitored in the back prepped with chlorhexidine X3 then under strict sterile technique using a right oblique fluoroscopy ,the junction of the transverse process and the superior articulating process of the right L4 , and L5 vertebra which corresponding to the fluoroscopy image of the eye of the Fabina dog on the block side for the medial branches and subsequently , after local infiltration of skin and subcu tissuies with Ropivacaine 0.5 % , one mL at each level ,then 23-gauge Quincke-type needles , 3 needle was used , each one of them placed at the junction of the base of the transverse process and the superior articular process at the appropriate level, and the needle was advanced until the periosteum contacted, needle placement confirmed with AP oblique and lateral view and after appropriate needle placement confirmed, and after negative aspiration for heme and CSF and there was no paresthesia 1mL of Ropivacaine 0.5% , then half mL injected at each level after negative aspiration the needle subsequently removed and the same procedure repeated for the left side at left side at L4 and L5 levels. At the end of the procedure and the needles removed and a bandage applied after the skin was cleaned the cleaning solution patient taken to recovery room in stable condition and monitors in the recovery room for 20-30 minutes and discharged home in stable condition after discharge criteria met and patient will follow up with the pain clinic in 2-4 weeks
[2024-10-22 09:53] VITALS: RESP 16
--- NOTE | 2024-10-22 09:56 | FL ---
EXAMINATION TYPE: FL guided pain mgmt statistic DATE OF EXAM: 10/22/2024 CLINICAL INDICATION: Female, 44 years old with history of FACET BLICK CARLOS LUM; PHH, pain. TECHNIQUE: Fluoroscopy. COMPARISON: None. FINDINGS: Fluoroscopic guidance was provided during pain relief procedure performed by Dr. Lyle . A total of 6.9 seconds of fluoroscopic time was utilized during the procedure and 5 spot images ar e acquired. Images acquired shows needle localization at several levels in the lumbar spine. Multile esperanza degenerative changes are present. Total DAP: 0.41416 mGym2. IMPRESSION: As Above. [facility], , 10/22/2024 9:54 AM
[2024-10-22 10:04] VITALS: BP 131/76; PULSE 65
== END 2024-10-22 10:30 ==
LOC: ORPAIN 08:09
PROVIDERS: ATTEND Specialist
DX: M47.26 Other spondylosis with radiculopathy, lumbar region (principal); G89.29 Other chronic pain; Z88.1 Allergy status to other antibiotic agents; Z88.8 Allergy status to other drugs, medicaments and biological substances
CPT/HCPCS: 81025; 64493; J2250; J3010; J2795

== ENCOUNTER 2024-10-23 08:16 | Emergency (ER) | payer OTHER ==
[2024-10-23] MEDS: SODIUM CHLORIDE 0.9% 1,000 ML IV ONE (09:05)
--- NOTE | 2024-10-23 09:05 | ED ---
Back Pain HPI - General Chief Complaint: Back Pain/Injury Stated Complaint: lower back pain Time Seen by Provider: 10/23/24 08:32 Source: patient, RN notes reviewed, old records reviewed Limitations: no limitations - History of Present Illness Initial Comments: This is a 44 female to the ER for evaluation acute on chronic back pain. Patient also feels like he is having some left-sided flank pain and kidney pain, no dysuria concern for may have blood in her urine never had pain like this before no history of kidney stones with pain is severe MD Complaint: back pain, other (Left flank pain left back pain) -: days(s) Similar Symptoms Previously: Yes Place: home Radiation: none Severity: severe Severity scale (1-10): 10 Quality: sharp Consistency: constant Improves With: none Worsens With: none Associated Symptoms: denies other symptoms - Related Data Home Medications Medication Instructions Recorded Confirmed Montelukast [Singulair] 10 mg PO HS 02/01/17 10/22/24 Amitriptyline HCl [Elavil] 20 mg PO HS 08/13/20 10/22/24 Fluticasone Nasal [place] [Flonase 1 spr EA NOSTRIL BID 08/13/20 10/22/24 Nasal [place]] Loratadine [Claritin] 10 mg PO DAILY 08/13/20 10/22/24 Rimegepant Sulfate [Nurtec Odt] 75 mg PO DAILY PRN 08/10/22 10/22/24 Atorvastatin Calcium 80 mg PO HS 12/21/23 10/22/24 Calcium Carb-Vit D 250Mg-125Un 1 each PO BID 12/21/23 10/22/24 [Oscal 250+D 3.125 Mcg (125 Iu)] Magnesium 500 mg PO DAILY 12/21/23 10/22/24 Pentosan Polysulfate Sodium 100 mg PO BID 12/21/23 10/22/24 [Elmiron] Vit No.179/Iron/Folic 1 each PO DAILY 12/21/23 10/22/24 [ Tablet] Previous Rx's Medication Instructions Recorded Acetaminophen Tab [Tylenol] 1,000 mg PO Q6HR PRN #30 tablet 03/24/23 Omeprazole [PriLOSEC] 40 mg PO DAILY #30 cap 03/24/23 Allergies Allergy/AdvReac Type Severity Reaction Status Date / Time niacin AdvReac flushing Verified 10/23/24 08:22 promethazine HCl AdvReac tremor/anxi Verified 10/23/24 08:22 [From Phenergan] ety Review of Systems ROS Statement: Those systems with pertinent positive or pertinent negative responses have been documented in the HPI. ROS Other: All systems not noted in ROS Statement are negative. Past Medical History Past Medical History: GERD/Reflux Additional Past Medical History / Comment(s): Chronic back pain, ovarian cysts, SEASONAL ALLERGIES. HX HEMORRHAGE POST GASTRIC SLEEVE-08/02/22, MIGRAINES, ENDOMETRIOSIS, INTERSTITAL CYSTITIS History of Any Multi-Drug Resistant Organisms: None Reported Past Surgical History: Appendectomy, Bariatric Surgery, Cholecystectomy, Hernia Repair Additional Past Surgical History / Comment(s): MULTIPLE Laproscopies, ovarian cysts removed, colonoscopy. PAIN CLINIC PROCEDURE, EGD, GASTRIC SLEEVE, cholecystectomy 2023, EGD, REAPIR HIATAL HERNIA Past Anesthesia/Blood Transfusion Reactions: No Reported Reaction Past Psychological History: Anxiety, Depression Smoking Status: Former smoker Past Alcohol Use History: Rare Past Drug Use History: Marijuana - Past Family History Mother Family Medical History: Cancer General Exam Limitations: no limitations General appearance: alert, in no apparent distress Head exam: Present: atraumatic, normocephalic, normal inspection Eye exam: Present: normal appearance, PERRL, EOMI. Absent: scleral icterus, conjunctival injection, periorbital swelling ENT exam: Present: normal exam, mucous membranes moist Neck exam: Present: normal inspection. Absent: tenderness, meningismus, lymphadenopathy Respiratory exam: Present: normal lung sounds bilaterally. Absent: respiratory distress, wheezes, rales, rhonchi, stridor Cardiovascular Exam: Present: regular rate, normal rhythm, normal heart sounds. Absent: systolic murmur, diastolic murmur, rubs, gallop, clicks GI/Abdominal exam: Present: soft, normal bowel sounds. Absent: distended, tenderness, guarding, rebound, rigid Extremities exam: Present: normal inspection, full ROM, normal capillary refill. Absent: tenderness, pedal edema, joint swelling, calf tenderness Back exam: Present: normal inspection Neurological exam: Present: alert, oriented X3, CN II-XII intact Psychiatric exam: Present: normal affect, normal mood Skin exam: Present: warm, dry, intact, normal color. Absent: rash Course Vital Signs 10/23/24 10/23/24 10/23/24 08:20 10:33 10:58 Temperature 97.7 F 98.1 F Pulse Rate 84 72 68 Respiratory 18 20 20 Rate Blood Pressure 116/77 121/85 122/85 O2 Sat by Pulse 98 99 100 Oximetry 10/23/24 11:16 Temperature 98.2 F Pulse Rate 71 Respiratory 20 Rate Blood Pressure 120/82 O2 Sat by Pulse 99 Oximetry - Reevaluation(s) Reevaluation #1: 10/23/24 10:34 Medical records reviewed Reevaluation #2: 10/23/24 10:34 Patient symptoms unchanged Pain is difficult to control Patient currently does have adequate pain control after second medication Reevaluation #3: 10/23/24 10:35 Patient informed of results questions answered Reevaluation #4: Was pt. sent in by a medical professional or institution (, [facility], COMBINING MACHINE OPERATOR, urgent care, hospital, or shelter...) When possible be specific @ -no Did you speak to anyone other than the patient for history (EMS, parent, family, police, friend...)? What history was obtained from this source @ -no Did you review nursing and triage notes (agree or disagree)? Why? @ -agree Are old charts reviewed (outside hosp., previous admission, EMS record, old EKG, old radiological studies, urgent care reports/EKG's, shelter records)? Report findings @ -yes Differential Diagnosis (chest pain, altered mental status, abdominal pain women, abdominal pain men, vaginal bleeding, weakness, fever, dyspnea, syncope, headache, dizziness, GI bleed, back pain, seizure, CVA, palpatations, mental health, musculoskeletal)? @ -prior EKG interpreted by me (3pts min.). @ -no X-rays interpreted by me (1pt min.). @ -no CT interpreted by me (1pt min.). @ -yes negative for acute disease U/S interpreted by me (1pt. min.). @ -no What testing was considered but not performed or refused? (CT, X-rays, U/S, labs)? Why? @ -none What meds were considered but not given or refused? Why? @ -none Did you discuss the management of the patient with other professionals (professionals i.e. Dr., PA, COMBINING MACHINE OPERATOR, lab, RT, psych nurse, social worker clinical, as400 programmer, teacher, alumni relations officer, patient case coordinator)? Give summary @ -no Was smoking cessation discussed for >3mins.? @ -no Was critical care preformed (if so, how long)? @ -no Were there social determinants of health that impacted care today? How? (Homelessness, low income, unemployed, alcoholism, drug addiction, transportation, low edu. Level, literacy, decrease access to med. care, fdc, rehab)? @ -none Was there de-escalation of care discussed even if they declined (Discuss DNR or withdrawal of care, Hospice)? DNR status @ -no What co-morbidities impacted this encounter? (DM, HTN, Smoking, COPD, CAD, Cancer, CVA, ARF, Chemo, Hep., AIDS, mental health diagnosis, sleep apnea, morbid obesity)? @ -none Was patient admitted / discharged? Hospital course, mention meds given and route, prescriptions, significant lab abnormalities, going to OR and other pertinent info. @ - 44 female to the ER for evaluation patient presents for severe back pain today acute on chronic back pain with recent procedure. Pain is controlled CT is negative patient can be discharged home Discharge Undiagnosed new problem with uncertain prognosis? @ -no Drug Therapy requiring intensive monitoring for toxicity (Heparin, Nitro, Insulin, Cardizem)? @ -no Were any procedures done? @ -no Diagnosis/symptom? @ -Chronic pain back pain Acute, or Chronic, or Acute on Chronic? @ -Acute Uncomplicated (without systemic symptoms) or Complicated (systemic symptoms)? @ -Complicated Side effects of treatment? @ -no Exacerbation, Progression, or Severe Exacerbation? @ -exacerbation Poses a threat to life or bodily function? How? (Chest pain, [place], [place], pneumonia, PE, COPD, DKA, ARF, appy, cholecystitis, CVA, Diverticulitis, Homicidal, Suicidal, threat to staff... and all critical care pts) @ -no Reevaluation #5: Differential Back Pain: Strain, zoster, cauda equina syndrome, epidural abscess, vertebral osteomyelitis, discitis, fracture, subluxation, disc herniation, DJD, spinal stenosis, dissection, AAA, pancreatitis, peptic ulcer disease, pyelonephritis, kidney stone, this is not meant to be an all-inclusive list. Medical Decision Making - Medical Decision Making 44 female to the ER for evaluation patient presents for severe back pain today acute on chronic back pain with recent procedure. Pain is controlled CT is negative patient can be discharged home - Lab Data Result diagrams: 10/23/24 09:01 10/23/24 09:01 Lab Results 10/23/24 10/23/24 10/23/24 Range/Units 09:01 09:01 09:01 WBC 6.5 (3.8-10.6) k/uL RBC 5.22 (3.80-5.40) m/uL Hgb 14.7 (11.4-16.0) gm/dL Hct 45.7 (34.0-46.0) % MCV 87.5 (80.0-100.0) fL MCH 28.1 (25.0-35.0) pg MCHC 32.1 (31.0-37.0) g/dL RDW 12.8 (11.5-15.5) % Plt Count 315 (150-450) k/uL MPV 6.8 Neutrophils % 48 % Lymphocytes % 39 % Monocytes % 8 % Eosinophils % 2 % Basophils % 1 % Neutrophils # 3.1 (1.3-7.7) k/uL Lymphocytes # 2.6 (1.0-4.8) k/uL Monocytes # 0.5 (0-1.0) k/uL Eosinophils # 0.1 (0-0.7) k/uL Basophils # 0.1 (0-0.2) k/uL Sodium 140 (137-145) mmol/L Potassium 3.9 (3.5-5.1) mmol/L Chloride 102 (98-107) mmol/L Carbon Dioxide 29 (22-30) mmol/L Anion Gap 9 mmol/L BUN 14 (7-17) mg/dL Creatinine 0.71 (0.52-1.04) mg/dL Est GFR (CKD-EPI)AfAm >90 (>60 ml/min/1.73 sqM) Est GFR (CKD-EPI)NonAf >90 (>60 ml/min/1.73 sqM) Glucose 85 (74-99) mg/dL Calcium 10.0 (8.4-10.2) mg/dL Phosphorus 3.5 (2.5-4.5) mg/dL Magnesium 1.9 (1.6-2.3) mg/dL Total Bilirubin 0.5 (0.2-1.3) mg/dL AST 31 (14-36) U/L ALT 28 (4-34) U/L Alkaline Phosphatase 90 (38-126) U/L Total Protein 7.5 (6.3-8.2) g/dL Albumin 4.3 (3.5-5.0) g/dL Urine Color Colorless Urine Appearance Clear (Clear) Urine pH 7.0 (5.0-8.0) Ur Specific [place] 1.007 (1.001-1.035) Urine Protein Negative (Negative) Urine Glucose (UA) Negative (Negative) Urine Ketones Negative (Negative) Urine Blood Negative (Negative) Urine Nitrite Negative (Negative) Urine Bilirubin Negative (Negative) Urine Urobilinogen <2.0 (<2.0) mg/dL Ur Leukocyte Esterase Negative (Negative) - Radiology Data Radiology results: report reviewed (CT abdomen pelvis negative for acute disease), image reviewed Disposition Clinical Impression: Mechanical back pain, Thoracic back pain Disposition: HOME SELF-CARE Condition: Good Instructions (If sedation given, give patient instructions): Acute Low Back Pain (ED) Is patient prescribed a controlled substance at d/c from ED?: No Referrals: Mike De León DO [Primary Care Provider] - 1-2 days Time of Disposition: 10:30
[2024-10-23] MEDS: MORPHINE SULFATE 4 MG/ML SYRINGE IV STA (09:10)
[2024-10-23 09:11] LABS: Basophils # (A) 0.1 k/uL (0-0.2); Basophils % (A) 1 %; Eosinophils # (A) 0.1 k/uL (0-0.7); Eosinophils % (A) 2 %; HCT 45.7 % (34.0-46.0); HGB 14.7 gm/dL (11.4-16.0); Lymphocytes # (A) 2.6 k/uL (1.0-4.8); Lymphocytes % (A) 39 %; MCH 28.1 pg (25.0-35.0); MCHC 32.1 g/dL (31.0-37.0); MCV 87.5 fL (80.0-100.0); Mean Platelet Volume 6.8; Monocytes # (A) 0.5 k/uL (0-1.0); Monocytes % (A) 8 %; Neutrophils # (A) 3.1 k/uL (1.3-7.7); Neutrophils % (A) 48 %; Platelet Count 315 k/uL (150-450); RBC 5.22 m/uL (3.80-5.40); RDW 12.8 % (11.5-15.5); WBC 6.5 k/uL (3.8-10.6)
[2024-10-23] MEDS: ONDANSETRON 4 MG/2 ML VIAL IVP STA (09:11)
[2024-10-23] MEDS: KETOROLAC 15 MG/ML 1 ML VIAL IVP STA (09:11)
[2024-10-23 09:12] LABS: Appearance,Urine Clear (Clear); Bilirubin,Urine Negative (Negative); Blood,Urine Negative (Negative); Color,Urine Colorless; Glucose,Urine (UA) Negative (Negative); Ketones,Urine Negative (Negative); Leukocyte Esterase,Urine Negative (Negative); Nitrite,Urine Negative (Negative); Protein,Urine Negative (Negative); Specific Gravity,Urine 1.007 (1.001-1.035); Urobilinogen,Urine <2.0 mg/dL (<2.0)
[2024-10-23 09:40] LABS: ALT 28 U/L (4-34); AST 31 U/L (14-36); African American GFR (CKD) >90 (>60 ml/min/1.73 sqM); Albumin 4.3 g/dL (3.5-5.0); Alkaline Phosphatase 90 U/L (38-126); Anion Gap 9 mmol/L; Blood Urea Nitrogen 14 mg/dL (7-17); Carbon Dioxide 29 mmol/L (22-30); Chloride 102 mmol/L (98-107); Glucose 85 mg/dL (74-99); Magnesium 1.9 mg/dL (1.6-2.3); Non-African American GFR(CKD) >90 (>60 ml/min/1.73 sqM); Phosphorus 3.5 mg/dL (2.5-4.5); Potassium 3.9 mmol/L (3.5-5.1); Sodium 140 mmol/L (137-145); Total Bilirubin 0.5 mg/dL (0.2-1.3); Total Protein 7.5 g/dL (6.3-8.2)
--- NOTE | 2024-10-23 09:55 | CT ---
EXAMINATION TYPE: CT abdomen pelvis wo con DATE OF EXAM: 10/23/2024 9:35 AM COMPARISON: 08/10/2022 CLINICAL INDICATION: Female, 44 years old with history of pain; ABD PAIN, left flank pain TECHNIQUE: Axial CT abdomen pelvis wo con;Sagittal and coronal reformats were created on a separate workstation. No contrast. CT DLP: 643.4 mGycm, Automated exposure control for dose reduction was used. FINDINGS: LOWER CHEST: Unremarkable ABDOMEN LIVER: Unremarkable GALLBLADDER AND BILE DUCTS: Gallbladder surgically absent. PANCREAS: Unremarkable. SPLEEN: Unremarkable. ADRENAL GLANDS: Unremarkable. KIDNEYS AND URETERS: No evidence of hydronephrosis or renal calculus. The ureters are unremarkable. PELVIS BLADDER: No evidence for wall thickening or mass given limitations of exam. Left-sided pelvic phlebol iths, unchanged from 08/10/2022. REPRODUCTIVE: Uterus anteverted. Both ovaries are visualized. Mottled density within the upper vagina l canal, suggestive of a tampon. ABDOMEN & PELVIS STOMACH AND BOWEL: Status post sleeve gastrectomy. Slightly distended stomach after surgery.Correlate for any recurrent weight gain. No evidence of bowel obstruction. Mild scattered stool. No pericolic inflammatory change. Status post appendectomy. PERITONEUM/RETROPERITONEUM: No evidence of pneumoperitoneum or free fluid. VASCULATURE: No evidence of aortic aneurysm. MUSCULOSKELETAL: No acute osseous abnormalities LYMPH NODES: No gross evidence for lymphadenopathy. SOFT TISSUE/ABDOMINAL WALL: Unremarkable IMPRESSION: 1. No nephrolithiasis or hydronephrosis. 2. Status post sleeve gastrectomy. Somewhat distended appearance to the stomach following surgery. Co rrelate for any recurrent weight gain. [facility], , 10/23/2024 9:52 AM
[2024-10-23] MEDS: ACETAMINOPHEN TAB 500 MG TAB PO STA (10:31)
[2024-10-23] MEDS: HYDROmorphone 1 MG/ML 1 ML SYRINGE IVP STA (10:33)
[2024-10-23 10:36] VITALS: RESP 20
[2024-10-23 11:20] VITALS: BP 120/82; PULSE 71; TEMP 98.2
== END 2024-10-23 11:25 | disposition home or self-care (01) ==
LOC: EC 08:16
DX: G89.29 Other chronic pain (principal); M54.50 Low back pain, unspecified; M54.6 Pain in thoracic spine; Z88.8 Allergy status to other drugs, medicaments and biological substances; Z87.891 Personal history of nicotine dependence
CPT/HCPCS: 36415; 80053; 83735; 84100; 85025; 81003; 74176; 99284; 96374; 96375 ×3; 96361; J2270; J2405; J1171; J1885

== ENCOUNTER → 2024-11-06 | Outpatient (CLI) | payer OTHER ==
[2024-11-06 08:41] VITALS: BP 101/70; PULSE 74; RESP 19; TEMP 98.6
--- NOTE | 2024-11-06 16:29 | P.PAINPG ---
PQRS Measure Charge Sheet Comment: HISTORY OF PRESENT ILLNESS: A 44 yr old female presents today w severe and chronic LBP > 1 yr secondary to radiculopathy, spondylosis and facet arthropathy without myelopathy for evaluation s/p BL MBB L5-S1 #1. Pt states she experienced 80 % pain relief x 4 hrs s/p procedure. Pt states pain level is provoked at 6-7 /10 in intensity, intermittent, localized in the lower lumbar spine, L> R, predominantly axial, sharp in character without shooting pain. Pain is provoked by walking for periods > 20 min. Pain is alleviated by PT x 6-8 wks in 2022, chiropractic treatments monthly x 1 yr w last visit in Jul 2024, physician guided home exercises/ stretches 5 times weekly since Jul 2023, heat, ice, medications, topical, repositioning and rest . Interventional procedures include BL SI injection x1 (Dec 2023), BL TFESI L5-S1 x1 (Jan 2024), L SI x1, BL MBB L3-L5 x1 Medications include Tyl, CBD Oil REVIEW OF ORGAN SYSTEMS: CONSTITUTIONAL: No fevers or chills. No recent weight loss. NEUROLOGICAL: + numbness and tingling along the distal extremities. No seizure disorders or headaches. MUSCULOSKELETAL: + pain PSYCHIATRIC: Denies current depression or suicidal thoughts. Physical Examinations : Constitutional : Cooperative , not in acute distress . Neurologic : Cranial nerve II to XII intact. No focal neurological deficits. Psychiatric : alert & oriented x 3. Matching mood & appropriate affect. Judgment & insight intact. Musculoskeletal : Cervical Spine Motor strength in the deltoid and biceps: Normal right side. Normal Left side Motor strength biceps and the wrist extensors: Normal right side . Normal left side Motor strength in the triceps muscle: Normal right side. Normal left side Deep tendon reflexes: Normal at the biceps. Normal at Brachioradialis. Normal at triceps Vertebral body tenderness to deep palpation over Cervical facet loading test: positive bilaterally Spurling test: positive bilaterally Neck distraction test: positive bilaterally Renee sign: positive bilaterally Lumbar spine Motor strength lower extremities ,thigh and legs 5/5 Right side , 5/5 Left side Deep tendon reflexes : Normal Knee Jerk. Normal Ankle Jerk Vertebral body tenderness over L4 Kidd Test positive BL L5-S1 L> R Lumbar facet Loading Test: positive Right < positive Left L5-S1 Range of motion of the lumbar spine Flexion 30 degrees, extension 10 degrees Straight Leg Raise test: Left/ Right positive at <35 degrees Rohith test: positive right / positive left. Severe tenderness over the Sacroiliac j oint on the Right / Left sides Gaenslen test: positive bilaterally Seated flexion test: positive bilaterally. Sacral spine : Severe tenderness over the Sacroiliac joint: right side / left side Range of motion: Flexion of the lumbar spine <60 degrees Range of motion: Extension of the lumbar spine <20 degrees Gaenslen's Test positive L Rohith test: positive right side < left side Thigh Thrust Test +L positive Sacral Thrust Test Imaging: MRI non contrast of the lumbar spine from 11/06/2023 reviewed Assessment/ Plan : Lumbar radiculopathy, BL Sacroiliitis Recommendation of follow up w Dr Miller to explore additional treatment options. All questions answered. I have spent greater than 30 minutes on patient care today. Dr Lyle was available by phone for the evaluation of this patient. The time was used to review the medical records including relevant urine studies and Prescription history (MAPs), review of the available imaging, evaluation and examination of the patient, coordination of care with the medical staff and if applicable referring physicians, as well as creation of the medical record PQRS Narrative: Smoking Status Former smoker Hx Alcohol Use (MH) Yes: rare Home Medications: Ambulatory Orders Montelukast [Singulair] 10 mg PO HS 02/01/17 Amitriptyline HCl [Elavil] 20 mg PO HS 08/13/20 Fluticasone Nasal [place] [Flonase Nasal [place]] 1 spr EA NOSTRIL BID 08/13/20 Loratadine [Claritin] 10 mg PO DAILY 08/13/20 Rimegepant Sulfate [Nurtec Odt] 75 mg PO DAILY PRN 08/10/22 Acetaminophen Tab [Tylenol] 1,000 mg PO Q6HR PRN #30 tablet 03/24/23 Omeprazole [PriLOSEC] 40 mg PO DAILY #30 cap 03/24/23 Atorvastatin Calcium 80 mg PO HS 12/21/23 Calcium Carb-Vit D 250Mg-125Un [Oscal 250+D 3.125 Mcg (125 Iu)] 1 each PO BID 12/21/23 Magnesium 500 mg PO DAILY 12/21/23 Pentosan Polysulfate Sodium [Elmiron] 100 mg PO BID 12/21/23 Vit No.179/Iron/Folic [ Tablet] 1 each PO DAILY 12/21/23 Controlled Substance Measures - Controlled Substance Measures Is patient prescribed a controlled substance at discharge?: No
== END ==
LOC: PNWHC3 08:11
PROVIDERS: ATTEND Specialist
DX: M47.26 Other spondylosis with radiculopathy, lumbar region (principal); M46.1 Sacroiliitis, not elsewhere classified; Z87.891 Personal history of nicotine dependence; Z88.8 Allergy status to other drugs, medicaments and biological substances
CPT/HCPCS: 99212

== ENCOUNTER 2024-11-27 09:31 | Day surgery (SDC) | payer OTHER ==
[2024-11-25 13:58] VITALS: BMI 32.1
[2024-11-27] MEDS: IV FLUID CONTINUATION 1,000 ML IV ONE (10:28)
[2024-11-27 10:43] VITALS: TEMP 97.3
[2024-11-27] MEDS: LACTATED RINGERS 1,000 ML IV SCH (10:48)
[2024-11-27] MEDS ORDERED: PROPOFOL 10 MG/ML 20 ML VIAL IV ONE (11:02)
[2024-11-27] MEDS ORDERED: LIDOCAINE 1% INJ 10MG/ML (20 ML MDV) ONE (11:02)
[2024-11-27] MEDS ORDERED: MIDAZOLAM 2 MG/2 ML VIAL ONE (11:02)
--- NOTE | 2024-11-27 11:10 | P.PCN ---
Date of Procedure: 11/27/24 Procedure(s) Performed: BRIEF HISTORY: Patient is a 44-year-old, pleasant, white female scheduled for an upper endoscopy as a part of evaluation of longstanding history of GERD. She has history of gastric sleeve surgery done in the past. Patient had omeprazole 40 mg daily and still has daily symptoms. PROCEDURE PERFORMED: Esophagogastroduodenoscopy with biopsy. PREOPERATIVE DIAGNOSIS: Longstanding history of GERD. IV sedation per anesthesia. PROCEDURE: After informed consent was obtained, the patient was brought into the endoscopy unit. IV sedation was administered by Anesthesia under continuous monitoring. Initially the Olympus GIF-140 video endoscope was inserted into the mouth. Esophagus intubated without any difficulty. It was gradually advanced into the stomach and duodenum and carefully examined. The bulb and the second part of the duodenum appeared normal. The scope at this time was withdrawn to the stomach, adequately insufflated with air, and upon careful examination, mucosa of the antrum, and mild gastritis and biopsies were done from this area. There was evidence of gastric sleeve surgery noted in the mucosa in the gastric sleeve appeared normal. The scope was then withdrawn into the esophagus. Small hiatal hernia noted. The GE junction was located at 39 cm from the incisors. It appeared slightly irregular. No evidence of Sofia's esophagus. The esophagus appeared normal. There were no erosions or ulcerations seen and the patient tolerated the procedure well. IMPRESSION: 1. Small hiatal hernia but no evidence of esophagitis or Sofia's esophagus. 2. Evidence of gastric sleeve surgery 3. Mild antral gastric. RECOMMENDATIONS: The findings of this examination were discussed with the patient as well as her family.. She was advised to follow-up with the biopsy results. Continue with omeprazole 40 mg daily and follow antireflux measures.
[2024-11-27 12:12] VITALS: BP 106/72; PULSE 70; RESP 18
== END 2024-11-27 12:32 | disposition home or self-care (01) ==
LOC: ORWHC2ENDO 09:31
PROVIDERS: ATTEND Internal Medicine Gastroenterology
DX: K21.9 Gastro-esophageal reflux disease without esophagitis (principal); K44.9 Diaphragmatic hernia without obstruction or gangrene; K29.70 Gastritis, unspecified, without bleeding; K31.89 Other diseases of stomach and duodenum; E78.5 Hyperlipidemia, unspecified; Z98.84 Bariatric surgery status; Z79.899 Other long term (current) drug therapy; Z88.8 Allergy status to other drugs, medicaments and biological substances
CPT/HCPCS: 81025; 43239; J2250; J2003; J2704; 88305

== ENCOUNTER → 2024-12-03 | Outpatient (CLI) | payer OTHER ==
[2024-12-03 15:31] LABS: Prothrombin Time 11.2 sec (9.9-11.9)
[2024-12-03 15:52] LABS: ALT 23 U/L (8-44); AST 22 U/L (13-35); Albumin 4.1 g/dL (3.8-4.9); Albumin/Globulin Ratio 1.46 Ratio (1.60-3.17); Alkaline Phosphatase 100 U/L (41-126); BUN/Creat Ratio 15.29 Ratio (12.00-20.00); Blood Urea Nitrogen 10.7 mg/dL (9.0-27.0); Calcium 9.6 mg/dL (8.7-10.3); Carbon Dioxide 24.8 mmol/L (21.6-31.8); Chloride 100 mmol/L (96-109); Globulin 2.8 g/dL (1.6-3.3); Glucose 91 mg/dL (70-110); Potassium 3.9 mmol/L (3.5-5.5); Sodium 136 mmol/L (135-145); Total Bilirubin 0.3 mg/dL (0.3-1.2); Total Protein 6.9 g/dL (6.2-8.2)
[2024-12-03 15:55] LABS: Basophils # (A) 0.05 X 10*3/uL (0.00-0.10); Basophils % (A) 0.9 %; Eosinophils # (A) 0.09 X 10*3/uL (0.04-0.35); Eosinophils % (A) 1.7 %; HCT 41.8 % (37.2-46.3); Lymphocytes # (A) 1.87 X 10*3/uL (0.90-5.00); Lymphocytes % (A) 35.3 %; MCH 28.9 pg (27.0-32.0); MCHC 33.5 g/dL (32.0-37.0); MCV 86.4 FL (80.0-97.0); Mean Platelet Volume 9.6 FL (9.5-12.2); Monocytes # (A) 0.45 X 10*3/uL (0.20-1.00); Monocytes % (A) 8.5 %; NRBC Per 100 WBC 0 X 10*3/uL (0.00-0.01); Neutrophils # (A) 2.81 X 10*3/uL (1.80-7.70); Neutrophils % (A) 53.2 %; Platelet Count 294 X 10*3/uL (140-440); RBC 4.84 X 10*6/uL (4.10-5.20); RDW 12.1 % (11.5-14.5); WBC 5.29 X 10*3/uL (4.50-10.00)
== END | disposition home or self-care (01) ==
LOC: LABWHC1 09:30
PROVIDERS: ATTEND Orthopaedic Surgery
DX: Z01.812 Encounter for preprocedural laboratory examination (principal); M46.96 Unspecified inflammatory spondylopathy, lumbar region; R58 Hemorrhage, not elsewhere classified; Z79.899 Other long term (current) drug therapy
CPT/HCPCS: 36415; 80053; 85025; 85610

== ENCOUNTER → 2024-12-11 | Outpatient (CLI) | payer OTHER ==
--- NOTE | 2024-12-11 12:44 | MM ---
Reason for Exam: Screening (asymptomatic). Last screening mammogram was performed 11 month(s) ago. Patient History: Menarche at age 10. Patient has no children. Premenopausal. Currently using Hormonal Contraceptives, for 5 years. Maternal grandmother had breast cancer, age 28. Paternal aunt had breast cancer. Last menstrual period: 11/18/2024 Risk Values: Deya 5 year model risk: 0.9%. NCI Lifetime model risk: 11.8%. Prior Study Comparison: 11/29/2021 Bilateral Diagnostic Mammogram, [facility]. 12/26/2022 Bilateral MG 3D screening mammo w/cad, [facility]. 12/28/2023 Bilateral MG 3D screening mammo w/cad, [facility]. Tissue Density: The breasts are extremely dense, which lowers the sensitivity of mammography. Findings: Analyzed By CAD. Right breast: There is no suspicious group of microcalcifications or new suspicious mass. Left breast: There is no suspicious group of microcalcifications or new suspicious mass. Overall Assessment: Negative, BI-RAD 1 Management: Screening Mammogram of both breasts in [address] [facility] will attempt to contact patient to return for supplemental views and ultrasound if indicated. Patient should continue monthly self-breast exams. A clinical breast exam by your physician is recommended on an annual basis. This exam should not preclude additional follow-up of suspicious palpable abnormalities. Note on Deya scores and lifetime risk: 1. A Deya score greater than 3% is considered moderate risk. If this is the case, consider specialist referral to assess eligibility for a risk reducing agent. 2. If overall lifetime risk for the development of breast cancer is 20% or higher, the patient may qualify for future screening with alternating mammogram and breast MRI. [facility], , 12/11/2024 12:41 PM. Electronically signed and approved by: Kannan Zambrano DO
== END | disposition home or self-care (01) ==
LOC: RADMAMWWP 11:30
PROVIDERS: ATTEND Family Medicine
DX: Z12.31 Encounter for screening mammogram for malignant neoplasm of breast (principal); R92.343 Mammographic extreme density, bilateral breasts; Z92.0 Personal history of contraception; Z80.3 Family history of malignant neoplasm of breast
CPT/HCPCS: 77063; 77067